=== PATIENT | male | born 1935 | race Caucasian/White ===

== ENCOUNTER → 2016-12-07 | Outpatient (CLI) | payer OTHER ==
--- NOTE | 2016-12-07 14:42 | DIAGNOSTIC IMAGING REPORT ---
CHEST 2 VIEWS ROUTINE CLINICAL HISTORY: R06.02 Shortness of [id number] COMPARISON STUDY: CT chest [facility] 08/14/2014 FINDINGS: Right mid hemithoracic masslike process stable to slightly improved from the prior CT exam. A left hilar fullness and left perihilar atelectatic change stable. No significant new or interval finding. Baseline emphysematous change. Chronic elevation right hemidiaphragm. Permanent bipolar cardiac pacemaker. IMPRESSION: Slightly improved exam compared to the patient's prior CT study. Persistent right perihilar masslike process diminished in volume from the prior CT exam. Unchanging left hilar fullness. Baseline emphysematous change unaltered Electronically signed by: Baljeet Myers M.D. 12/07/2016 2:40 PM Dictated Date/Time: 12/07/2016 2:38 PM
== END | disposition home or self-care (01) ==
LOC: C.RAD1850 14:22
PROVIDERS: ATTEND Physician Assistant Medical
DX: R06.02 Shortness of breath (principal)

== ENCOUNTER 2018-10-25 10:52 | Inpatient (IN) ==
[2018-10-25] MEDS ORDERED: OXYMETAZOLINE 0.05% 30 ML BTL ONE (11:01)
[2018-10-25] MEDS ORDERED: OXYMETAZOLINE 0.05% 30 ML BTL NAE ONE (11:04)
[2018-10-25] MEDS ORDERED: TRANEXAMIC ACID 10% SOLN for EPISTAXIS TOP ONE (11:31)
[2018-10-25] MEDS ORDERED: MoRPHine SULFATE 4 MG/ML 1 ML CARP\\VIAL IV STA (11:53)
[2018-10-25] MEDS ORDERED: ONDANSETRON INJ 2 MG/ML 2 ML VIAL IV STA (11:53)
[2018-10-25 12:43] LABS: Basophils # (auto) 0.01 K/uL (0-0.2); Basophils % (auto) 0.1 %; Eosinophils # (auto) 0.04 K/uL (0-0.5); Eosinophils % (auto) 0.4 %; Hematocrit (blood only) 30.2 % (42-52); Hemoglobin 10.2 g/dL (14.0-18.0); Immature Granulocytes # (auto) 0.03 K/uL (0.00-0.02); Immature Granulocytes % (auto) 0.3 %; Lymphocytes # (auto) 0.39 K/uL (1.2-3.4); Lymphocytes % (auto) 4.1 %; Mean Corpuscular Hgb Conc 33.8 g/dL (32-36); Mean Corpuscular Volume 90.7 fL (80-100); Monocytes # (auto) 0.18 K/uL (0.11-0.59); Monocytes % (auto) 1.9 %; Neutrophils # (auto) 8.96 K/uL (1.4-6.5); Neutrophils % (auto) 93.2 %; Platelet Count 151 K/uL (130-400); RDW Coefficient of Variation 13.8 % (11.5-14.5); RDW Standard Deviation 46.3 fL (36.4-46.3); Red Blood Count 3.33 M/uL (4.7-6.1); White Blood Count 9.61 K/uL (4.8-10.8)
[2018-10-25 12:56] LABS: INR 1.2 (0.9-1.1); Partial Thromboplastin Time 27.3 Seconds (21.0-31.0); Prothrombin Time 12.5 Seconds (9.0-12.0)
[2018-10-25 13:05] LABS: BUN Creatinine Ratio 23.8 (10-20); Calcium 8.1 mg/dl (8.5-10.1); Est GFR (African American) 57.7; Est GFR (Non-African American) 49.8; Potassium 5.5 mmol/L (3.5-5.1)
[2018-10-25 13:08] LABS: Albumin Globulin Ratio 1.2 (0.9-2); Bilirubin,Total 0.4 mg/dl (0.2-1); Globulin 2.5 gm/dl (2.5-4.0); Total Protein 5.5 gm/dl (6.4-8.2)
[2018-10-25] MEDS ORDERED: AMOXICILLIN/CLAVULANATE 875 MG TAB PO ONE (13:09)
--- NOTE | 2018-10-25 15:01 | Emergency Department Note ---
Entered by Varun Carpenter acting as a scribe for History of Present Illness General Chief complaint: Nose Bleed (Minor) Time Seen by Provider: 10/25/18 11:31 Source: patient Limitations: no limitations History of Present Illness Provider complaint: Nose bleed Onset (ago): hour(s) Location: face (nose) Severity: severe Pain Consistency: + constant Maximum Pain Intensity: 4 Quality: + other (epistaxis) Associated symptoms: + denies other symptoms Treatments prior to arrival: none The patient is an 83 year old male who presents to the Emergency Room with complaints of a severe and constant nose bleed that began shortly prior to arrival. The patient believes that the majority of the blood is coming from the left naris. He notes one previous episode of significant epistaxis that occurred about 30 years ago. He is on Aspirin daily. Home Medications Home Medications Medication Instructions Recorded Confirmed Type albuterol sulfate 2.5 mg INHALATION Q6 10/25/18 10/25/18 History albuterol sulfate [Ventolin HFA] 2 puff INHALATION Q6H PRN 10/25/18 10/25/18 History budesonide-formoterol [Symbicort] 2 puff INHALATION BID 10/25/18 10/25/18 History cholecalciferol (vitamin D3) 1,000 unit PO QAM 10/25/18 10/25/18 History [Vitamin D3] garlic 2,000 mg PO QAM 10/25/18 10/25/18 History npvdamqd-gyx-BL-lycopen-lutein 1 tab PO QAM 10/25/18 10/25/18 History [Centrum Silver] omega 6-bpx-ycy-fish oil [Fish Oil] 1 cap PO QAM 10/25/18 10/25/18 History prazosin 2 mg PO QAM 10/25/18 10/25/18 History simvastatin 20 mg PO HS 10/25/18 10/25/18 History finasteride 5 mg PO HS #30 tab 10/26/18 Rx magnesium oxide 400 mg PO BID #60 tab 10/26/18 10/25/18 Rx metformin 1,000 mg PO BID #60 tab 10/26/18 Rx sodium chloride [Saline Nasal] 2 sprays INTNAS Q3H PRN #30 ml 10/26/18 Rx Allergies Allergy/AdvReac Type Severity Reaction Status Date / Time No Known Allergies Allergy Unverified 10/25/18 12:26 Past Med/Surg History Medical History Anemia Asthma BPH (benign prostatic hyperplasia) Chronic silicosis Epistaxis H/O cardiac pacemaker HTN (hypertension) Surgical History H/O inguinal hernia repair History of orchiectomy Family History Other Dyslipidemia HTN (hypertension) Social History Current Living Situation: Alone Other Information That Helps Us Care for You: No Feels Safe at Home: Yes Safety Concerns: Feels Safe At This Time Smoking Status: Never smoker Hx Alcohol Use: No (not for many years) Hx Substance Use: No Beliefs That Will Affect Care: None Preferred Language: Serbian Review of Systems See HPI for pertinent positives & negatives. and A total of 10 systems reviewed and were otherwise negative Physical Exam Vital Signs Vital Signs - 24 hr 10/26/18 08:00 10/26/18 09:55 10/26/18 10:03 Temperature Temperature Source Pulse Rate - Lying Pulse Rate - Sitting Pulse Rate - Standing Pulse Rate [Right Finger] 72 79 Respiratory Rate 20 Respiratory Effort / Characteristics SOB on Exertion Respiratory Depth Normal Blood Pressure - Lying Blood Pressure - Sitting Blood Pressure- Standing Blood Pressure [Left Arm] Blood Pressure [Right Arm] 111/50 L 94/49 L Blood Pressure Mean [Right Arm] 70 64 Blood Pressure Position [Right Arm] Sitting Pulse Oximetry 93 Oxygen Delivery Method Room Air 10/26/18 10:04 10/26/18 11:12 10/26/18 11:14 Temperature 36.4 C L Temperature Source Oral Pulse Rate - Lying 75 Pulse Rate - Sitting 84 Pulse Rate - Standing 83 Pulse Rate [Right Finger] 75 75 Respiratory Rate 19 Respiratory Effort / Characteristics Respiratory Depth Blood Pressure - Lying 133/61 Blood Pressure - Sitting 115/50 L Blood Pressure- Standing 110/60 Blood Pressure [Left Arm] Blood Pressure [Right Arm] 79/51 L 133/61 Blood Pressure Mean [Right Arm] 60 85 Blood Pressure Position [Right Arm] Standing Lying Pulse Oximetry 93 Oxygen Delivery Method Room Air 10/26/18 15:14 10/26/18 18:13 Temperature 36.5 C 36.5 C Temperature Source Oral Pulse Rate - Lying Pulse Rate - Sitting Pulse Rate - Standing Pulse Rate [Right Finger] 70 70 Respiratory Rate 19 19 Respiratory Effort / Characteristics Respiratory Depth Blood Pressure - Lying Blood Pressure - Sitting Blood Pressure- Standing Blood Pressure [Left Arm] 129/61 Blood Pressure [Right Arm] 115/56 L 115/56 L Blood Pressure Mean [Right Arm] 75 Blood Pressure Position [Right Arm] Sitting Pulse Oximetry 98 98 Oxygen Delivery Method Room Air GENERAL: Awake, alert, well-appearing, in no acute distress HENT: Normocephalic, atraumatic. Oropharynx unremarkable. There is a large amount of blood mostly present to the left nostril. EYES: Normal conjunctiva. Sclera non-icteric. NECK: Supple. No nuchal rigidity. FROM. No JVD. RESPIRATORY: Clear to auscultation. CARDIAC: Regular rate, normal rhythm. Extremities warm and well perfused. Pulses equal. ABDOMEN: Soft, non-distended. No tenderness to palpation. No rebound or guarding. No masses. RECTAL: Deferred. MUSCULOSKELETAL: Chest examination reveals no tenderness. The back is symmetrical on inspection without obvious abnormality. There is no CVA tenderness to palpation. No joint edema. LOWER EXTREMITIES: Calves are equal size bilaterally and non-tender. No edema. No discoloration. NEURO: Normal sensorium. No sensory or motor deficits noted. SKIN: No rash or jaundice noted. Procedures Epistaxis Control Time Out Performed: Yes Nostril: left Nose Prepped With: lidocaine, oxymetazoline and other (TXA) Direct Inspection: unable to visualize Clots Removed by: suction Cautery Used: none Device Inserted: nasal tampon and hemostatic balloon Patient Tolerated Procedure: well Complications: continued epistaxis Course 1118: Past medical records reviewed. The patient was evaluated in room A10, and a complete history and physical examination were performed. 1252: I checked on the patient at this time. The bleeding is much controlled. 1355: I discussed the case with Dr. Js DOSS. He agrees with the treatment plan. 1409: I reviewed the patient's case with Dr. Guicho Salazar [facility] Hospitalist. He will evaluate the patient for further management. Consultations Consultation #1: 1355: I discussed the case with Dr. Js DOSS. He agrees with the treatment plan. Consultation #2: 1409: I reviewed the patient's case with Dr. Guicho Salazar [facility] Hospitalist. He will evaluate the patient for further management. Administered Medications Discontinued Medications Amoxicillin/Clavulanate Potassium (Augmentin 875mg) 1 tab PO NOW ONE Stop: 10/25/18 13:10 Last Admin: 10/25/18 14:04 Dose: 1 tab Budesonide/Formoterol Fumarate (Symbicort 160mcg/4.5mcg) 2 puffs INH BID ANNA Stop: 11/24/18 20:59 Last Admin: 10/26/18 08:06 Dose: 2 puffs Admin: 10/25/18 20:39 Dose: 2 puffs Sodium Chloride (Nss 1000ml) 1,000 mls @ 80 mls/hr IV .[id number] ANNA Stop: 10/26/18 05:29 Last Infusion: 10/26/18 05:29 Dose: 0 mls/hr Admin: 10/25/18 17:09 Dose: 80 mls/hr Sodium Chloride (Nss 1000ml) 1,000 mls @ 999 mls/hr IV .Q1H1M ONE Stop: 10/26/18 11:09 Last Infusion: 10/26/18 11:23 Dose: 0 mls/hr Admin: 10/26/18 10:22 Dose: 999 mls/hr Insulin Aspart (Novolog Flexpen) 0 units SC ACHS ANNA Stop: 11/25/18 11:29 Last Admin: 10/26/18 16:48 Dose: 5 units Admin: 10/26/18 11:57 Dose: 6 units Magnesium Oxide (Mag-Ox) 400 mg PO QID ANNA Stop: 11/24/18 16:59 Last Admin: 10/26/18 16:49 Dose: 400 mg Admin: 10/26/18 11:59 Dose: 400 mg Admin: 10/26/18 08:06 Dose: 400 mg Admin: 10/25/18 20:38 Dose: 400 mg Admin: 10/25/18 18:22 Dose: 400 mg Morphine Sulfate (Morphine Sulfate) 4 mg IV NOW STA Stop: 10/25/18 11:54 Last Admin: 10/25/18 11:57 Dose: 4 mg Ondansetron HCl (Zofran) 4 mg IV NOW STA Stop: 10/25/18 11:54 Last Admin: 10/25/18 11:57 Dose: 4 mg Oxymetazoline HCl (Afrin 0.05%) Confirm Administered Dose 75 sprays .ROUTE .STK- MED ONE Stop: 10/25/18 11:02 Last Admin: 10/25/18 11:33 Dose: Not Given Oxymetazoline HCl (Afrin 0.05%) 2 sprays VANESSA NOW ONE Stop: 10/25/18 11:05 Last Admin: 10/25/18 11:10 Dose: 2 sprays Prazosin HCl (Prazosin Hcl) 2 mg PO QAM ANNA Stop: 11/25/18 08:59 Last Admin: 10/26/18 08:05 Dose: 2 mg Simvastatin (Zocor) 20 mg PO HS ANNA Stop: 11/24/18 20:59 Last Admin: 10/25/18 20:38 Dose: 20 mg Tranexamic Acid (Tranexamic Acid 10% Soln For Epistaxis) 500 mg TOP ONE ONE Stop: 10/25/18 11:32 Last Admin: 10/25/18 11:52 Dose: 500 mg Vitamin D (Vitamin D3) 1,000 units PO QAM ANNA Stop: 11/25/18 08:59 Last Admin: 10/26/18 08:06 Dose: 1,000 units Medical Decision Making Differential Diagnosis Differential diagnosis: Etiologies such as anterior epistaxis, coagulopathy, thrombocytopenia, traumatic injury, fracture, septal hematoma, infection, posterior epistaxis as well as other pathologies were entertained. Medical Records Attestation: I reviewed the patient's medical records. Home Medications Current Medication List: was personally reviewed by me Laboratory Data Attestation: I reviewed the patient's lab results. Result diagrams: 10/26/18 07:47 10/26/18 07:47 Lab Results 10/25/18 10/25/18 10/25/18 Range/Units 12:32 12:32 12:32 WBC 9.61 (4.8-10.8) K/uL RBC 3.33 L (4.7-6.1) M/uL Hgb 10.2 L (14.0-18.0) g/dL Hct 30.2 L (42-52) % MCV 90.7 (80-100) fL MCH 30.6 (25-34) pg MCHC 33.8 (32-36) g/dL RDW Std Deviation 46.3 (36.4-46.3) fL RDW Coeff of Maria L 13.8 (11.5-14.5) % Plt Count 151 (130-400) K/uL MPV 10.0 (7.4-10.4) fL Immature Gran % (Auto) 0.3 % Neut % (Auto) 93.2 % Lymph % (Auto) 4.1 % [place] % (Auto) 1.9 % Eos % (Auto) 0.4 % Baso % (Auto) 0.1 % Immature Gran # (Auto) 0.03 H (0.00-0.02) K/uL Neut # (Auto) 8.96 H (1.4-6.5) K/uL Lymph # (Auto) 0.39 L (1.2-3.4) K/uL [place] # (Auto) 0.18 (0.11-0.59) K/uL Eos # (Auto) 0.04 (0-0.5) K/uL Baso # (Auto) 0.01 (0-0.2) K/uL PT 12.5 H (9.0-12.0) Seconds INR 1.2 H (0.9-1.1) APTT 27.3 (21.0-31.0) Seconds PTT Ratio 1.0 Sodium 136 (136-145) mmol/L Potassium 5.5 H (3.5-5.1) mmol/L Chloride 106 (98-107) mmol/L Carbon Dioxide 26 (21-32) mmol/L Anion Gap 5.0 (3-11) BUN 31 H (7-18) mg/dl Creatinine 1.30 (0.6-1.4) mg/dl Est Cr Clr Drug Dosing 43.0 ml/min Est GFR ( Amer) 57.7 Est GFR (Non-Af Amer) 49.8 BUN/Creatinine Ratio 23.8 H (10-20) Glucose 213 H (70-99) mg/dl POC Glucose (70-99) Calcium 8.1 L (8.5-10.1) mg/dl Total Bilirubin 0.4 (0.2-1) mg/dl AST 17 (15-37) U/L ALT 20 (12-78) U/L Alkaline Phosphatase 41 L (45-117) U/L Total Protein 5.5 L (6.4-8.2) gm/dl Albumin 3.0 L (3.4-5.0) gm/dl Globulin 2.5 (2.5-4.0) gm/dl Albumin/Globulin Ratio 1.2 (0.9-2) Lipase 56 L (73-393) U/L Urine Color Urine Appearance (Clear) Urine pH (4.5-7.5) Ur Specific Sieper (1.000-1.030) Urine Protein (Negative) Urine Glucose (UA) (Negative) Urine Ketones (Negative) Urine Blood (Negative) Urine Nitrite (Negative) Urine Bilirubin (Negative) Urine Urobilinogen (Negative) Ur Leukocyte Esterase (Negative) Blood Type Antibody Screen 10/25/18 10/25/18 10/25/18 Range/Units 14:22 16:20 17:42 WBC (4.8-10.8) K/uL RBC (4.7-6.1) M/uL Hgb 10.5 L (14.0-18.0) g/dL Hct 31.7 L (42-52) % MCV (80-100) fL MCH (25-34) pg MCHC (32-36) g/dL RDW Std Deviation (36.4-46.3) fL RDW Coeff of Maria L (11.5-14.5) % Plt Count (130-400) K/uL MPV (7.4-10.4) fL Immature Gran % (Auto) % Neut % (Auto) % Lymph % (Auto) % [place] % (Auto) % Eos % (Auto) % Baso % (Auto) % Immature Gran # (Auto) (0.00-0.02) K/uL Neut # (Auto) (1.4-6.5) K/uL Lymph # (Auto) (1.2-3.4) K/uL [place] # (Auto) (0.11-0.59) K/uL Eos # (Auto) (0-0.5) K/uL Baso # (Auto) (0-0.2) K/uL PT (9.0-12.0) Seconds INR (0.9-1.1) APTT (21.0-31.0) Seconds PTT Ratio Sodium (136-145) mmol/L Potassium (3.5-5.1) mmol/L Chloride (98-107) mmol/L Carbon Dioxide (21-32) mmol/L Anion Gap (3-11) BUN (7-18) mg/dl Creatinine (0.6-1.4) mg/dl Est Cr Clr Drug Dosing ml/min Est GFR ( Amer) Est GFR (Non-Af Amer) BUN/Creatinine Ratio (10-20) Glucose (70-99) mg/dl POC Glucose 171 H (70-99) Calcium (8.5-10.1) mg/dl Total Bilirubin (0.2-1) mg/dl AST (15-37) U/L ALT (12-78) U/L Alkaline Phosphatase (45-117) U/L Total Protein (6.4-8.2) gm/dl Albumin (3.4-5.0) gm/dl Globulin (2.5-4.0) gm/dl Albumin/Globulin Ratio (0.9-2) Lipase (73-393) U/L Urine Color Urine Appearance (Clear) Urine pH (4.5-7.5) Ur Specific Sieper (1.000-1.030) Urine Protein (Negative) Urine Glucose (UA) (Negative) Urine Ketones (Negative) Urine Blood (Negative) Urine Nitrite (Negative) Urine Bilirubin (Negative) Urine Urobilinogen (Negative) Ur Leukocyte Esterase (Negative) Blood Type O Positive Antibody Screen NEGATIVE 10/25/18 10/25/18 10/26/18 Range/Units 18:00 20:22 07:14 WBC (4.8-10.8) K/uL RBC (4.7-6.1) M/uL Hgb (14.0-18.0) g/dL Hct (42-52) % MCV (80-100) fL MCH (25-34) pg MCHC (32-36) g/dL RDW Std Deviation (36.4-46.3) fL RDW Coeff of Maria L (11.5-14.5) % Plt Count (130-400) K/uL MPV (7.4-10.4) fL Immature Gran % (Auto) % Neut % (Auto) % Lymph % (Auto) % [place] % (Auto) % Eos % (Auto) % Baso % (Auto) % Immature Gran # (Auto) (0.00-0.02) K/uL Neut # (Auto) (1.4-6.5) K/uL Lymph # (Auto) (1.2-3.4) K/uL [place] # (Auto) (0.11-0.59) K/uL Eos # (Auto) (0-0.5) K/uL Baso # (Auto) (0-0.2) K/uL PT (9.0-12.0) Seconds INR (0.9-1.1) APTT (21.0-31.0) Seconds PTT Ratio Sodium (136-145) mmol/L Potassium (3.5-5.1) mmol/L Chloride (98-107) mmol/L Carbon Dioxide (21-32) mmol/L Anion Gap (3-11) BUN (7-18) mg/dl Creatinine (0.6-1.4) mg/dl Est Cr Clr Drug Dosing ml/min Est GFR ( Amer) Est GFR (Non-Af Amer) BUN/Creatinine Ratio (10-20) Glucose (70-99) mg/dl POC Glucose 181 H 140 H (70-99) Calcium (8.5-10.1) mg/dl Total Bilirubin (0.2-1) mg/dl AST (15-37) U/L ALT (12-78) U/L Alkaline Phosphatase (45-117) U/L Total Protein (6.4-8.2) gm/dl Albumin (3.4-5.0) gm/dl Globulin (2.5-4.0) gm/dl Albumin/Globulin Ratio (0.9-2) Lipase (73-393) U/L Urine Color Yellow Urine Appearance Clear (Clear) Urine pH 7.5 (4.5-7.5) Ur Specific Sieper 1.019 (1.000-1.030) Urine Protein Negative (Negative) Urine Glucose (UA) Trace H (Negative) Urine Ketones Negative (Negative) Urine Blood Negative (Negative) Urine Nitrite Negative (Negative) Urine Bilirubin Negative (Negative) Urine Urobilinogen Negative (Negative) Ur Leukocyte Esterase Negative (Negative) Blood Type Antibody Screen 10/26/18 10/26/18 10/26/18 Range/Units 07:47 07:47 11:19 WBC 10.89 H (4.8-10.8) K/uL RBC 3.60 L (4.7-6.1) M/uL Hgb 11.0 L (14.0-18.0) g/dL Hct 32.3 L (42-52) % MCV 89.7 (80-100) fL MCH 30.6 (25-34) pg MCHC 34.1 (32-36) g/dL RDW Std Deviation 45.9 (36.4-46.3) fL RDW Coeff of Maria L 13.9 (11.5-14.5) % Plt Count 176 (130-400) K/uL MPV 10.1 (7.4-10.4) fL Immature Gran % (Auto) 0.1 % Neut % (Auto) 90.5 % Lymph % (Auto) 5.9 % [place] % (Auto) 3.1 % Eos % (Auto) 0.3 % Baso % (Auto) 0.1 % Immature Gran # (Auto) 0.01 (0.00-0.02) K/uL Neut # (Auto) 9.86 H (1.4-6.5) K/uL Lymph # (Auto) 0.64 L (1.2-3.4) K/uL [place] # (Auto) 0.34 (0.11-0.59) K/uL Eos # (Auto) 0.03 (0-0.5) K/uL Baso # (Auto) 0.01 (0-0.2) K/uL PT (9.0-12.0) Seconds INR (0.9-1.1) APTT (21.0-31.0) Seconds PTT Ratio Sodium 138 (136-145) mmol/L Potassium 4.4 D (3.5-5.1) mmol/L Chloride 105 (98-107) mmol/L Carbon Dioxide 28 (21-32) mmol/L Anion Gap 5.0 (3-11) BUN 36 H (7-18) mg/dl Creatinine 1.32 (0.6-1.4) mg/dl Est Cr Clr Drug Dosing 41.6 ml/min Est GFR ( Amer) 56.6 Est GFR (Non-Af Amer) 48.8 BUN/Creatinine Ratio 27.3 H (10-20) Glucose 143 H (70-99) mg/dl POC Glucose 262 H (70-99) Calcium 8.7 (8.5-10.1) mg/dl Total Bilirubin (0.2-1) mg/dl AST (15-37) U/L ALT (12-78) U/L Alkaline Phosphatase (45-117) U/L Total Protein (6.4-8.2) gm/dl Albumin (3.4-5.0) gm/dl Globulin (2.5-4.0) gm/dl Albumin/Globulin Ratio (0.9-2) Lipase (73-393) U/L Urine Color Urine Appearance (Clear) Urine pH (4.5-7.5) Ur Specific [place] (1.000-1.030) Urine Protein (Negative) Urine Glucose (UA) (Negative) Urine Ketones (Negative) Urine Blood (Negative) Urine Nitrite (Negative) Urine Bilirubin (Negative) Urine Urobilinogen (Negative) Ur Leukocyte Esterase (Negative) Blood Type Antibody Screen 10/26/18 Range/Units 16:15 WBC (4.8-10.8) K/uL RBC (4.7-6.1) M/uL Hgb (14.0-18.0) g/dL Hct (42-52) % MCV (80-100) fL MCH (25-34) pg MCHC (32-36) g/dL RDW Std Deviation (36.4-46.3) fL RDW Coeff of Maria L (11.5-14.5) % Plt Count (130-400) K/uL MPV (7.4-10.4) fL Immature Gran % (Auto) % Neut % (Auto) % Lymph % (Auto) % [place] % (Auto) % Eos % (Auto) % Baso % (Auto) % Immature Gran # (Auto) (0.00-0.02) K/uL Neut # (Auto) (1.4-6.5) K/uL Lymph # (Auto) (1.2-3.4) K/uL [place] # (Auto) (0.11-0.59) K/uL Eos # (Auto) (0-0.5) K/uL Baso # (Auto) (0-0.2) K/uL PT (9.0-12.0) Seconds INR (0.9-1.1) APTT (21.0-31.0) Seconds PTT Ratio Sodium (136-145) mmol/L Potassium (3.5-5.1) mmol/L Chloride (98-107) mmol/L Carbon Dioxide (21-32) mmol/L Anion Gap (3-11) BUN (7-18) mg/dl Creatinine (0.6-1.4) mg/dl Est Cr Clr Drug Dosing ml/min Est GFR ( Amer) Est GFR (Non-Af Amer) BUN/Creatinine Ratio (10-20) Glucose (70-99) mg/dl POC Glucose 211 H (70-99) Calcium (8.5-10.1) mg/dl Total Bilirubin (0.2-1) mg/dl AST (15-37) U/L ALT (12-78) U/L Alkaline Phosphatase (45-117) U/L Total Protein (6.4-8.2) gm/dl Albumin (3.4-5.0) gm/dl Globulin (2.5-4.0) gm/dl Albumin/Globulin Ratio (0.9-2) Lipase (73-393) U/L Urine Color Urine Appearance (Clear) Urine pH (4.5-7.5) Ur Specific [place] (1.000-1.030) Urine Protein (Negative) Urine Glucose (UA) (Negative) Urine Ketones (Negative) Urine Blood (Negative) Urine Nitrite (Negative) Urine Bilirubin (Negative) Urine Urobilinogen (Negative) Ur Leukocyte Esterase (Negative) Blood Type Antibody Screen Blood Pressure Blood Pressure Findings: Normal blood pressure MDM Narrative This is an 83-year-old male who presents emergency department complaining of a a large amount of epistaxis. A nasal tampon was immediately inserted however the patient continues to bleed. At that point a balloon was inserted. The patient was also given TXA. I did discuss the case with the ear nose and throat surgeon client resolution specialist who asked that the patient be admitted to the hospitalist service. He was started on Augmentin. Patient and family were in agreement with the treatment plan. Impression & Plan Epistaxis Critical Care Time I have personally spent greater than 30 minutes of critical care time in the direct management of this patient. This includes bedside care, interpretation of diagnostic studies, and testing, discussion with consultants, patient, and family members, and other required patient management activities. This 30 minutes is in excess of all separately billable procedures. Discharge Plan Visit Data *Final* Discharge Date/Time: 10/25/18 15:56 Chief Complaint: Nose Bleed (Minor) ED Provider: Gabino Guzman Discharge Problem: Epistaxis Patient Disposition: Admitted As Inpatient Discharge Instructions Interventions: ED Discharge Assessment Last Done: 10/25/18 15:56 The scribe's documentation has been prepared under my direction and personally reviewed by me in its entirety. I confirm that the note above accurately reflects all work, treatment, procedures, and medical decision making performed by me.
--- NOTE | 2018-10-25 15:59 | History & Physical Report ---
Date of Service October 25, 2018 Assessment & Plan (1) Epistaxis: spontaneous onset, no trauma bleeding stopped for now hold aspirin keep packing in place until seen by Dr. Weinstein tomorrow further recommendations per Dr. Weinstein (2) Anemia: acute blood loss from epistaxis repeat H/H this evening, typed and crossed BP stable so would not tranfuse unless Hb < 7 (3) Hypotension: transient, when he was bleeding resolved with 1L NSS so likely from some low volume continue to monitor closely, vitals q4 on tele overnight (4) HTN (hypertension): hold Lisinopril and HCTZ due to hypotension, bleeding (5) Asthma: lungs clear bilaterally, continue maintenance inhalers (6) Chronic silicosis: due to working in [place] not on home oxygen (7) BPH (benign prostatic hyperplasia): continue home meds (8) H/O cardiac pacemaker: History of Present Illness Chief Complaint: I had a bloody nose Primary Care Provider: oSfia Coronado MD 83 yo male with history of HTN, pacemaker, BPH who presents with severe nosebleed from left nostril. The patient says he was sitting at home when suddenly he started to bleed from left nostril. It started as a trickle but quickly picked up pace. His entire shirt was covered in blood by the time he arrived at the ED. He said that he did not have cold symptoms or sinus congestion, he denied picking his nose, the bleeding started spontaneously. He said that 30 years ago he had a spontaneous nosebleed that was cauterized by ENT in [place]. He has not had any bleeding since. No pain in his nose or sinuses. He takes aspirin, no other blood thinners. Dr. Guzman in the ED was able to stop the bleeding with nasal packing. He discussed with Dr. Weinstein with ENT, told to keep the packing in place, he will see tomorrow on rounds. The patient was momentarily hypotensive with BP 80's systolic, given one liter of NSS and pressures normalized. Hb 10.2, unsure of baseline due to lack of prior records. Patient has hypertension and a history of pacemaker implantation many years ago by Dr. Vargas in [facility]. His other surgical history is for right inguinal hernia repair and orchiectomy two years ago at [facility]. He carries a diagnosis of Silicosis due to working at the [employer] for 45 years. He breaths well without oxygen. No significant family history, no bleeding disorders to his knowledge. Allergies Allergy/AdvReac Type Severity Reaction Status Date / Time No Known Allergies Allergy Unverified 10/25/18 12:26 Home Medications Home Medications Medication Instructions Recorded Confirmed Type Prostate Pill 5 mg PO HS 10/25/18 10/25/18 History albuterol sulfate 2.5 mg INHALATION Q6 10/25/18 10/25/18 History albuterol sulfate [Ventolin HFA] 2 puff INHALATION Q6H PRN 10/25/18 10/25/18 History aspirin 81 mg PO QAM 10/25/18 10/25/18 History budesonide-formoterol [Symbicort] 2 puff INHALATION BID 10/25/18 10/25/18 History cholecalciferol (vitamin D3) 1,000 unit PO QAM 10/25/18 10/25/18 History [Vitamin D3] garlic 2,000 mg PO QAM 10/25/18 10/25/18 History hydrochlorothiazide 25 mg PO QAM 10/25/18 10/25/18 History lisinopril 5 mg PO QAM 10/25/18 10/25/18 History magnesium oxide 400 mg PO QID 10/25/18 10/25/18 History zpuovsfm-djm-CK-lycopen-lutein 1 tab PO QAM 10/25/18 10/25/18 History [Centrum Silver] omega 6-pzq-jys-fish oil [Fish Oil] 1 cap PO QAM 10/25/18 10/25/18 History prazosin 2 mg PO QAM 10/25/18 10/25/18 History simvastatin 20 mg PO HS 10/25/18 10/25/18 History Past Med/Surg History Medical History Anemia Asthma BPH (benign prostatic hyperplasia) Chronic silicosis Epistaxis H/O cardiac pacemaker HTN (hypertension) Surgical History H/O inguinal hernia repair History of orchiectomy Family History Other Dyslipidemia HTN (hypertension) Social History Feels Safe at Home: Yes Smoking Status: Never smoker Review of Systems All systems reviewed & are unremarkable except as noted in HPI & below Ear, Nose, Mouth, Throat: + epistaxis (left nostril) Physical Exam 2 Vital Signs (Past 24 Hours): Last Vital Signs Temp 36.7 C 10/25/18 11:00 Pulse 83 10/25/18 15:04 Resp 17 10/25/18 15:04 BP 120/74 10/25/18 15:04 Pulse Ox 96 10/25/18 15:04 Constitutional: WD/WN, vitals as above Eyes: PERRL, conjunctivae normal, anicteric sclerae ENMT: Ears: + hearing impairment Nose: + external nose abnormality (left nostril packed, dried blood on nose and lip) Neck: trachea midline, no thyromegaly Respiratory: normal respiratory effort, lungs clear to auscultation Cardiovascular: RRR, no murmur, no edema Gastrointestinal (Abdomen): normal bowel sounds, soft, nontender, no hepatosplenomegaly Musculoskeletal: no cyanosis or clubbing, extremities motor strength 5/5 Skin: no rashes, warm and dry Neurologic: patellar DTR's 2+ bilat, sensation intact and PERRL, EOMI, accommodation nl, no face palsy, no dysarthria Psychiatric: A+Ox3, euthymic affect Lymphatic: no cervical or axillary lymphadenopathy Results & Data Laboratory Results Laboratory Results - last 24 hr 10/25/18 10/25/18 10/25/18 12:32 12:32 12:32 WBC 9.61 RBC 3.33 L Hgb 10.2 L Hct 30.2 L MCV 90.7 MCH 30.6 MCHC 33.8 RDW Std Deviation 46.3 RDW Coeff of Maria L 13.8 Plt Count 151 MPV 10.0 Immature Gran % (Auto) 0.3 Neut % (Auto) 93.2 Lymph % (Auto) 4.1 Christian % (Auto) 1.9 Eos % (Auto) 0.4 Baso % (Auto) 0.1 Immature Gran # (Auto) 0.03 H Neut # (Auto) 8.96 H Lymph # (Auto) 0.39 L Christian # (Auto) 0.18 Eos # (Auto) 0.04 Baso # (Auto) 0.01 PT 12.5 H INR 1.2 H APTT 27.3 PTT Ratio 1.0 Sodium 136 Potassium 5.5 H Chloride 106 Carbon Dioxide 26 Anion Gap 5.0 BUN 31 H Creatinine 1.30 Est Cr Clr Drug Dosing 43.0 Est GFR ( Amer) 57.7 Est GFR (Non-Af Amer) 49.8 BUN/Creatinine Ratio 23.8 H Glucose 213 H Calcium 8.1 L Total Bilirubin 0.4 AST 17 ALT 20 Alkaline Phosphatase 41 L Total Protein 5.5 L Albumin 3.0 L Globulin 2.5 Albumin/Globulin Ratio 1.2 Lipase 56 L Blood Type Antibody Screen 10/25/18 14:22 WBC RBC Hgb Hct MCV MCH MCHC RDW Std Deviation RDW Coeff of Maria L Plt Count MPV Immature Gran % (Auto) Neut % (Auto) Lymph % (Auto) Christian % (Auto) Eos % (Auto) Baso % (Auto) Immature Gran # (Auto) Neut # (Auto) Lymph # (Auto) Christian # (Auto) Eos # (Auto) Baso # (Auto) PT INR APTT PTT Ratio Sodium Potassium Chloride Carbon Dioxide Anion Gap BUN Creatinine Est Cr Clr Drug Dosing Est GFR ( Amer) Est GFR (Non-Af Amer) BUN/Creatinine Ratio Glucose Calcium Total Bilirubin AST ALT Alkaline Phosphatase Total Protein Albumin Globulin Albumin/Globulin Ratio Lipase Blood Type O Positive Antibody Screen NEGATIVE Code Status & VTE Plan Code Status full code VTE Prophylaxis Plan VTE Prophylaxis will be ordered: No Reason for no VTE drug order: Contraindicated
[2018-10-25] MEDS ORDERED: POLYETHYLENE (MIRALAX) 17 GM PACK PO PRN (16:14)
[2018-10-25] MEDS ORDERED: ONDANSETRON INJ 2 MG/ML 2 ML VIAL IV PRN (16:14)
[2018-10-25] MEDS ORDERED: ALBUTEROL HFA 8 GM INHALER INH PRN (16:14)
[2018-10-25] MEDS ORDERED: ACETAMINOPHEN 325 MG TAB PO PRN (16:14)
[2018-10-25] MEDS ORDERED: SODIUM CHLORIDE 0.9% 1000ML 1,000 ML IV SCH (17:00)
[2018-10-25 18:09] LABS: Hematocrit (blood only) 31.7 % (42-52); Hemoglobin 10.5 g/dL (14.0-18.0)
[2018-10-25] MEDS: MAGNESIUM OXIDE 400 MG TAB PO SCH ×2 (18:22→20:38)
[2018-10-25 19:34] LABS: Appearance Urine Clear (Clear); Bilirubin Urine Negative (Negative); Color Urine Yellow; Glucose Urine UA Trace (Negative); Ketones Urine Negative (Negative); Leukocyte Esterase Urine Negative (Negative); Nitrite Urine Negative (Negative); Protein Urine Negative (Negative); Specific Gravity Urine 1.019 (1.000-1.030); Urobilinogen Urine Negative (Negative); pH Urine 7.5 (4.5-7.5)
[2018-10-25] MEDS: BUDESONIDE/FORMOTEROL FUMARATE 160/4.5 60 PUFFS/INHALER INH SCH (20:39)
[2018-10-25] MEDS ORDERED: SIMVASTATIN 20 MG TAB PO SCH (21:00)
[2018-10-26 08:04] LABS: Basophils # (auto) 0.01 K/uL (0-0.2); Basophils % (auto) 0.1 %; Eosinophils # (auto) 0.03 K/uL (0-0.5); Eosinophils % (auto) 0.3 %; Hematocrit (blood only) 32.3 % (42-52); Immature Granulocytes # (auto) 0.01 K/uL (0.00-0.02); Immature Granulocytes % (auto) 0.1 %; Lymphocytes # (auto) 0.64 K/uL (1.2-3.4); Lymphocytes % (auto) 5.9 %; Mean Corpuscular Hgb Conc 34.1 g/dL (32-36); Mean Corpuscular Volume 89.7 fL (80-100); Mean Platelet Volume 10.1 fL (7.4-10.4); Monocytes # (auto) 0.34 K/uL (0.11-0.59); Monocytes % (auto) 3.1 %; Neutrophils # (auto) 9.86 K/uL (1.4-6.5); Neutrophils % (auto) 90.5 %; Platelet Count 176 K/uL (130-400); RDW Coefficient of Variation 13.9 % (11.5-14.5); RDW Standard Deviation 45.9 fL (36.4-46.3); White Blood Count 10.89 K/uL (4.8-10.8)
[2018-10-26] MEDS: BUDESONIDE/FORMOTEROL FUMARATE 160/4.5 60 PUFFS/INHALER INH SCH (08:06)
[2018-10-26] MEDS: MAGNESIUM OXIDE 400 MG TAB PO SCH ×3 (08:06→16:49)
[2018-10-26 08:51] LABS: BUN Creatinine Ratio 27.3 (10-20); Calcium 8.7 mg/dl (8.5-10.1); Creatinine Clr Calc Pharmacy 41.6 ml/min; Est GFR (African American) 56.6; Est GFR (Non-African American) 48.8; Potassium 4.4 mmol/L (3.5-5.1)
[2018-10-26] MEDS ORDERED: PRAZOSIN HCL 1 MG CAP PO SCH (09:00)
[2018-10-26] MEDS ORDERED: CHOLECALCIFEROL 1,000 UNITS TAB PO SCH (09:00)
[2018-10-26] MEDS ORDERED: SODIUM CHLORIDE 0.9% 1000ML 1,000 ML IV ONE (10:09)
[2018-10-26] MEDS ORDERED: SODIUM CHLORIDE 0.65% NA SOLN 45 ML (OCEAN) PRN (11:04)
[2018-10-26] MEDS: INSULIN ASPART 100 UNITS/ML 3 ML PEN SC SCH ×2 (11:57→16:48)
--- NOTE | 2018-10-26 14:41 | Hospitalist Progress Note ---
Date of Service October 26, 2018 Physical Exam 2 Vital Signs (Past 24 Hours): Last Vital Signs Temp 36.4 C L 10/26/18 11:12 Pulse 75 10/26/18 11:12 Resp 19 10/26/18 11:12 BP 133/61 10/26/18 11:12 Pulse Ox 93 10/26/18 11:12 Results & Data Laboratory Results Laboratory Results - last 24 hr 10/25/18 10/25/18 10/25/18 14:22 16:20 17:42 WBC RBC Hgb 10.5 L Hct 31.7 L MCV MCH MCHC RDW Std Deviation RDW Coeff of Maria L Plt Count MPV Immature Gran % (Auto) Neut % (Auto) Lymph % (Auto) [place] % (Auto) Eos % (Auto) Baso % (Auto) Immature Gran # (Auto) Neut # (Auto) Lymph # (Auto) [place] # (Auto) Eos # (Auto) Baso # (Auto) Sodium Potassium Chloride Carbon Dioxide Anion Gap BUN Creatinine Est Cr Clr Drug Dosing Est GFR ( Amer) Est GFR (Non-Af Amer) BUN/Creatinine Ratio Glucose POC Glucose 171 H Calcium Urine Color Urine Appearance Urine pH Ur Specific [place] Urine Protein Urine Glucose (UA) Urine Ketones Urine Blood Urine Nitrite Urine Bilirubin Urine Urobilinogen Ur Leukocyte Esterase Blood Type O Positive Antibody Screen NEGATIVE 10/25/18 10/25/18 10/26/18 18:00 20:22 07:14 WBC RBC Hgb Hct MCV MCH MCHC RDW Std Deviation RDW Coeff of Maria L Plt Count MPV Immature Gran % (Auto) Neut % (Auto) Lymph % (Auto) [place] % (Auto) Eos % (Auto) Baso % (Auto) Immature Gran # (Auto) Neut # (Auto) Lymph # (Auto) [place] # (Auto) Eos # (Auto) Baso # (Auto) Sodium Potassium Chloride Carbon Dioxide Anion Gap BUN Creatinine Est Cr Clr Drug Dosing Est GFR ( Amer) Est GFR (Non-Af Amer) BUN/Creatinine Ratio Glucose POC Glucose 181 H 140 H Calcium Urine Color Yellow Urine Appearance Clear Urine pH 7.5 Ur Specific [place] 1.019 Urine Protein Negative Urine Glucose (UA) Trace H Urine Ketones Negative Urine Blood Negative Urine Nitrite Negative Urine Bilirubin Negative Urine Urobilinogen Negative Ur Leukocyte Esterase Negative Blood Type Antibody Screen 10/26/18 10/26/1819 07:47 07:47 11:19 WBC 10.89 H RBC 3.60 L Hgb 11.0 L Hct 32.3 L MCV 89.7 MCH 30.6 MCHC 34.1 RDW Std Deviation 45.9 RDW Coeff of Maria L 13.9 Plt Count 176 MPV 10.1 Immature Gran % (Auto) 0.1 Neut % (Auto) 90.5 Lymph % (Auto) 5.9 [place] % (Auto) 3.1 Eos % (Auto) 0.3 Baso % (Auto) 0.1 Immature Gran # (Auto) 0.01 Neut # (Auto) 9.86 H Lymph # (Auto) 0.64 L [place] # (Auto) 0.34 Eos # (Auto) 0.03 Baso # (Auto) 0.01 Sodium 138 Potassium 4.4 D Chloride 105 Carbon Dioxide 28 Anion Gap 5.0 BUN 36 H Creatinine 1.32 Est Cr Clr Drug Dosing 41.6 Est GFR ( Amer) 56.6 Est GFR (Non-Af Amer) 48.8 BUN/Creatinine Ratio 27.3 H Glucose 143 H POC Glucose 262 H Calcium 8.7 Urine Color Urine Appearance Urine pH Ur Specific [place] Urine Protein Urine Glucose (UA) Urine Ketones Urine Blood Urine Nitrite Urine Bilirubin Urine Urobilinogen Ur Leukocyte Esterase Blood Type Antibody Screen
--- NOTE | 2018-10-26 17:19 | Surgery Consultation ---
Date of Consultation October 26, 2018 Assessment & Plan (1) Epistaxis: No further bleeding. He can be seen by me in my office early next week for removal of packing. Further management of hypotension per medical. Thanks for the consult. History of Present Illness Reason for Consultation: epistaxis Attending Physician: Damion Augustine History of Present Illness sudden onset of epistaxis, admitted for hypotension Allergies Allergy/AdvReac Type Severity Reaction Status Date / Time No Known Allergies Allergy Unverified 10/25/18 12:26 Home Medications Home Medications Medication Instructions Recorded Confirmed Type Prostate Pill 5 mg PO HS 10/25/18 10/25/18 History albuterol sulfate 2.5 mg INHALATION Q6 10/25/18 10/25/18 History albuterol sulfate [Ventolin HFA] 2 puff INHALATION Q6H PRN 10/25/18 10/25/18 History aspirin 81 mg PO QAM 10/25/18 10/25/18 History budesonide-formoterol [Symbicort] 2 puff INHALATION BID 10/25/18 10/25/18 History cholecalciferol (vitamin D3) 1,000 unit PO QAM 10/25/18 10/25/18 History [Vitamin D3] garlic 2,000 mg PO QAM 10/25/18 10/25/18 History hydrochlorothiazide 25 mg PO QAM 10/25/18 10/25/18 History lisinopril 5 mg PO QAM 10/25/18 10/25/18 History magnesium oxide 400 mg PO QID 10/25/18 10/25/18 History rvrthlgd-lle-MI-lycopen-lutein 1 tab PO QAM 10/25/18 10/25/18 History [Centrum Silver] omega 2-pyk-yoi-fish oil [Fish Oil] 1 cap PO QAM 10/25/18 10/25/18 History prazosin 2 mg PO QAM 10/25/18 10/25/18 History simvastatin 20 mg PO HS 10/25/18 10/25/18 History Patient History Medical History Anemia Asthma BPH (benign prostatic hyperplasia) Chronic silicosis Epistaxis H/O cardiac pacemaker HTN (hypertension) Surgical History H/O inguinal hernia repair History of orchiectomy Family History Other Dyslipidemia HTN (hypertension) Social History Current Living Situation: Alone Other Information That Helps Us Care for You: No Feels Safe at Home: Yes Safety Concerns: Feels Safe At This Time Smoking Status: Never smoker Hx Alcohol Use: No (not for many years) Hx Substance Use: No Beliefs That Will Affect Care: None Communication Ability: Effective Physical Exam 2 Vital Signs (Past 24 Hours): Last Vital Signs Temp 36.5 C 10/26/18 15:14 Pulse 70 10/26/18 15:14 Resp 19 10/26/18 15:14 BP 115/56 L 10/26/18 15:14 Pulse Ox 98 10/26/18 15:14 Constitutional: WD/WN, vitals as above Eyes: PERRL, conjunctivae normal, anicteric sclerae ENMT: Nose: + nasal mucous membrane abnormality (rhino rocket in left nostril , no bleeding) Neck: trachea midline, no thyromegaly Respiratory: normal respiratory effort, lungs clear to auscultation
--- NOTE | 2018-10-29 06:26 | Discharge Summary ---
Date of Service date of admission - October 25, 2018 date of discharge - October 26, 2018 Admission HPI Per Admitting Provider 83 yo male with history of HTN, pacemaker, BPH who presents with severe nosebleed from left nostril. The patient says he was sitting at home when suddenly he started to bleed from left nostril. It started as a trickle but quickly picked up pace. His entire shirt was covered in blood by the time he arrived at the ED. He said that he did not have cold symptoms or sinus congestion, he denied picking his nose, the bleeding started spontaneously. He said that 30 years ago he had a spontaneous nosebleed that was cauterized by ENT in [place]. He has not had any bleeding since. No pain in his nose or sinuses. He takes aspirin, no other blood thinners. Dr. Guzman in the ED was able to stop the bleeding with nasal packing. He discussed the patient's case with Dr. Weinstein with ENT. The patient was momentarily hypotensive with BP 80's systolic, given one liter of NSS and pressures normalized quickly. Hb 10.2, unsure of baseline due to lack of prior records. Patient has hypertension and a history of pacemaker implantation many years ago by Dr. Vargas in [facility]. His other surgical history is for right inguinal hernia repair and orchiectomy two years ago at [facility]. He carries a diagnosis of Silicosis due to working at the [employer] for 45 years. He breaths well without oxygen. No significant family history, no bleeding disorders to his knowledge. Principal Diagnosis epistaxis s/p nasal packing application Discharge Exam Constitutional well developed and well nourished; no acute distress ENMT nasal packing in place, left nostril; hallitosis due to old blood Respiratory normal respiratory effort, lungs clear to auscultation Cardiovascular Rate/Rhythm: regular rate and regular rhythm Heart Sounds: normal S1, normal S2 and + murmur (1/6 LLSB) Vessels: posterior tibial pulses present and dorsalis pedis pulses present; no JVD Gastrointestinal (Abdomen) normal bowel sounds, soft, nontender, no hepatosplenomegaly Psychiatric A+Ox3, euthymic affect Discharge Data Allergies Allergy/AdvReac Type Severity Reaction Status Date / Time No Known Allergies Allergy Unverified 10/25/18 12:26 Consultations ENT - Brandy Weinstein MD Procedures Performed echocardiogram - * EF 50-55% * moderate LVH, asymmetric * focal thickening of basal septum without LV outflow tract obstruction * apical wall motion abnormality may reflect pacemaker activation Hospital Course (1) Epistaxis: spontaneous onset, no trauma. left nostril. s/p nasal packing in the ER at presentation. aspirin was held during the stay and patient advised to remain off of it post- discharge. PT, PTT, INR, and platelets were all normal during the stay. seen by Dr. Weinstein, ENT, and outpatient follow-up in 2-3 days recommended for removal of the packing. (2) Anemia: acute blood loss from epistaxis. discharge hemoglobin was 11. (3) Hypotension: Transient in the ER upon presentation when he was bleeding. s/p fluids with resolution of the low BP in the ER. He was also orthostatic briefly while on the telemetry unit and additional fluid was given with resolution. We did recommend that he HOLD his HCTZ and lisinopril at discharge until he saw his PCP after discharge. (4) HTN (hypertension): Lisinopril and HCTZ held at discharge. (5) Asthma: no issues while hospitalized. (6) Chronic silicosis: due to working in [employer] not on home oxygen stable (7) BPH (benign prostatic hyperplasia): continue home meds (8) H/O cardiac pacemaker: Echocardiogram was obtained during his brief admission. There was an apical wall motion abnormality. See full echo report above. He follows with Dr. Hai Tai in [place] and close follow-up with him recommended for this echo finding. Total Time Total Time Spent Total Time Spent (In Minutes): 35 Total Time Includes: Examination of the Patient, Discharge Planning and Medication Reconciliation Discharge Plan Discharge Items Patient Disposition: Home - Self-Care Reason For Visit: nosebleed Discharge Diagnosis: nosebleed with placement of packing to left nostril; low blood pressure likely due to nosebleed - resolved Discharge Goals: Diagnostic testing, Improve disease control and Therapeutic intervention Activity: Resume your previous activity Non-emergency contact: Primary Care Provider and Specialist Call non-emergency contact if: you have any medication questions, your symptoms worsen and your temperature is above 100.5 Follow-up/Referrals: Hai Tai [Other] (please see Dr. Tai, cardiology in [place], within 1 week; I will send him the results of your echocardiogram. ) Brandy Weinstein MD [Surgeon] - (please call 10/28/18, to Dr. Weinstein's office; he will want to see you very early this week to remove the packing in your nose) Sofia Coronado MD [Primary Care Provider] - (Please follow up with Dr. Coronado within 3-4 days to have your blood pressure repeated and for hospital follow-up *The office number is [phone].) Diet: Carb Consistent or DM2 Addtl Provider Instructions: From Damion Augustine - Hospitalist - You presented with a severe nosebleed from your left nostril. The emergency room physician placed nasal packing in the nose with resolution of the nosebleed. While in the emergency department you were noted to have low blood pressure. You were admitted for observation. You had no further nasal bleeding. Telemetry (heart monitoring) showed normal pacing of your heart from your pacemaker. You had evidence of very mild anemia. Anemia is when your blood count is low. This was due to the nosebleed. Your hemoglobin on 10/26 was 11. We checked an echocardiogram of your heart since you have a soft heart murmur. Overall the echocardiogram was fairly normal. I do want you to follow-up with Dr. Tai, cardiology in [place], within 1 week. I will send him a copy of the echocardiogram results. Your blood pressure at times was low. You take several medications that can affect your blood pressure including prazosin, lisinopril, and hydrochlorothiazide. We have STOPPED your lisinopril and hydrochlorothiazide for now. Please continue the prazosin (this treats your prostate AND blood pressure). At this time we recommend - 1. call Dr. Weinstein, ENT, first thing on Sunday10/28/18. He is going to see you in the clinic either that day or on Sunday. The packing will be removed during that visit. 2. do NOT remove the nasal packing. 3. use saline spray up the right nostril as much as you need to in order to keep that nostril clear and to assist your breathing. 4. STOP your lisinopril. 5. STOP your hydrochlorothiazide. 6. HOLD your aspirin. Do not take izwj-cdz-dacgonb motrin, ibuprofen, etc. Tylenol IS ok for any discomfort or pain. Follow-up - * see Dr. Coronado THIS WEEK * see Dr. Tai, if possible, within 1 week * see Dr. Weinstein - ENT - early this week as noted above Return to [facility] if - * you experience recurrent nosebleeding * you feel faint, dizzy, lightheaded, etc * you have fever over 100.5 degrees * you have worsening shortness of breath * any other concerns Prescriptions: New sodium chloride [Saline Nasal] 0.65 % aerosol,spray 2 sprays INTNAS Q3H PRN (Reason: dry nasal passages - use in right nostril only ) Qty: 30 RF: 0 metformin 1,000 mg tablet 1,000 mg PO BID Qty: 60 RF: 0 Continue albuterol sulfate 2.5 mg /3 mL (0.083 %) solution for nebulization 2.5 mg Inhalation Q6 RF: 0 simvastatin 20 mg Tablet 20 mg PO HS RF: 0 albuterol sulfate [Ventolin HFA] 90 mcg/actuation Hfa Aerosol Inhaler 2 puff INHALATION Q6H PRN (Reason: Shortness Of Breath Or Wheezing) RF: 0 cholecalciferol (vitamin D3) [Vitamin D3] 1,000 unit Capsule 1,000 unit PO QAM RF: 0 qpopulrr-jqn-YE-lycopen-lutein [Centrum Silver] 0.4-300-250 mg-mcg-mcg Tablet 1 tab PO QAM RF: 0 budesonide-formoterol [Symbicort] 160-4.5 mcg/actuation Hfa Aerosol Inhaler 2 puff INHALATION BID RF: 0 omega 6-flp-faq-fish oil [Fish Oil] 1,000 mg (120 mg-180 mg) Capsule 1 cap PO QAM RF: 0 prazosin 2 mg Capsule 2 mg PO QAM RF: 0 garlic 1,000 mg Capsule 2,000 mg PO QAM RF: 0 finasteride 5 mg PO HS Qty: 30 RF: 2 Changed magnesium oxide 400 mg magnesium Tablet 400 mg PO BID Qty: 60 RF: 0 Discontinued aspirin 81 mg Tablet,Chewable 81 mg PO QAM RF: 0 lisinopril 5 mg Tablet 5 mg PO QAM RF: 0 hydrochlorothiazide 25 mg Tablet 25 mg PO QAM RF: 0 Stand-Alone Forms: My [place] [facility] Discharge Orders: Discharge Order (Routine); Ordered 10/26/18 Ordered By: Damion Augustine Admission Data Admit Date/Time: 10/25/18 14:56 Attending Provider: Damion Augustine Admit Provider: Eliseo Lindo Primary Care Provider: Sofia Coronado Other Providers: Brandy Weinstein ; Eliseo Lindo Service: Telemetry Other Interventions: Discharge Summary Assessment (RN) Last Done: 10/26/18 18:13 Pending Studies at Discharge: No Studies:: echocardiogram DC Date/Time DO NOT enter until pt leaves facility: 10/26/18 19:13
== END 2018-10-26 19:13 | disposition home or self-care (01) | DRG 151 ==
LOC: ED 10:52 → SUATTDRO 14:56 → 2S 14:56

== ENCOUNTER 2019-09-07 18:18 | Inpatient (IN) ==
--- OUTSIDE RECORDS SUMMARY | 2019-09-07 18:21 | External Medical Summary | Continuity of Care Document ---
:1935 Author Name Dandre Amador Address Unavailable Unavailable , Care Team Providers Name Role Phone Kelly Womack PA-C Unavailable [email or web address] Maria Esther MORALES Unavailable Unavailable Unavailable Unavailable Unavailable Assessments Assessed Problems:SilicosisMultiple pulmonary nodulesShortness of breath Problems Multiple pulmonary nodules (793.19) (R91.8) Shortness of breath (786.05) (R06.02) Silicosis (502) (J62.8) Diabetes mellitus (250.00) (E11.9) Dyspnea (786.09) (R06.00) Hyperlipidemia (272.4) (E78.5) Hypertension (401.9) (I10) Allergies and Adverse Reactions No Known Drug Allergies (Allergy) Medications hydroCHLOROthiazide 25 MG Oral Tablet; TAKE 1 TABLET DAILY. Refills: 0 Lisinopril 5 MG Oral Tablet; TAKE 1 TABLET DAILY. Refills: 0 Albuterol AERS Refills: 0 Garlic 1000 MG Oral Capsule; TAKE 1 CAPSULE Daily Refills: 0 Vitamin D 1000 UNIT TABS; TAKE 1 TABLET DAILY. Refills: 0 Aspirin 81 MG TABS; TAKE 1 TABLET DAILY. Refills: 0 Simvastatin 20 MG Oral Tablet; take 1/2 tablet daily Refills: 0 Prazosin HCl - 2 MG Oral Capsule; TAKE 1 CAPSULE Daily Refills: 0 Multi-Vitamin Oral Tablet Refills: 0 metFORMIN HCl - 1000 MG Oral Tablet; TAKE 1 TABLET TWICE PHILIP LY. Refills: 0 Magnesium Oxide 420 MG Oral Tablet; Take 1 tablet daily Refills: 0 Symbicort 80-4.5 MCG/ACT Inhalation Aero larissa; INHALE 2 PUFFS TWICE DAILY. RINSE MOUTH AFTER USE. MONSE Womack Start: 11-Jan-2017 Quantity: 1 Refills: 11 Procedures History of Hernia Repair Status: Complet ed History of Surgery Testis Status: Comple van History of Pacemaker Permanent Placement Status: Completed Immunizations Immunizations not documented Family History Unknown Family Member Family history of coronary artery disease Status: Active Comments: Family History (V17.3) (Z82.49) Social History - Smoking Status Never smoker Interventions Medication ChangesSymbicort 80-4.5 MCG/ACT Inhalation Aerosol - Start Discussion/SummaryPatient is an 81 y.o. male who follows with Dr. 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 He presented on 12/28/16 to f/u from an acute visit on 12/07/16 when he presented c/o SOB pronounced w/exertion and when bending forward x6-8 weeks and was prescribed a prednisone taper. His symptoms improved but did not completely resolve. On 12/28/16 I prescribed Dulera 100/5 mcgs, 2 puffs b.i.d. and a second tapering course of prednisone. I also recommended he continue albuterol p.r.n. and try a loratadine daily. His symptoms have improved. [facility] need [facility] to Symbicort. Prescription faxed there today. I recommended he continue the Symbicort. He should also continue his Claritin through the summer months. Follow-up in our office it is p.r.n.. Plan of Treatment Planned Observations Planned Goals not documented Results No Known Results Results not documented Encounters Appointment; Blanka Womack PA-C 11-Jan-2017 13:00 Encounter Diagnosis: Problem not documented
--- OUTSIDE RECORDS SUMMARY | 2019-09-07 18:22 | External Medical Summary | Continuity of Care Document ---
:1935 Author Name Dandre Amador Address Unavailable Unavailable , Care Team Providers Name Role Phone Kelly Womack PA-C Unavailable [email or web address] Maria Esther MORALES Unavailable Unavailable Unavailable Unavailable Unavailable Assessments Assessed Problems:SilicosisMultiple pulmonary nodulesShortness of breath Problems Dyspnea (786.09) (R06.00) Hypertension (401.9) (I10) Hyperlipidemia (272.4) (E78.5) Diabetes mellitus (250.00) (E11.9) Silicosis (502) (J62.8) Shortness of breath (786.05) (R06.02) Multiple pulmonary nodules (793.19) (R91.8) Allergies and Adverse Reactions No Known Drug Allergies (Allergy) Medications Albuterol AERS Refills: 0 Magnesium Oxide 420 MG Oral Tablet; Take 1 tablet daily Refills: 0 metFORMIN HCl - 1000 MG Oral Tablet; TAKE 1 TABLET TWICE PHILIP LY. Refills: 0 Multi-Vitamin Oral Tablet Refills: 0 Prazosin HCl - 2 MG Oral Capsule; TAKE 1 CAPSULE Daily Refills: 0 Simvastatin 20 MG Oral Tablet; take 1/2 tablet daily Refills: 0 Aspirin 81 MG TABS; TAKE 1 TABLET DAILY. Refills: 0 Vitamin D 1000 UNIT TABS; TAKE 1 TABLET DAILY. Refills: 0 Garlic 1000 MG Oral Capsule; TAKE 1 CAPSULE Daily Refills: 0 Lisinopril 5 MG Oral Tablet; TAKE 1 TABLET DAILY. Refills: 0 hydroCHLOROthiazide 25 MG Oral Tablet; TAKE 1 TABLET DAILY. Refills: 0 Symbicort 80-4.5 MCG/ACT Inhalation Aero [...]
[2019-09-07] MEDS ORDERED: ALBUT/IPRATROP 3MG/0.5MG NEB 3 ML VIAL NEB STA (18:39)
--- NOTE | 2019-09-07 18:57 | XRay Report ---
XR chest 1V portable CLINICAL HISTORY: sob dyspnea COMPARISON STUDY: 12/07/2016 FINDINGS: Moderate cardiomegaly. This is slightly increased in the prior exam. Moderate increase in p ulmonary vasculature. Masslike changes of the right midlung as well as left hilar fullness appears si milar. There is a permanent bipolar cardiac pacemaker. IMPRESSION: Chronic pleural and parenchymal change. Developing components of congestive heart failur e. ACT 112: Negative or not required by law. The above report was generated using voice recognition software. It may contain grammatical, syntax or spelling errors. Electronically signed by: Baljeet Myers M.D. 09/07/2019 6:56 PM
[2019-09-07 19:10] LABS: Basophils # (auto) 0.01 K/uL (0-0.2); Basophils % (auto) 0.1 %; Eosinophils # (auto) 0.02 K/uL (0-0.5); Eosinophils % (auto) 0.3 %; Hematocrit (blood only) 39.8 % (42-52); Hemoglobin 13.4 g/dL (14.0-18.0); Immature Granulocytes # (auto) 0.02 K/uL (0.00-0.02); Immature Granulocytes % (auto) 0.3 %; Lymphocytes # (auto) 0.51 K/uL (1.2-3.4); Lymphocytes % (auto) 6.8 %; Mean Corpuscular Hemoglobin 29.8 pg (25-34); Mean Corpuscular Hgb Conc 33.7 g/dL (32-36); Mean Corpuscular Volume 88.4 fL (80-100); Mean Platelet Volume 10.2 fL (7.4-10.4); Monocytes # (auto) 0.34 K/uL (0.11-0.59); Monocytes % (auto) 4.5 %; Neutrophils # (auto) 6.65 K/uL (1.4-6.5); Platelet Count 150 K/uL (130-400); RDW Coefficient of Variation 14.8 % (11.5-14.5); RDW Standard Deviation 47.9 fL (36.4-46.3); White Blood Count 7.55 K/uL (4.8-10.8)
[2019-09-07 19:27] LABS: Alanine Aminotransferase 32 U/L (12-78); Albumin Level 3.5 gm/dl (3.4-5.0); Aspartate Aminotransferase 20 U/L (15-37); Blood Urea Nitrogen 26 mg/dl (7-18); Calcium 9.3 mg/dl (8.5-10.1); Carbon Dioxide 28 mmol/L (21-32); Chloride 103 mmol/L (98-107); Creatinine Clr Calc Pharmacy 36.8 ml/min; Est GFR (African American) 50.6; Est GFR (Non-African American) 43.7; Glucose 198 mg/dl (70-99); Magnesium 1.7 mg/dl (1.8-2.4); Potassium 4.1 mmol/L (3.5-5.1); Sodium 138 mmol/L (136-145)
[2019-09-07 19:32] LABS: Alkaline Phosphatase 54 U/L (45-117); Bilirubin,Total 0.8 mg/dl (0.2-1); Globulin 3.6 gm/dl (2.5-4.0); NT Pro B Type Natriuretic Pept 1446 pg/ml (0-1800); Total Protein 7.1 gm/dl (6.4-8.2); Troponin I < 0.015 ng/ml (0-0.045)
[2019-09-07] MEDS ORDERED: MAGNESIUM SULFATE / D5W 1 GM/100 ML BAG IV ONE (19:33)
[2019-09-07 19:38] LABS: Influenza A virus by PCR Neg for Influ A (Neg); Influenza B virus by PCR Neg for Influ B (Neg)
[2019-09-07] MEDS ORDERED: OPTIRAY 320 125ml IV PRN (20:07)
--- NOTE | 2019-09-07 20:27 | CT Scan Report ---
CT angio chest PE protocol CT DOSE: 480.04 mGy.cm HISTORY: Chest pain PE, known right mass TECHNIQUE: Multiaxial CT images of the chest were performed following the intravenous administration of contrast to evaluate the pulmonary arteries. Maximal intensity projection images were also obtaine d. A dose lowering technique was utilized adhering to the principles of ALARA. COMPARISON STUDY: 12/11/2016 FINDINGS: Interval development of small bilateral pleural effusions. Slightly progressive right perih ilar mass. Minimal development of masslike process involving the left upper lung. Parenchymal nodularity throughout both hemithoraces slightly progressive compared to the prior study. Atherosclerotic change thoracic aorta considered unchanged. Progressive luminal narrowing components of the right lower lobe bronchus. Similar findings are seen involving the left upper lobe bronchus. Incomplete filling of the right main pulmonary artery primarily secondary to what appears to be vascu lar compromise due to the mass process. No well-defined acute filling defect is present within these limitations. IMPRESSION: 1. Mildly progressive right perihilar mass with interval development of a smaller left upper lobe par enchymal mass. 2. Similar progressive perihilar adenopathy with evidence for extrinsic compression upon the central pulmonary vasculature. 3. Interval small bilateral pleural effusions. 4. The pulmonary vasculature within the limitations of a lack of recent imaging shows no major pulmon fifi embolus. 5. Mildly progressive narrowing of central bronchi of the right upper, right lower lobe, as well as l eft upper lobe. ACT 112: Negative or not required by law. The above report was generated using voice recognition software. It may contain grammatical, syntax or spelling errors. Electronically signed by: Baljeet Myers M.D. 09/07/2019 8:26 PM
[2019-09-07] MEDS: ALBUT/IPRATROP 3MG/0.5MG NEB 3 ML VIAL NEB STA ×2 (20:46→22:25)
[2019-09-07] MEDS ORDERED: methylPREDNISolone 125 MG/2 ML VIAL IV STA (20:47)
[2019-09-07] MEDS ORDERED: HydrALAZINE HCL 20 MG/ML VIAL IV PRN (23:21)
[2019-09-07] MEDS ORDERED: cefTRIAXone SODIUM 1000MG/50ML D5W IV ONE (23:32)
[2019-09-07] MEDS: cefTRIAXone SODIUM 1,000 MG in DEXTROSE 5% 50 ML IV SCH (23:36)
--- NOTE | 2019-09-07 23:50 | History & Physical Report ---
Date of Service September 07, 2019 Assessment & Plan (1) Acute and chronic respiratory failure with hypoxia: Admit PCU Continue BiPAP overnight Pox on presentation was 78% on RA with RR 28. Has right hilar mass which was present in 12/18 but somewhat larger now. New Left upper lobe mass and progressive hilar adenopathy. He tells me that he has not seen a dog catcher in years and was being followed for silicosis and was discharge. Pulmonology consult. DVT prophylaxis = SCDs and sq Heparin. (2) COPD exacerbation: Scheduled duonebs q6 hr. prn albuterol nebs Solumedrol 40mg IV Q6 hr. Rocephin and azithromycin to cover common resp offenders. (3) Chronic silicosis: Had worked in [employer] for 45 years. Continue Symbicort. (4) Diabetes mellitus, type 2: Hold Metformin as he had dye load. coverage with sliding scale insulin expect will need long acting insulin as he is on steroids I will start Lantus at 10 units tonight and can adjust as needed. (5) Hyperlipidemia: continue simvastatin (6) HTN (hypertension): Continue HCTZ and Lasix. (7) BPH (benign prostatic hyperplasia): Continue prazosin. History of Present Illness 84 y/o male presented to the ED with worsening SOB over past 2-3 days with yellow productive cough. No F/C, chest pain, N/V/D, weight loss, or change in medications. He was found to be hypoxic with POX 78% on RA and was placed on BiPAP. His oxygenation has been stable since. He reports history of silicosis from working in [employer] for 45yrs and has asthma. He has not required the use of home oxygen. He reports following with a dog catcher years ago for silicosis, but was discharge in that he was doing well. He has a pacemaker which was placed in 2013. Primary Care Provider: Sofia Coronado MD Allergies Allergy/AdvReac Type Severity Reaction Status Date / Time No Known Allergies Allergy Verified 09/07/19 20:01 Home Medications Home Medications Medication Instructions Recorded Confirmed Type Centrum Silver 1 tab PO QAM 10/25/18 09/07/19 History Symbicort 2 puff INHALATION BID 10/25/18 09/07/19 History albuterol sulfate 2.5 mg INHALATION Q6 10/25/18 09/07/19 History albuterol sulfate [Ventolin HFA] 2 puff INHALATION Q6H PRN 10/25/18 09/07/19 History cholecalciferol (vitamin D3) 1,000 unit PO QAM 10/25/18 09/07/19 History [Vitamin D3] omega 2-ylq-wgb-fish oil [Fish Oil] 1 cap PO QAM 10/25/18 09/07/19 History prazosin 2 mg PO HS 10/25/18 09/07/19 History metformin 1,000 mg PO BID #60 tab 10/26/18 09/07/19 Rx hydrochlorothiazide 0 mg PO QAM 10/29/18 09/07/19 History aspirin 81 mg PO DAILY 09/07/19 09/07/19 History furosemide 40 mg PO DAILY 09/07/19 09/07/19 History magnesium oxide 420 mg PO BID 09/07/19 09/07/19 History simvastatin 20 mg PO HS 09/07/19 09/07/19 History Past Med/Surg History Medical History Anemia Asthma BPH (benign prostatic hyperplasia) Chronic silicosis Diabetes mellitus, type 2 NIDDM Epistaxis GI bleed H/O H/O cardiac pacemaker 09/01/2014, FOLLOWS WITH DR ARRIAGA ([place]). LAST CHECKED JUNE 24, 2018. 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: No Beliefs That Will Affect Care: None Current Living Situation: Alone Feels Safe at Home: Yes Smoking Status: Never smoker Second Hand Exposure: No ; Hx Alcohol Use: No (not for many years) Hx Substance Use: No Review of Systems 2 Review of Systems: Constitutional- no fever; no weight loss Eyes- no acute visual changes ENT- no sinus drainage; no pharyngitis Pulmonary- As in HPI Cardiac- no chest pain, no palpitations, no orthopnea, + chronic swelling in ankles but no change GI- no nausea, no vomiting, no diarrhea, no melena, no hematochezia - no dysuria, no hematuria Musculoskeletal- no arthralgias, no myalgias Derm- no rashes, no new skin lesions. Hematologic- no unusual bruising, no unusual bleeding Lymphatics- no adenopathy Endocrine- no polyuria or polydipsia; no heat or cold intolerance Neuro- no headaches, no focal neurologic symptoms Psych- no anxiety, no depression Physical Exam Physical Exam: General- adult male with BiPAP in place, NAD. Head- atraumatic Eyes- PERRL, EOMI, anicteric ENT- oropharynx clear Neck- supple, no JVD, no adenopathy, no thyromegaly. Lungs- Minimal expiratory wheezing b/l. Few scattered rhonchi. Heart- Reg (paced on tele monitor) No M/R/G Abdomen- normal bowel sounds, soft, nontender, non-distended. 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 Skin- warm & dry Results & Data Vital Signs (Past 12 Hours) Vital Signs Temp Pulse Pulse Resp BP BP Pulse Ox 09/07/19 23:00 72 19 156/80 H 100 09/07/19 22:30 60 19 148/81 H 100 09/07/19 22:26 76 22 100 09/07/19 22:00 61 20 168/95 H 99 09/07/19 21:30 63 18 182/103 H 100 09/07/19 21:20 67 19 179/108 H 100 09/07/19 21:12 69 24 100 09/07/19 21:07 76 22 100 09/07/19 21:03 86 22 190/105 H 100 09/07/19 21:00 95 H 23 212/108 H 100 09/07/19 20:32 95 09/07/19 20:30 73 27 H 197/85 H 90 09/07/19 20:26 78 L 09/07/19 20:00 60 23 171/83 H 99 09/07/19 19:32 60 19 163/80 H 99 09/07/19 18:56 99 H 24 100 09/07/19 18:44 93 09/07/19 18:22 36.5 C 73 28 H 205/94 H 95 Laboratory Results Laboratory Results WBC 7.55 K/uL (4.8-10.8) 09/07/19 18:48 RBC 4.50 M/uL (4.7-6.1) L 09/07/19 18:48 Hgb 13.4 g/dL (14.0-18.0) L 09/07/19 18:48 Hct 39.8 % (42-52) L 09/07/19 18:48 MCV 88.4 fL (80-100) 09/07/19 18:48 MCH 29.8 pg (25-34) 09/07/19 18:48 MCHC 33.7 g/dL (32-36) 09/07/19 18:48 RDW Std Deviation 47.9 fL (36.4-46.3) H 09/07/19 18:48 RDW Coeff of Maria L 14.8 % (11.5-14.5) H 09/07/19 18:48 Plt Count 150 K/uL (130-400) 09/07/19 18:48 MPV 10.2 fL (7.4-10.4) 09/07/19 18:48 Immature Gran % (Auto) 0.3 % 09/07/19 18:48 Neut % (Auto) 88.0 % 09/07/19 18:48 Lymph % (Auto) 6.8 % 09/07/19 18:48 Collin % (Auto) 4.5 % 09/07/19 18:48 Eos % (Auto) 0.3 % 09/07/19 18:48 Baso % (Auto) 0.1 % 09/07/19 18:48 Immature Gran # (Auto) 0.02 K/uL (0.00-0.02) 09/07/19 18:48 Neut # (Auto) 6.65 K/uL (1.4-6.5) H 09/07/19 18:48 Lymph # (Auto) 0.51 K/uL (1.2-3.4) L 09/07/19 18:48 Collin # (Auto) 0.34 K/uL (0.11-0.59) 09/07/19 18:48 Eos # (Auto) 0.02 K/uL (0-0.5) 09/07/19 18:48 Baso # (Auto) 0.01 K/uL (0-0.2) 09/07/19 18:48 Sodium 138 mmol/L (136-145) 09/07/19 18:48 Potassium 4.1 mmol/L (3.5-5.1) 09/07/19 18:48 Chloride 103 mmol/L (98-107) 09/07/19 18:48 Carbon Dioxide 28 mmol/L (21-32) 09/07/19 18:48 Anion Gap 7.0 (3-11) 09/07/19 18:48 BUN 26 mg/dl (7-18) H 09/07/19 18:48 Creatinine 1.44 mg/dl (0.6-1.4) H 09/07/19 18:48 Est Cr Clr Drug Dosing 36.8 ml/min 09/07/19 18:48 Est GFR ( Amer) 50.6 09/07/19 18:48 Est GFR (Non-Af Amer) 43.7 09/07/19 18:48 BUN/Creatinine Ratio 18.0 (10-20) 09/07/19 18:48 Glucose 198 mg/dl (70-99) H 09/07/19 18:48 Calcium 9.3 mg/dl (8.5-10.1) 09/07/19 18:48 Magnesium 1.7 mg/dl (1.8-2.4) L 09/07/19 18:48 Total Bilirubin 0.8 mg/dl (0.2-1) 09/07/19 18:48 AST 20 U/L (15-37) 09/07/19 18:48 ALT 32 U/L (12-78) 09/07/19 18:48 Alkaline Phosphatase 54 U/L (45-117) 09/07/19 18:48 Troponin I < 0.015 ng/ml (0-0.045) 09/07/19 18:48 NT-Pro-B Natriuret Pep 1446 pg/ml (0-1800) 09/07/19 18:48 Total Protein 7.1 gm/dl (6.4-8.2) 09/07/19 18:48 Albumin 3.5 gm/dl (3.4-5.0) 09/07/19 18:48 Globulin 3.6 gm/dl (2.5-4.0) 09/07/19 18:48 Albumin/Globulin Ratio 1.0 (0.9-2) 09/07/19 18:48 Influenza Type A (PCR) Neg for Influ A (Neg) 09/07/19 18:48 Influenza Type B (PCR) Neg for Influ B (Neg) 09/07/19 18:48 Diagnostic Findings [place], [place] [phone] CT Scan Report Patient: LIV SCOTT Date: 09/07/19 MR#: [id number] Acct ID:[id number]: Date: [address] [place] [address] Zip: [place] [address] Age: 84Location: ED Sex: M Room/Bed: Att Phy:Diagnosis: SOB, DOESNT FEEL RIGHT, HAS PACEMAKER Gaby Phy: Sofia Coronadoervice Date: 09/07/19 Fam Phy:Interpreting Phy: Baljeet Myers MD Admit Phy: Ordering Phy: Susanne Reed DO cc: ~ CT angio chest PE protocol CT DOSE: 480.04 mGy.cm HISTORY: Chest pain PE, known right mass TECHNIQUE: Multiaxial CT images of the chest were performed following the intravenous administration of contrast to evaluate the pulmonary arteries. Maximal intensity projection images were also obtained. A dose lowering technique was utilized adhering to the principles of ALARA. COMPARISON STUDY: 12/11/2016 FINDINGS: Interval development of small bilateral pleural effusions. Slightly progressive right perihilar mass. Minimal development of masslike process involving the left upper lung. Parenchymal nodularity throughout both hemithoraces slightly progressive compared to the prior study. Atherosclerotic change thoracic aorta considered unchanged. Progressive luminal narrowing components of the right lower lobe bronchus. Similar findings are seen involving the left upper lobe bronchus. Incomplete filling of the right main pulmonary artery primarily secondary to what appears to be vascular compromise due to the mass process. No well-defined acute filling defect is present within these limitations. IMPRESSION: 1. Mildly progressive right perihilar mass with interval development of a smaller left upper lobe parenchymal mass. 2. Similar progressive perihilar adenopathy with evidence for extrinsic compression upon the central pulmonary vasculature. 3. Interval small bilateral pleural effusions. 4. The pulmonary vasculature within the limitations of a lack of recent imaging shows no major pulmonary embolus. 5. Mildly progressive narrowing of central bronchi of the right upper, right lower lobe, as well as left upper lobe. ACT 112: Negative or not required by law. The above report was generated using voice recognition software. It may contain grammatical, syntax or spelling errors. Electronically signed by: Baljeet Myers M.D. 09/07/2019 8:26 PM Dictated: 09/07/192018 Transcribed: 09/07/192018 Code Status & VTE Plan VTE Prophylaxis Plan VTE Prophylaxis will be ordered: Yes PG Care Time/CCT Total # of Minutes Spent Total Time Spent: 65 Total Time Spent with Patient: Total time spent is greater than 50% in coordination of care (as documented) at patient's floor/unit and/or counseling patient:
[2019-09-08] MEDS ORDERED: DEXTROSE 50% 50 ML SYRINGE IV PRN (00:14)
[2019-09-08] MEDS ORDERED: GLUCOSE 10 TABS/TUBE PO PRN (00:14)
[2019-09-08] MEDS ORDERED: CARBOHYDRATES FOR HYPOGLYCEMIA PO PRN (00:14)
[2019-09-08] MEDS ORDERED: ALBUTEROL 0.083% NEBU SOLN 3 ML VIAL NEB PRN (00:14)
[2019-09-08] MEDS ORDERED: ACETAMINOPHEN 325 MG TAB PO PRN (00:14)
[2019-09-08] MEDS ORDERED: ONDANSETRON INJ 2 MG/ML 2 ML VIAL IV PRN (00:14)
[2019-09-08] MEDS ORDERED: GLUCOSE 40% GEL 15 GM TUBE PO PRN (00:14)
[2019-09-08] MEDS ORDERED: GLUCAGON FOR INJ 1 MG VIAL SQ PRN (00:14)
[2019-09-08] MEDS: AZITHROMYCIN 500 MG in DEXTROSE 5% 250 ML IV SCH (00:16)
[2019-09-08] MEDS: ALBUT/IPRATROP 3MG/0.5MG NEB 3 ML VIAL NEB SCH ×4 (00:39→18:57)
[2019-09-08] MEDS ORDERED: MAGNESIUM SULFATE / D5W 1 GM/100 ML BAG IV ONE (01:00)
--- NOTE | 2019-09-08 01:53 | Emergency Department Note ---
Entered by Jessica Dorsey acting as a scribe for Susanne Reed DO History of Present Illness General Chief complaint: Shortness of Breath/Dyspnea Stated complaint: SOB, DOESNT FEEL RIGHT, HAS PACEMAKER Time Seen by Provider: 09/07/19 18:25 Source: patient and family (son) History of Present Illness Onset (ago): hour(s) (chronic but worsened today) Location: chest (SOB) Pain Consistency: + constant Relieved By: + movement (ambulating ) and + other (sitting up ) Exacerbated By: + rest (laying flat ) Associated symptoms: + denies other symptoms (hemoptysis, lightheadedness, abdominal pain), + cough (chronic, now with yellow sputum ), + loss of appetite (baseline, no new changes), + shortness of breath and + other (constant dizziness at baseline); no chest pain, no fever/chills and no nausea/vomiting The patient is an 84 year old male with a history of SOB and hypotension who presents to the Emergency Room with complaints of shortness of breath/dyspnea. 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 Additionally, the patient's son states that the patient has also been experiencing chronic bilateral leg swelling for about 1-2 years with no new changes from baseline. The patient takes a diuretic for this. He also has a chronic cough and today he presents with worsened SOB associated with coughing up yellow sputum. He states that sitting up and ambulating improves his SOB. However, ED nurses report that the patient was winded when walking into triage today. His SOB is exacerbated when laying flat. His son also includes that the patient normally has a decreased appetite at baseline with no new changes. Additionally, the patient reports constant dizziness at baseline. Of note, he did receive his flu shot this year and had the pneumonia shot. He also has not had any recent sickness exposure. The patient also takes a baby ASP daily and recently began taking a new iron pill (no other change in meds). He was never a smoker and does not have a prior history of asthma. The last time he was seen by his double head machine operator was about 1 month ago for a routine check up. He denies hemoptysis, fever, chills, chest pain, lightheadedness, nausea, vomiting, and abdominal pain. The patient and his son offer no further concerns at this time. Home Medications Home Medications Medication Instructions Recorded Confirmed Type Centrum Silver 1 tab PO QAM 10/25/18 09/07/19 History Symbicort 2 puff INHALATION BID 10/25/18 09/07/19 History albuterol sulfate 2.5 mg INHALATION Q6 10/25/18 09/07/19 History albuterol sulfate [Ventolin HFA] 2 puff INHALATION Q6H PRN 10/25/18 09/07/19 H istory cholecalciferol (vitamin D3) 1,000 unit PO QAM 10/25/18 09/07/19 History [Vitamin D3] omega 5-[id number]-mnr-fish oil [Fish Oil] 1 cap PO QAM 10/25/18 09/07/19 History prazosin 2 mg PO HS 10/25/18 09/07/19 History metformin 1,000 mg PO BID #60 tab 10/26/18 09/07/19 Rx hydrochlorothiazide 0 mg PO QAM 10/29/18 09/07/19 History aspirin 81 mg PO DAILY 09/07/19 09/07/19 History furosemide 40 mg PO DAILY 09/07/19 09/07/19 History magnesium oxide 420 mg PO BID 09/07/19 09/07/19 History simvastatin 20 mg PO HS 09/07/19 09/07/19 History Allergies Allergy/AdvReac Type Severity Reaction Status Date / Time No Known Allergies Allergy Verified 09/07/19 20:01 Past Med/Surg History Medical History Anemia Asthma BPH (benign prostatic hyperplasia) Chronic silicosis Diabetes mellitus, type 2 NIDDM Epistaxis GI bleed H/O H/O cardiac pacemaker 09/01/2014, FOLLOWS WITH DR ARRIAGA ([facility]). LAST CHECKED JUNE 24, 2018. Hearing deficit BILATERAL AIDES HTN (hypertension) Hyperlipidemia Surgical History H/O inguinal hernia repair H/O sinus surgery ENDOCAUTERY (30 YEARS AGO) History of colonoscopy History of esophagogastroduodenoscopy (EGD) History of herniorrhaphy RIGHT & LEFT INGUINAL HERNIA REPAIR History of orchiectomy RIGHT Family History Mother Family history of diabetes mellitus Other Dyslipidemia Hypertension Social History Preferred Language: [place] Citizen Communication Ability: Effective Testing And Regulating Chief Required: No Beliefs That Will Affect Care: None Current Living Situation: Family Feels Safe at Home: Yes Smoking Status: Never smoker Second Hand Exposure: No ; Hx Alcohol Use: No Hx Substance Use: No Review of Systems See HPI for pertinent positives & negatives. and A total of 10 systems reviewed and were otherwise negative Physical Exam Vital Signs Vital Signs - 24 hr 09/07/19 18:22 09/07/19 18:39 09/07/19 18:44 Temperature 36.5 C Temperature Source Oral Pulse Rate 73 Pulse Rate [Apical] Pulse Rate from SpO2 Sensor Respiratory Rate 28 H Respiratory Effort / Characteristics Labored Labored Respiratory Depth Shallow Respiratory Pattern Tachypnea Blood Pressure 205/94 H Blood Pressure [Right Arm] Blood Pressure Mean 131 Blood Pressure Mean [Right Arm] Blood Pressure Position Sitting Blood Pressure Position [Right Arm] Pulse Oximetry 95 93 Oxygen Delivery Method Room Air Room Air Room Air Oxygen Flow Rate 95 Fraction of Inspired Oxygen Sepsis Recent Fever Within 48 Hours No Sepsis Action Taken by Nursing No Action Required Oxygen Flow Rate - Titration Pulse Oximetry Post Tiitration 09/07/19 18:56 09/07/19 19:32 09/07/19 20:00 Temperature Temperature Source Pulse Rate 60 Pulse Rate [Apical] 99 H 60 Pulse Rate from SpO2 Sensor 60 Respiratory Rate 24 19 23 Respiratory Effort / Characteristics Non-Labored Labored Short of Breath Respiratory Depth Respiratory Pattern Blood Pressure 171/83 H Blood Pressure [Right Arm] 163/80 H Blood Pressure Mean 105 Blood Pressure Mean [Right Arm] 107 Blood Pressure Position Blood Pressure Position [Right Arm] Sitting Pulse Oximetry 100 99 99 Oxygen Delivery Method Nasal Cannula Nasal Cannula Nasal Cannula Oxygen Flow Rate 2 2 2 Fraction of Inspired Oxygen Sepsis Recent Fever Within 48 Hours Sepsis Action Taken by Nursing Oxygen Flow Rate - Titration Pulse Oximetry Post Tiitration 09/07/19 20:26 09/07/19 20:30 09/07/19 20:32 Temperature Temperature Source Pulse Rate 73 Pulse Rate [Apical] Pulse Rate from SpO2 Sensor 71 Respiratory Rate 27 H Respiratory Effort / Characteristics Respiratory Depth Respiratory Pattern Blood Pressure 197/85 H Blood Pressure [Right Arm] Blood Pressure Mean 130 Blood Pressure Mean [Right Arm] Blood Pressure Position Blood Pressure Position [Right Arm] Pulse Oximetry 78 L 90 95 Oxygen Delivery Method Nasal Cannula Non-rebreather Nasal Cannula Oxygen Flow Rate 2 15 3 Fraction of Inspired Oxygen Sepsis Recent Fever Within 48 Hours Sepsis Action Taken by Nursing Oxygen Flow Rate - Titration 6 Pulse Oximetry Post Tiitration 92 09/07/19 21:00 09/07/19 21:03 09/07/19 21:07 Temperature Temperature Source Pulse Rate 95 H 86 76 Pulse Rate [Apical] Pulse Rate from SpO2 Sensor 98 H 86 Respiratory Rate 23 22 22 Respiratory Effort / Characteristics Spontaneous Accessory Muscle Use Labored Short of Breath Respiratory Depth Shallow Respiratory Pattern Tachypnea Blood Pressure 212/108 H 190/105 H Blood Pressure [Right Arm] Blood Pressure Mean 148 135 Blood Pressure Mean [Right Arm] Blood Pressure Position Blood Pressure Position [Right Arm] Pulse Oximetry 100 100 100 Oxygen Delivery Method BiPAP BiPAP Oxygen Flow Rate Fraction of Inspired Oxygen 100 Sepsis Recent Fever Within 48 Hours Sepsis Action Taken by Nursing Oxygen Flow Rate - Titration Pulse Oximetry Post Tiitration 09/07/19 21:12 09/07/19 21:20 09/07/19 21:30 Temperature Temperature Source Pulse Rate 67 63 Pulse Rate [Apical] 69 Pulse Rate from SpO2 Sensor 68 62 Respiratory Rate 24 19 18 Respiratory Effort / Characteristics Spontaneous Accessory Muscle Use Labored Short of Breath Respiratory Depth Respiratory Pattern Blood Pressure 179/108 H 182/103 H Blood Pressure [Right Arm] Blood Pressure Mean 140 126 Blood Pressure Mean [Right Arm] Blood Pressure Position Blood Pressure Position [Right Arm] Pulse Oximetry 100 100 100 Oxygen Delivery Method CPAP CPAP CPAP Oxygen Flow Rate Fraction of Inspired Oxygen 100 Sepsis Recent Fever Within 48 Hours Sepsis Action Taken by Nursing Oxygen Flow Rate - Titration Pulse Oximetry Post Tiitration 09/07/19 22:00 09/07/19 22:26 09/07/19 22:30 Temperature Temperature Source Pulse Rate 61 76 60 Pulse Rate [Apical] Pulse Rate from SpO2 Sensor 61 60 Respiratory Rate 20 22 19 Respiratory Effort / Characteristics Non-Labored Spontaneous Respiratory Depth Normal Respiratory Pattern Regular Blood Pressure 168/95 H 148/81 H Blood Pressure [Right Arm] Blood Pressure Mean 119 107 Blood Pressure Mean [Right Arm] Blood Pressure Position Blood Pressure Position [Right Arm] Pulse Oximetry 99 100 100 Oxygen Delivery Method CPAP CPAP Oxygen Flow Rate Fraction of Inspired Oxygen 100 Sepsis Recent Fever Within 48 Hours Sepsis Action Taken by Nursing Oxygen Flow Rate - Titration Pulse Oximetry Post Tiitration 09/07/19 23:00 Temperature Temperature Source Pulse Rate 72 Pulse Rate [Apical] Pulse Rate from SpO2 Sensor 60 Respiratory Rate 19 Respiratory Effort / Characteristics Respiratory Depth Respiratory Pattern Blood Pressure 156/80 H Blood Pressure [Right Arm] Blood Pressure Mean 102 Blood Pressure Mean [Right Arm] Blood Pressure Position Blood Pressure Position [Right Arm] Pulse Oximetry 100 Oxygen Delivery Method CPAP Oxygen Flow Rate Fraction of Inspired Oxygen Sepsis Recent Fever Within 48 Hours Sepsis Action Taken by Nursing Oxygen Flow Rate - Titration Pulse Oximetry Post Tiitration GENERAL: alert, well appearing, well nourished, no distress, non-toxic EYE EXAM: normal conjunctiva, PERRL and EOM's grossly intact OROPHARYNX: no exudate, no erythema, lips, buccal mucosa, and tongue normal and mucous membranes are moist NECK: supple, no nuchal rigidity, no adenopathy, non-tender LUNGS: Tachypnea. Normal chest wall mechanics. Increased work of breathing, course breath sounds bilaterally, scattered expiratory wheeze. CHEST: Left superior chest wall pacer/AICD noted. HEART: no murmurs, S1 normal and S2 normal ABDOMEN: abdomen soft, non-tender, normo-active bowel sounds, no masses, no rebound or guarding. BACK: Back is symmetrical on inspection and there is no deformity, no midline tenderness, no CVA tenderness. SKIN: no rashes and no bruising UPPER EXTREMITIES: upper extremities are grossly normal. FROM, nml pulses b/l. LOWER EXTREMITIES: No pitting edema. Chronic 3+ lymphedema. NEURO EXAM: Normal sensorium, cranial nerves II-XII grossly intact, normal speech, no gross weakness of arms, no gross weakness of legs. Course Course 1834: Past medical records reviewed. The patient was evaluated in room C05. A complete history and physical exam was performed. 1947: I checked on the patient. He states that he feels slightly improved after nebulizer treatment. He also includes that his doctor checks the mass on his lungs every 6 months. 2056: I re-checked the patient. He has increased work of breathing. Sats 81%. Nursing staff changes to a NRB at 15 L/min. Sats slowly began to improve. Bi-pap is now being initiated. 2204: I re-checked the patient. He looks much better on bi-pap with decreased work of breathing. 2256: I spoke to Dr. Noel, [facility] Hospitalist who will further evaluate the patient. Administered Medications Albuterol (Duoneb) 3 ml NEB Q6R ANNA Stop: 10/08/19 00:59 Last Admin: 09/08/19 00:39 Dose: 3 ml Documented by: [id number] Azithromycin 500 mg/ Dextrose 255 mls @ 125 mls/hr IV Q24H ANNA Stop: 09/14/19 23:14 Last Admin: 09/08/19 00:16 Dose: 125 mls/hr Documented by: [id number] Ceftriaxone Sodium 1,000 mg/ (Dextrose) 50 mls @ 100 mls/hr IV Q24H [facility]; Protocol Stop: 09/14/19 23:14 Last Infusion: 09/08/19 00:07 Dose: 0 mls/hr Documented by: [id number] Admin: 09/07/19 23:36 Dose: 100 mls/hr Documented by: [id number] Magnesium Sulfate/Dextrose (Magnesium Sulfate / D5w) 1 gm in 100 mls @ 100 mls/hr IV ONE ONE Stop: 09/08/19 01:59 Last Admin: 09/08/19 01:16 Dose: 100 mls/hr Documented by: [id number] Discontinued Medications Albuterol (Duoneb) 3 ml NEB NOW STA Stop: 09/07/19 18:40 Last Admin: 09/07/19 18:55 Dose: 3 ml Documented by: [id number] Albuterol (Duoneb) 3 ml NEB NOW STA Stop: 09/07/19 20:47 Last Admin: 09/07/19 22:25 Dose: Not Given Documented by: [id number] Admin: 09/07/19 20:46 Dose: 3 ml Documented by: [id number] Ceftriaxone Sodium (Rocephin) Confirm Administered Dose 1,000 mg IV .STK-MED ONE Stop: 09/07/19 23:33 Last Admin: 09/07/19 23:36 Dose: Not Given Documented by: [id number] Magnesium Sulfate/Dextrose (Magnesium Sulfate / D5w) 1 gm in 100 mls @ 100 mls/hr IV ONE ONE Stop: 09/07/19 20:32 Last Infusion: 09/07/19 20:58 Dose: 0 mls/hr Documented by: [id number] Admin: 09/07/19 19:36 Dose: 100 mls/hr Documented by: [id number] Ioversol (Optiray 320 125ml) 118 ml IV ONCE PRN PRN Reason: Interaction Checking Stop: 09/11/19 20:06 Last Admin: 09/07/19 20:07 Dose: 118 ml Documented by: [id number] Methylprednisolone (Solumedrol) 60 mg IV NOW STA Stop: 09/07/19 20:48 Last Admin: 09/07/19 21:01 Dose: 60 mg Documented by: [id number] Critical Care Time Critical Care Time: Yes Total Critical Care Time: 40 I have personally spent 40 minutes of critical care time in the direct management of this patient. This includes bedside care, interpretation of diagnostic studies, and testing, discussion with consultants, patient, and family members, and other required patient management activities. This 40 minutes is in excess of all separately billable procedures. Medical Decision Making Differential Diagnosis Differential diagnosis includes but is not limited to differential diagnoses includes but is not limited to pneumonia, bronchitis, COPD/Asthma exacerbation, pneumothorax, pulmonary embolism, congestive heart failure, acute coronary syndrome Medical Records Attestation: I reviewed the patient's medical records. Home Medications Current Medication List: was personally reviewed by me Laboratory Data Attestation: I reviewed the patient's lab results. Result diagrams: 09/07/19 18:48 09/07/19 18:48 Lab Results 09/07/19 09/07/19 09/07/19 Range/Units 18:48 18:48 18:48 WBC 7.55 (4.8-10.8) K/uL RBC 4.50 L (4.7-6.1) M/uL Hgb 13.4 L (14.0-18.0) g/dL Hct 39.8 L (42-52) % MCV 88.4 (80-100) fL MCH 29.8 (25-34) pg MCHC 33.7 (32-36) g/dL RDW Std Deviation 47.9 H (36.4-46.3) fL RDW Coeff of Maria L 14.8 H (11.5-14.5) % Plt Count 150 (130-400) K/uL MPV 10.2 (7.4-10.4) fL Immature Gran % (Auto) 0.3 % Neut % (Auto) 88.0 % Lymph % (Auto) 6.8 % [place] % (Auto) 4.5 % Eos % (Auto) 0.3 % Baso % (Auto) 0.1 % Immature Gran # (Auto) 0.02 (0.00-0.02) K/uL Neut # (Auto) 6.65 H (1.4-6.5) K/uL Lymph # (Auto) 0.51 L (1.2-3.4) K/uL [place] # (Auto) 0.34 (0.11-0.59) K/uL Eos # (Auto) 0.02 (0-0.5) K/uL Baso # (Auto) 0.01 (0-0.2) K/uL Sodium 138 (136-145) mmol/L Potassium 4.1 (3.5-5.1) mmol/L Chloride 103 (98-107) mmol/L Carbon Dioxide 28 (21-32) mmol/L Anion Gap 7.0 (3-11) BUN 26 H (7-18) mg/dl Creatinine 1.44 H (0.6-1.4) mg/dl Est Cr Clr Drug Dosing 36.8 ml/min Est GFR ( Amer) 50.6 Est GFR (Non-Af Amer) 43.7 BUN/Creatinine Ratio 18.0 (10-20) Glucose 198 H (70-99) mg/dl Calcium 9.3 (8.5-10.1) mg/dl Magnesium 1.7 L (1.8-2.4) mg/dl Total Bilirubin 0.8 (0.2-1) mg/dl AST 20 (15-37) U/L ALT 32 (12-78) U/L Alkaline Phosphatase 54 (45-117) U/L Troponin I < 0.015 (0-0.045) ng/ml NT-Pro-B Natriuret Pep 1446 (0-1800) pg/ml Total Protein 7.1 (6.4-8.2) gm/dl Albumin 3.5 (3.4-5.0) gm/dl Globulin 3.6 (2.5-4.0) gm/dl Albumin/Globulin Ratio 1.0 (0.9-2) Influenza Type A (PCR) Neg for Influ A (Neg) Influenza Type B (PCR) Neg for Influ B (Neg) Imaging Data Radiologist's Impression: Radiology results as stated below per my review and the radiologist's interpretation: XR chest 1V portable CLINICAL HISTORY: sob dyspnea COMPARISON STUDY: 12/07/2016 FINDINGS: Moderate cardiomegaly. This is slightly increased in the prior exam. Moderate increase in pulmonary vasculature. Masslike changes of the right midlung as well as left hilar fullness appears similar. There is a permanent bipolar cardiac pacemaker. IMPRESSION: Chronic pleural and parenchymal change. Developing components of congestive heart failure. ACT 112: Negative or not required by law. The above report was generated using voice recognition software. It may contain grammatical, syntax or spelling errors. Electronically signed by: Baljeet Myers M.D. 09/07/2019 6:[address] angio chest PE protocol CT DOSE: 480.04 mGy.cm HISTORY: Chest pain PE, known right mass TECHNIQUE: Multiaxial CT images of the chest were performed following the intravenous administration of contrast to evaluate the pulmonary arteries. Maximal intensity projection images were also obtained. A dose lowering technique was utilized adhering to the principles of ALARA. COMPARISON STUDY: 12/11/2016 FINDINGS: Interval development of small bilateral pleural effusions. Slightly progressive right perihilar mass. Minimal development of masslike process involving the left upper lung. Parenchymal nodularity throughout both hemithoraces slightly progressive compared to the prior study. Atherosclerotic change thoracic aorta considered unchanged. Progressive luminal narrowing components of the right lower lobe bronchus. Similar findings are seen involving the left upper lobe bronchus. Incomplete filling of the right main pulmonary artery primarily secondary to what appears to be vascular compromise due to the mass process. No well-defined acute filling defect is present within these limitations. IMPRESSION: 1. Mildly progressive right perihilar mass with interval development of a smaller left upper lobe parenchymal mass. 2. Similar progressive perihilar adenopathy with evidence for extrinsic compression upon the central pulmonary vasculature. 3. Interval small bilateral pleural effusions. 4. The pulmonary vasculature within the limitations of a lack of recent imaging shows no major pulmonary embolus. 5. Mildly progressive narrowing of central bronchi of the right upper, right lower lobe, as well as left upper lobe. ACT 112: Negative or not required by law. The above report was generated using voice recognition software. It may contain grammatical, syntax or spelling errors. Electronically signed by: Baljeet Myers M.D. 09/07/2019 8:26 PM ECG Data Attestation: I personally reviewed and interpreted this ECG as follows: Indication: + SOB/dyspnea Rate (beats per minute): 68 Rhythm: + atrial fibrillation ECG [place]: + Left axis deviation ECG Findings: + PVCs (occasional ) and + Other (intermittent pacing, no acute ischemic changes ) Blood Pressure Blood Pressure Findings: Elevated blood pressure Blood Pressure Disposition: further management by hospitalist KOBY Narrative Patient here with complaints of shortness of breath and obvious increased work of breathing with any exertion or supine position. No other overt signs or symp toms of congestive heart failure. Patient denied any recent symptoms to suggest evolving upper respiratory infection or pneumonia. Patient does have an MDI and nebulizer at home, that he used without relief today. Patient does not wear home oxygen. Patient here initially improved with nasal cannula. However upon return from CAT scan, patient's work of breathing increased, and he became very hypoxic requiring upgrading to a nonrebreather. Despite slowly improving oxygen saturations patient continued to have increased work of breathing and complaint of shortness of breath so BiPAP was initiated. This eventually did help calm the patient's breathing and he felt markedly improved. Sats were improved and held as well. CT did not show any PE or pneumonia, no evidence of acute pulmonary edema. Small bilateral pleural effusions were noted, however patient noted to have increased right lung mass that has been followed, as well as a new left lung mass. Patient and son made aware of the these results and were in agreement with plan for additional inpatient monitoring. Impression & Plan Dyspnea, Lung mass, Hypoxia, Pleural effusion Discharge Plan Visit Data *Final* Discharge Date/Time: 09/07/19 23:44 Chief Complaint: Shortness of Breath/Dyspnea Stated Complaint: SOB, DOESNT FEEL RIGHT, HAS PACEMAKER ED Provider: Susanne Reed Discharge Problem: Dyspnea, Lung mass, Hypoxia, Pleural effusion Patient Disposition: Admitted As Inpatient Discharge Instructions Interventions: ED Discharge Assessment Last Done: 09/07/19 23:44 Discharge Problem: Dyspnea Qualifiers: Dyspnea type: unspecified Qualified Code(s): R06.00 - Dyspnea, unspecified The scribe's documentation has been prepared under my direction and personally reviewed by me in its entirety. I confirm that the note above accurately r eflects all work, treatment, procedures, and medical decision making performed by me.
[2019-09-08] MEDS: methylPREDNISolone 40 MG in SYRINGE 0 ML IV SCH ×4 (03:43→21:19)
[2019-09-08] MEDS: INSULIN ASPART 100 UNITS/ML 3 ML PEN SC SCH ×5 (03:43→21:16)
[2019-09-08] MEDS: HEPARIN SOD 5,000 UNIT/0.5 ML VIAL SQ SCH ×3 (05:13→21:19)
[2019-09-08 05:59] LABS: Hematocrit (blood only) 39.7 % (42-52); Hemoglobin 13.1 g/dL (14.0-18.0); Mean Corpuscular Hemoglobin 29.8 pg (25-34); Mean Corpuscular Volume 90.2 fL (80-100); Mean Platelet Volume 10.2 fL (7.4-10.4); Platelet Count 172 K/uL (130-400); RDW Coefficient of Variation 14.6 % (11.5-14.5); RDW Standard Deviation 48.1 fL (36.4-46.3); White Blood Count 6.88 K/uL (4.8-10.8)
[2019-09-08 06:19] LABS: Estimated Average Glucose 169 mg/dl; Hemoglobin A1C 7.5 % (4.5-5.6)
[2019-09-08 06:38] LABS: BUN Creatinine Ratio 17.2 (10-20); Calcium 8.8 mg/dl (8.5-10.1); Creatinine Clr Calc Pharmacy 42.4 ml/min; Est GFR (Non-African American) 51.8; Potassium 3.9 mmol/L (3.5-5.1)
[2019-09-08] MEDS: MAGNESIUM OXIDE 400 MG TAB PO SCH ×2 (07:42→21:17)
[2019-09-08] MEDS: ASPIRIN 81 MG ECTAB PO SCH (07:42)
[2019-09-08] MEDS: OMEGA-3 (PURIFIED FISH OIL) 1 GM CAP PO SCH (07:42)
[2019-09-08] MEDS: hydroCHLOROthiazide 25 MG TAB PO SCH (07:42)
[2019-09-08] MEDS: FUROSEMIDE 40 MG TAB PO SCH (07:42)
[2019-09-08] MEDS: CEROVITE ADV FORMULA TAB PO SCH (07:42)
[2019-09-08] MEDS: CHOLECALCIFEROL 1,000 UNITS TAB PO SCH (07:43)
[2019-09-08] MEDS: BUDESONIDE/FORMOTEROL FUMARATE 160/4.5 60 PUFFS/INHALER INH SCH ×2 (09:29→21:18)
--- NOTE | 2019-09-08 10:02 | Pulmonary Consultation ---
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 Retired in 1995 No history of tobacco abuse Patient previously followed with Dr. Singh several years ago No pulmonary function testing recently Patient does have chronic bronchospasm and is treated with albuterol, Symbicort, nebs as needed CT scan shows no evidence of pulmonary emboli Patient does have slight progression of left as well as right masses most likely from silicosis No further hypoxia No hypercapnia (serum CO2 28) Currently on ceftriaxone and azithromycin Consider changing to Augmentin p.o. 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 Smith's addendum for further recommendations Will set patient up for outpatient follow-up in the pulmonary clinic with PFTs Follow up appointment with Dr. Smith for 10/03/2019 at 09:00am Supervising Physician Co-Signing Physician Notes Patient seen and examined with Jewel ashley PA-C. 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 I did review his CT scan from 2017 and the most recent one from . 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 He has eggshell calcification throughout his mediastinum. It does appear that his right upper lobe and right lower lobe are extrinsically compressed to a certain extent likely related to the adenopathy. I do not think that he would be a good candidate for bronchial stenting. I do not think that he is acutely infected and we can likely stop his antibiotics. I would recommend transitioning IV Solu-Medrol to p.o. prednisone and tapering off over the course of the next week to 2 weeks. It is not unreasonable to follow patient up in the pulmonary clinic, although, I am not certain how much we would be able to alter the natural progression of his disease. The patient's granddaughter was in the room as well and they both agreed to the assessment and plan. Pulmonary will sign off. Please do not hesitate to give us a call with questions. Thank you for allowing us to participate in the care of this blanca seay gentleman. History of Present Illness Attending Physician: Oren Amezquita MD History of Present Illness Attending: Dr. Smith This is a pleasant 84-year-old male that presents with shortness of breath. He previously followed with Dr. Singh many many years ago but was discharged from the clinic as he had no improvement and was stable from a pulmonary standpoint. The patient worked in the [employer] for 45 years and was exposed to brick dust. He retired in 1995. He has no history of tobacco abuse but his did smoke and she quit smoking in 2002. His last year and currently his son lives with him. The patient served in [employer] from [id number] and had no combat injury but was exposed to cold with no frostbite injury. The patient gets his inhalers and nebulizer supplies from the [place]. He currently takes Symbicort twice daily, DuoNeb as needed, albuterol inhaler as needed. He has not seen a market risk analyst for several years. The patient states he has a cough but no productive sputum. He is feeling as though his back at baseline. He still has considerable bronchospasm and shortness of breath with speaking in full sentences. He has no hemoptysis. He denies chest pain. He has no back pain. He denies any fever, chills, sweats, rigors. He has chronic lower extremity edema and denies any asymmetric edema or history of thromboembolic disease. He has no lower extremity pain. He denies pleuritic pain. The patient has no other acute complaints. Allergies Allergy/AdvReac Type Severity Reaction Status Date / Time No Known Allergies Allergy Verified 09/07/19 20:01 Home Medications Home Medications Medication Instructions Recorded Confirmed Type Centrum Silver 1 tab PO QAM 10/25/18 09/07/19 History Symbicort 2 puff INHALATION BID 10/25/18 09/07/19 History albuterol sulfate 2.5 mg INHALATION Q6 10/25/18 09/07/19 History albuterol sulfate [Ventolin HFA] 2 puff INHALATION Q6H PRN 10/25/18 09/07/19 History cholecalciferol (vitamin D3) 1,000 unit PO QAM 10/25/18 09/07/19 History [Vitamin D3] omega 9-ker-vkm-fish oil [Fish Oil] 1 cap PO QAM 10/25/18 09/07/19 History prazosin 2 mg PO HS 10/25/18 09/07/19 History metformin 1,000 mg PO BID #60 tab 10/26/18 09/07/19 Rx hydrochlorothiazide 0 mg PO QAM 10/29/18 09/07/19 History aspirin 81 mg PO DAILY 09/07/19 09/07/19 History furosemide 40 mg PO DAILY 09/07/19 09/07/19 History magnesium oxide 420 mg PO BID 09/07/19 09/07/19 History simvastatin 20 mg PO HS 09/07/19 09/07/19 History Patient History Medical History Anemia Asthma BPH (benign prostatic hyperplasia) Chronic silicosis Diabetes mellitus, type 2 NIDDM Epistaxis GI bleed H/O H/O cardiac pacemaker 09/01/2014, FOLLOWS WITH DR ARRIAGA ([place]). LAST CHECKED JUNE 24, 2018. Hearing deficit BILATERAL AIDES HTN (hypertension) Hyperlipidemia Surgical History H/O inguinal hernia repair H/O sinus surgery ENDOCAUTERY (30 YEARS AGO) History of colonoscopy History of esophagogastroduodenoscopy (EGD) History of herniorrhaphy RIGHT & LEFT INGUINAL HERNIA REPAIR History of orchiectomy RIGHT Family History Mother Family history of diabetes mellitus Other Dyslipidemia Hypertension Social History (Updated 09/08/19 @ 09:58 by Jewel Ashley PA-C) Preferred Language: Frisian Communication Ability: Effective Senior Site Manager Required: No Beliefs That Will Affect Care: None Current Living Situation: Family Feels Safe at Home: Yes Smoking Status: Never smoker Second Hand Exposure: No ; Hx Alcohol Use: No Hx Substance Use: No Review of Systems Review of Systems: All systems reviewed & are unremarkable except as noted in HPI & below Physical Exam Physical Exam: GENERAL : No acute distress. Pleasant. Talkative EYES: No icterus, gaze conjugate NOSE: No evidence of epistaxis MOUTH: No lesions or candidiasis. Full upper and lower dentures. Mucosa moist. NECK: Supple. No stridor LUNGS: Scattered bronchospasm in all [place]. No crackles or rhonchi appreciated HEART: Regular, rate controlled ABDOMEN: Soft, NT, ND, BS Present EXTREMITIES: +2 bilateral LE edema, pedal pulses intact and equal. No calf tenderness. NEURO: A&OX3. No focal deficits appreciated Results & Data Vital Signs (Past 12 Hours) Vital Signs Temp Pulse Pulse Resp BP BP Pulse Ox 09/08/19 07:07 60 60 20 98 09/08/19 06:45 36.5 C 60 21 142/78 H 100 09/08/19 05:04 60 24 100 09/08/19 03:40 36.5 C 60 21 165/83 H 100 09/08/19 00:40 60 34 H 100 09/08/19 00:39 60 34 H 100 09/08/19 00:31 61 09/08/19 00:19 84 28 H 100 09/08/19 00:18 35.9 C L 60 20 167/88 H 100 09/08/19 00:11 60 09/07/19 23:31 60 18 144/82 H 100 09/07/19 23:00 72 19 156/80 H 100 09/07/19 22:30 60 19 148/81 H 100 09/07/19 22:26 76 22 100 09/07/19 22:00 61 20 168/95 H 99 Laboratory Results 09/08/19 05:47 09/08/19 05:47 No ABGs completed this admission Diagnostic Findings CT angio chest PE protocol 09/07/2019 CT DOSE: 480.04 mGy.cm HISTORY: Chest pain PE, known right mass TECHNIQUE: Multiaxial CT images of the chest were performed following the intravenous administration of contrast to evaluate the pulmonary arteries. Max imal intensity projection images were also obtained. A dose lowering technique was utilized adhering to the principles of ALARA. COMPARISON STUDY: 12/11/2016 FINDINGS: Interval development of small bilateral pleural effusions. Slightly progressive right perihilar mass. Minimal development of masslike process involving the left upper lung. Parenchymal nodularity throughout both hemithoraces slightly progressive compared to the prior study. Atherosclerotic change thoracic aorta considered unchanged. Progressive luminal narrowing components of the right lower lobe bronchus. Similar findings are seen involving the left upper lobe bronchus. Incomplete filling of the right main pulmonary artery primarily secondary to what appears to be vascular compromise due to the mass process. No well-defined acute filling defect is present within these limitations. IMPRESSION: 1. Mildly progressive right perihilar mass with interval development of a smaller left upper lobe parenchymal mass. 2. Similar progressive perihilar adenopathy with evidence for extrinsic compression upon the central pulmonary vasculature. 3. Interval small bilateral pleural effusions. 4. The pulmonary vasculature within the limitations of a lack of recent imaging shows no major pulmonary embolus. 5. Mildly progressive narrowing of central bronchi of the right upper, right lower lobe, as well as left upper lobe. ACT 112: Negative or not required by law. The above report was generated using voice recognition software. It may contain grammatical, syntax or spelling errors. Electronically signed by: Baljeet Myers M.D. 09/07/2019 8:26 PM PG Care Time/CCT Total # of Minutes Spent Total Time Spent with Patient: Total time spent is greater than 50% in coordination of care (as documented) at patient's floor/unit and/or counseling patient: 60 minutes including discussion with granddaughter and with patient
--- NOTE | 2019-09-08 14:07 | Hospitalist Progress Note ---
Date of Service September 08, 2019 Assessment & Plan (1) Acute and chronic respiratory failure with hypoxia: Possibly mild pneumonia vs. bronchospasm. - Seen by pulm - Recommend 5 days of abx. - Will give short course of steroids. - Possible discharge tomorrow. (2) Chronic silicosis: Had worked in [employer] for 45 years. - Continue Symbicort, Nebs - Follow up with pulm. (3) Diabetes mellitus, type 2: - Hold home meds - Sliding scale insulin - Monitor sugars (4) Hyperlipidemia: continue simvastatin (5) HTN (hypertension): Continue HCTZ and Lasix. (6) BPH (benign prostatic hyperplasia): Continue prazosin. Subjective Reports he basically feels back to baseline. No major concerns. Reports no fevers/chills, chest pain, shortness of breath, abdominal pain, nausea, or vomiting. Physical Exam Constitutional: WD/WN, vitals as above Eyes: EOM intact bilaterally; no conjunctival abnormality ENMT: external ear and nose normal, oropharynx normal Neck: trachea midline, no thyromegaly normal visual inspection Respiratory: normal respiratory effort, lungs clear to auscultation no respiratory distress Auscultation: + diminished lung sounds Cardiovascular: RRR, no murmur, no edema Gastrointestinal (Abdomen): Inspection/Auscultation: abdomen normal to inspection; abdomen not distended Musculoskeletal: no cyanosis or clubbing, extremities motor strength 5/5 Skin: no rashes, warm and dry Neurologic: moves all extremities and awake Psychiatric: Orientation: alert, oriented to person and cooperative Results & Data Vital Signs (Past 12 Hours) Vital Signs Temp Pulse Pulse Resp BP Pulse Ox 09/08/19 13:28 60 16 95 09/08/19 11:54 37.0 C 78 23 174/93 H 92 09/08/19 07:07 60 60 20 98 09/08/19 06:45 36.5 C 60 21 142/78 H 100 09/08/19 05:04 60 24 100 09/08/19 03:40 36.5 C 60 21 165/83 H 100 PG Care Time/CCT Total # of Minutes Spent Total Time Spent with Patient: Total time spent is greater than 50% in coordination of care (as documented) at patient's floor/unit and/or counseling patient:
--- NOTE | 2019-09-08 14:56 | Electrocardiogram Report ---
Test Reason : Blood Pressure : / mmHG Vent. Rate : 068 BPM Atrial Rate : 076 BPM P-R Int : 000 ms QRS Dur : 116 ms QT Int : 376 ms P-R-T Axes : 000 -60 018 degrees QTc Int : 399 ms Atrial fibrillation with frequent ventricular-paced complexes Left anterior fascicular block Left ventricular hypertrophy with QRS widening Abnormal ECG No previous ECGs available Confirmed by Javier Moon ([id number]) on 09/08/2019 2:55:38 PM Referred By: REFERRED SELF Confirmed By:Javier Moon
[2019-09-08] MEDS ORDERED: INSULIN GLARGINE SOLOSTAR 100 UNITS/ML 3 ML PEN SC SCH (16:30)
[2019-09-08] MEDS ORDERED: SIMVASTATIN 20 MG TAB PO SCH (21:00)
[2019-09-08] MEDS ORDERED: PRAZOSIN HCL 1 MG CAP PO SCH (21:00)
[2019-09-09] MEDS: ALBUT/IPRATROP 3MG/0.5MG NEB 3 ML VIAL NEB SCH ×2 (00:14→07:02)
[2019-09-09] MEDS: AZITHROMYCIN 500 MG in DEXTROSE 5% 250 ML IV SCH (00:53)
[2019-09-09] MEDS: cefTRIAXone SODIUM 1,000 MG in DEXTROSE 5% 50 ML IV SCH (00:53)
[2019-09-09] MEDS: HEPARIN SOD 5,000 UNIT/0.5 ML VIAL SQ SCH (05:22)
[2019-09-09] MEDS: methylPREDNISolone 40 MG in SYRINGE 0 ML IV SCH ×2 (05:22→09:38)
[2019-09-09 06:20] LABS: Hematocrit (blood only) 37.9 % (42-52); Hemoglobin 12.9 g/dL (14.0-18.0); Mean Corpuscular Hemoglobin 29.6 pg (25-34); Mean Corpuscular Volume 86.9 fL (80-100); Mean Platelet Volume 10.6 fL (7.4-10.4); Platelet Count 176 K/uL (130-400); RDW Coefficient of Variation 14.6 % (11.5-14.5); RDW Standard Deviation 46.3 fL (36.4-46.3); Red Blood Count 4.36 M/uL (4.7-6.1); White Blood Count 7.59 K/uL (4.8-10.8)
[2019-09-09 06:46] LABS: BUN Creatinine Ratio 25.3 (10-20); Creatinine Clr Calc Pharmacy 36.3 ml/min; Est GFR (African American) 49.8; Est GFR (Non-African American) 42.9; Potassium 4.1 mmol/L (3.5-5.1)
[2019-09-09] MEDS: INSULIN ASPART 100 UNITS/ML 3 ML PEN SC SCH (07:43)
[2019-09-09] MEDS: hydroCHLOROthiazide 25 MG TAB PO SCH (07:44)
[2019-09-09] MEDS: FUROSEMIDE 40 MG TAB PO SCH (07:44)
[2019-09-09] MEDS: ASPIRIN 81 MG ECTAB PO SCH (07:45)
[2019-09-09] MEDS: MAGNESIUM OXIDE 400 MG TAB PO SCH (07:45)
[2019-09-09] MEDS: CHOLECALCIFEROL 1,000 UNITS TAB PO SCH (07:45)
[2019-09-09] MEDS: OMEGA-3 (PURIFIED FISH OIL) 1 GM CAP PO SCH (07:45)
[2019-09-09] MEDS: CEROVITE ADV FORMULA TAB PO SCH (07:45)
[2019-09-09] MEDS: BUDESONIDE/FORMOTEROL FUMARATE 160/4.5 60 PUFFS/INHALER INH SCH (07:45)
--- NOTE | 2019-09-09 15:35 | Discharge Summary ---
Date of Service September 09, 2019 Principal Diagnosis Bronchospasm Discharge Exam Constitutional WD/WN, vitals as above Eyes EOM intact bilaterally; no conjunctival abnormality ENMT external ear and nose normal, oropharynx normal Neck trachea midline, no thyromegaly normal visual inspection Respiratory normal respiratory effort, lungs clear to auscultation no respiratory distress Auscultation: + diminished lung sounds Cardiovascular RRR, no murmur, no edema Gastrointestinal (Abdomen) Inspection/Auscultation: abdomen normal to inspection; abdomen not distended Musculoskeletal no cyanosis or clubbing, extremities motor strength 5/5 Skin no rashes, warm and dry Neurologic moves all extremities and awake Psychiatric Orientation: alert, oriented to person and cooperative Discharge Data Allergies Allergy/AdvReac Type Severity Reaction Status Date / Time No Known Allergies Allergy Verified 09/07/19 20:01 Consultations 09/07/19 22:31 ED Decision to Admit Stat 09/08/19 00:14 Consult Pulmonology Routine Ordered Studies 09/07/19 19:49 CT angio chest PE protocol Stat Hospital Course (1) Acute and chronic respiratory failure with hypoxia: Possibly mild pneumonia vs. bronchospasm. - Seen by pulm - Recommend 5 days of abx. - Gave short course of steroids to help reduce inflammation. - By discharge, he was breathing completely at baseline which points toward an acute issue like the bronchospasm instead of a COPD exacerbation. He will follow up outpatient for further testing of his lungs. (2) Chronic silicosis: Had worked in [employer] for 45 years. Increased masses were noted on CT chest which were felt to be progression of his silicosis. However, the patient did not want aggressive treatment, so no biopsy was undertaken. - Continue Symbicort, Nebs on discharge. - Follow up with pulm. as outpatient. (3) HTN (hypertension): Continued Lasix. - Stopped HCTZ given the indication that he had slight dehydration. - Recheck BMP in 1-2 weeks. (4) Diabetes mellitus, type 2: - Hold home meds - Sliding scale insulin - Monitor sugars (5) Hyperlipidemia: Continue simvastatin (6) BPH (benign prostatic hyperplasia): Continue prazosin. (7) CKD (chronic kidney disease) stage 3, GFR 30-59 ml/min: Noted. Cr stable at 1.3 - 1.45 during admission. Total Time Total Time Spent Total Time Spent (In Minutes): 35 Discharge Plan Discharge Items Patient Disposition: Home - Self-Care Reason For Visit: ACUTE ON CHRONIC RESPIRATORY FAILURE W/ HYPOXIA Discharge Diagnosis: Bronchospasm and lung masses Activity: Resume your previous activity Non-emergency contact: Primary Care Provider and Chart Computer Call non-emergency contact if: your symptoms worsen and your temperature is above 101 Follow-up/Referrals: Lupillo Smith MD [Physician] - (Please follow up with Dr. Smith for further testing and follow up.) Sofia Coronado MD [Primary Care Provider] - Diet: Heart Healthy Addtl Attending Provider Instructions: You were admitted to the hospital with shortness of breath. We believe this is due to the reactivity of your lungs and may be related to your prior work exposure. There may also be a very mild pneumonia, and we are treating you with antibiotics as well to try to improve your breathing. Please take the antibiotic starting tomorrow morning and take it two times per day until it is gone. You can use your nebulizer as well to help your breathing. Please follow up with Dr. Smith in the office for any further testing and follow up that needs to be done. Finally, please stop your hydrochlorothiazide. It works in the same way as your Lasix and may cause you to get too dehydrated. Please follow up with your PCP in the next 1-2 weeks to be sure your blood pressure is stable. Pending Studies at Discharge: No Stand-Alone Forms: My [facility] [employer], Smoking Cessation Medications and DC Order Prescriptions: New amoxicillin-pot clavulanate 875-125 mg tablet 1 tab PO BID Qty: 8 RF: 0 prednisone 10 mg tablet 30 mg PO DAILY Qty: 6 RF: 0 Continued albuterol sulfate 2.5 mg /3 mL (0.083 %) solution for nebulization 2.5 mg Inhalation Q6 RF: 0 albuterol sulfate [Ventolin HFA] 90 mcg/actuation Hfa Aerosol Inhaler 2 puff INHALATION Q6H PRN (Reason: Shortness Of Breath Or Wheezing) RF: 0 cholecalciferol (vitamin D3) [Vitamin D3] 1,000 unit Capsule 1,000 unit PO QAM RF: 0 Centrum Silver 0.4-300-250 mg-mcg-mcg Tablet 1 tab PO QAM RF: 0 Symbicort 160-4.5 mcg/actuation Hfa Aerosol Inhaler 2 puff INHALATION BID RF: 0 omega 9-yhu-kmf-fish oil [Fish Oil] 1,000 mg (120 mg-180 mg) Capsule 1 cap PO QAM RF: 0 prazosin 2 mg Capsule 2 mg PO HS RF: 0 metformin 1,000 mg tablet 1,000 mg PO BID Qty: 60 RF: 0 magnesium oxide 420 mg Tablet 420 mg PO BID RF: 0 simvastatin 40 mg Tablet 20 mg PO HS RF: 0 furosemide 40 mg Tablet 40 mg PO DAILY RF: 0 aspirin 81 mg Tablet,Chewable 81 mg PO DAILY RF: 0 Discontinued hydrochlorothiazide 25 mg Tablet 0 mg PO QAM RF: 0 Discharge Orders: Discharge Order (Routine); Ordered 09/09/19 Ordered By: Oren Carlson/Other Patient Handouts: Pneumonia, Pneumonia Prevent, Shortness of Breath Control Stress Admission Data Admit Date/Time: 09/07/19 23:14 Attending Provider: Oren Amezquita Admit Provider: Lance Noel Primary Care Provider: Sofia Coronado Other Providers: Lupillo Smith ; Oren Amezquita Other Interventions: Discharge Summary Assessment (RN) Last Done: 09/09/19 11:25 DC Date/Time DO NOT enter until pt leaves facility: 09/09/19 12:07
== END 2019-09-09 12:07 | disposition home or self-care (01) | DRG 189 ==
LOC: ED 18:18 → SUATTDRO 23:14 → 2E 23:14

== ENCOUNTER 2020-08-08 20:12 | Inpatient (IN) ==
[2020-08-08] MEDS ORDERED: FUROSEMIDE 40 MG/4 ML VIAL IV STA (20:27)
[2020-08-08] MEDS ORDERED: ALBUT/IPRATROP 3MG/0.5MG NEB 3 ML VIAL NEB ONE (20:51)
[2020-08-08 20:53] LABS: Basophils # (auto) 0.01 K/uL (0-0.2); Basophils % (auto) 0.1 %; Eosinophils # (auto) 0.01 K/uL (0-0.5); Eosinophils % (auto) 0.1 %; Hematocrit (blood only) 40.1 % (42-52); Hemoglobin 12.9 g/dL (14.0-18.0); Immature Granulocytes # (auto) 0.02 K/uL (0.00-0.02); Immature Granulocytes % (auto) 0.2 %; Lymphocytes # (auto) 0.26 K/uL (1.2-3.4); Lymphocytes % (auto) 2.4 %; Mean Corpuscular Hemoglobin 29.3 pg (25-34); Mean Corpuscular Hgb Conc 32.2 g/dL (32-36); Mean Corpuscular Volume 90.9 fL (80-100); Mean Platelet Volume 10.6 fL (7.4-10.4); Monocytes # (auto) 0.77 K/uL (0.11-0.59); Monocytes % (auto) 7.1 %; Neutrophils % (auto) 90.1 %; Platelet Count 154 K/uL (130-400); RDW Coefficient of Variation 14.8 % (11.5-14.5); Red Blood Count 4.41 M/uL (4.7-6.1); White Blood Count 10.87 K/uL (4.8-10.8)
[2020-08-08 21:04] LABS: INR 1.1 (0.9-1.1); Partial Thromboplastin Time 28.6 Seconds (21.0-31.0); Prothrombin Time 11.9 Seconds (9.0-12.0)
[2020-08-08 21:14] LABS: Albumin Level 3.9 gm/dl (3.4-5.0); Calcium 9.2 mg/dl (8.5-10.1); Creatinine Clr Calc Pharmacy 33.1 ml/min; Est GFR (African American) 44.6; Est GFR (Non-African American) 38.5; Magnesium 2.1 mg/dl (1.8-2.4); Potassium 4.8 mmol/L (3.5-5.1)
[2020-08-08 21:16] LABS: Bilirubin,Total 0.7 mg/dl (0.2-1); Globulin 3.9 gm/dl (2.5-4.0); Total Protein 7.8 gm/dl (6.4-8.2)
[2020-08-08] MEDS ORDERED: PIPERACILL/TAZOBAC CONSULT ACTIVE PRN (21:40)
[2020-08-08] MEDS ORDERED: PIPERACILLIN/TAZOBACTAM 4.5 GM/120 ML BAG IV ONE (21:40)
[2020-08-08 21:42] LABS: Appearance Urine Clear (Clear); Bacteria Urine Automated Negative (Negative); Bilirubin Urine Negative (Negative); Blood Urine Trace (Negative); Color Urine Yellow; Glucose Urine UA Trace (Negative); Ketones Urine Negative (Negative); Leukocyte Esterase Urine Negative (Negative); Nitrite Urine Negative (Negative); Protein Urine 2+ (Negative); RBC Urine Automated 0-4 /hpf (0-4); Specific Gravity Urine 1.023 (1.000-1.030); Urobilinogen Urine Negative (Negative)
--- NOTE | 2020-08-08 22:08 | Emergency Department Note ---
History of Present Illness General Chief complaint: Respiratory Distress Stated complaint: RESPIRATORY DISTRESS Time Seen by Provider: 08/08/20 20:18 Source: patient and RN notes reviewed Mode of arrival: EMS Limitations: clinical acuity (bipap) History of Present Illness Provider complaint: Shortness of breath, lung mass This patient is an 85-year-old male who presents emergency department by EMS with complaints of increased shortness of breath. He states he had a sudden onset early this morning and has been struggling for most of the day. He has a history of lung mass, pleural effusion, renal failure and chronic silicosis. Patient states he does not use home oxygen. He was given 1 inch of nitroglycerin paste and placed on BiPAP by EMS. Patient states he has been taking his medications. Patient denies any recent fevers or known Covid exposures. He states one of his grandchildren does work at [employer]. Home Medications Medication Instructions Recorded Confirmed Type Centrum Silver 1 tab PO QAM 10/25/18 08/08/20 History Symbicort 2 puff INHALATION BID 10/25/18 09/07/19 History albuterol sulfate [Ventolin HFA] 2 puff INHALATION Q6H PRN 10/25/18 08/08/20 History cholecalciferol (vitamin D3) 1,000 unit PO QAM 10/25/18 08/08/20 History [Vitamin D3] prazosin 2 mg PO HS 10/25/18 08/08/20 History metformin 1,000 mg PO BID #60 tab 10/26/18 08/08/20 Rx aspirin 81 mg PO DAILY 09/07/19 08/08/20 History magnesium oxide 420 mg PO BID 09/07/19 08/08/20 History simvastatin 20 mg PO HS 09/07/19 08/08/20 History alogliptin 6.25 mg PO DAILY 08/08/20 08/08/20 History budesonide-formoterol 2 puff INHALATION BID 08/08/20 08/08/20 History bumetanide 1 mg PO DAILY 08/08/20 08/08/20 History potassium chloride 10 meq PO DAILY 08/08/20 08/08/20 History quetiapine 25 mg PO BID 08/08/20 08/08/20 History Allergies Allergy/AdvReac Type Severity Reaction Status Date / Time No Known Allergies Allergy Verified 08/08/20 21:51 Past Med/Surg History Medical History (Updated 08/12/20 @ 18:26 by ASHLEY Bui) Anemia Asthma BPH (benign prostatic hyperplasia) Chronic silicosis Diabetes mellitus, type 2 NIDDM Epistaxis GI bleed H/O H/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 LAST CHECKED JUNE 24, 2018. Hearing deficit BILATERAL AIDES HTN (hypertension) Hyperlipidemia Palliative care encounter Surgical History H/O inguinal hernia repair H/O sinus surgery ENDOCAUTERY (30 YEARS AGO) History of colonoscopy History of esophagogastroduodenoscopy (EGD) History of herniorrhaphy RIGHT & LEFT INGUINAL HERNIA REPAIR History of orchiectomy RIGHT Family History Mother Family history of diabetes mellitus Other Dyslipidemia Hypertension Social History Smoking Status: Never smoker Second Hand Exposure: No; Hx Alcohol Use: No Hx Substance Use: No Preferred Language: [place] Communication Ability: Effective Guide Travel Required: No Beliefs That Will Affect Care: None marital status: Unknown Current Living Situation: Family Feels Safe at Home: Yes Assistive Devices: None Review of Systems See HPI for pertinent positives & negatives. Somewhat limited secondary to respiratory difficulty and BiPAP Physical Exam Vital Signs Vital Signs - 24 hr 08/08/20 20:15 08/08/20 20:25 08/08/20 20:41 Temperature Source Oral Pulse Rate 88 83 Pulse Rate [Apical] Respiratory Rate 33 H 36 H Respiratory Effort / Characteristics Spontaneous Labored Short of Breath Accessory Muscle Use Labored Respiratory Depth Normal Respiratory Pattern Tachypnea Blood Pressure 194/117 H Blood Pressure [Left Arm] Blood Pressure Mean 142 Blood Pressure Mean [Left Arm] Pulse Oximetry 95 100 Oxygen Delivery Method BiPAP BiPAP Oxygen Flow Rate 30 Fraction of Inspired Oxygen 30 30 93 SaO2/FiO2 Ratio Sepsis Recent Fever Within 48 Hours No Sepsis New/Unexplained Change in Mental Status No Sepsis Action Taken by Nursing No Action Required 08/08/20 20:42 08/08/20 21:00 08/08/20 21:11 Temperature Source Pulse Rate Pulse Rate [Apical] 75 111 H Respiratory Rate 40 H 26 H Respiratory Effort / Characteristics Spontaneous Labored Short of Breath Respiratory Depth Respiratory Pattern Blood Pressure Blood Pressure [Left Arm] 158/90 H Blood Pressure Mean Blood Pressure Mean [Left Arm] 112 Pulse Oximetry 95 96 Oxygen Delivery Method BiPAP BiPAP BiPAP Oxygen Flow Rate Fraction of Inspired Oxygen 30 30 SaO2/FiO2 Ratio 316 Sepsis Recent Fever Within 48 Hours Sepsis New/Unexplained Change in Mental Status Sepsis Action Taken by Nursing 08/08/20 21:31 08/08/20 22:02 08/08/20 22:30 Temperature Source Pulse Rate 66 65 60 Pulse Rate [Apical] Respiratory Rate 28 H 25 H 19 Respiratory Effort / Characteristics Respiratory Depth Respiratory Pattern Blood Pressure 164/91 H 149/71 H 124/65 Blood Pressure [Left Arm] Blood Pressure Mean 122 89 90 Blood Pressure Mean [Left Arm] Pulse Oximetry 99 100 100 Oxygen Delivery Method BiPAP BiPAP BiPAP Oxygen Flow Rate Fraction of Inspired Oxygen 30 30 30 SaO2/FiO2 Ratio Sepsis Recent Fever Within 48 Hours Sepsis New/Unexplained Change in Mental Status Sepsis Action Taken by Nursing Vital signs reviewed. General: Chronically ill-appearing 85-year-old male, in no significant distress. HEENT: No scleral icterus, PERRLA, neck supple. Atraumatic. Cardiovascular: Systolic ejection murmur, regular rate and rhythm. Pacemaker visualized in the anterior chest Pulmonary: Coarse breath sounds to auscultation bilaterally, diminished at the bases, increased work of breathing. Abdomen: Soft, nontender, nondistended, positive bowel sounds. Musculoskeletal: Atraumatic, no peripheral edema. Neurologic: Patient awake alert and answers most questions appropriately. Skin: Warm, dry, no rash Course Administered Medications Acetaminophen (Acetaminophen 500 Mg Tab) 1,000 mg PO Q8 PRN PRN Reason: Pain Stop: 09/08/20 04:01 Last Admin: 08/09/20 20:32 Dose: 1,000 mg Documented by: [id number] Albuterol (Albut/Ipratrop 3mg/0.5mg Neb 3 Ml Vial) 3 ml NEB QIDR ANNA Stop: 09/08/20 06:59 Last Admin: 08/12/20 19:35 Dose: Not Given Documented by: [id number] Admin: 08/12/20 14:56 Dose: 3 ml Documented by: [id number] Admin: 08/12/20 11:06 Dose: 3 ml Documented by: [id number] Admin: 08/12/20 07:22 Dose: 3 ml Documented by: [id number] Admin: 08/12/20 02:08 Dose: 3 ml Documented by: [id number] Admin: 08/11/20 18:53 Dose: Not Given Documented by: [id number] Admin: 08/11/20 15:10 Dose: 3 ml Documented by: [id number] Admin: 08/11/20 11:11 Dose: 3 ml Documented by: [id number] Admin: 08/11/20 07:01 Dose: 3 ml Documented by: [id number] Admin: 08/10/20 19:23 Dose: 3 ml Documented by: [id number] Admin: 08/10/20 16:13 Dose: 3 ml Documented by: [id number] Admin: 08/10/20 11:11 Dose: 3 ml Documented by: [id number] Admin: 08/10/20 07:17 Dose: 3 ml Documented by: [id number] Admin: 08/09/20 19:06 Dose: 3 ml Documented by: [id number] Admin: 08/09/20 16:46 Dose: 3 ml Documented by: [id number] Admin: 08/09/20 15:04 Dose: 3 ml Documented by: [id number] Admin: 08/09/20 10:53 Dose: 3 ml Documented by: [id number] Admin: 08/09/20 07:11 Dose: 3 ml Documented by: [id number] Aspirin (Aspirin 81 Mg Ectab) 81 mg PO DAILY ANNA Stop: 09/08/20 08:59 Last Admin: 08/12/20 08:31 Dose: 81 mg Documented by: [id number] Admin: 08/11/20 10:48 Dose: Not Given Documented by: [id number] Admin: 08/10/20 09:04 Dose: 81 mg Documented by: [id number] Admin: 08/09/20 07:50 Dose: 81 mg Documented by: [id number] Azithromycin (Azithromycin 250 Mg Tab) 250 mg PO QAM ANNA Stop: 08/17/20 09:59 Last Admin: 08/12/20 08:31 Dose: 250 mg Documented by: [id number] Admin: 08/11/20 10:48 Dose: Not Given Documented by: [id number] Admin: 08/10/20 09:55 Dose: 250 mg Documented by: [id number] Budesonide (Budesonide 0.5 Mg/2 Ml Vial (Pulmicort)) 0.5 mg NEB BIDR [facility] Stop: 09/10/20 18:59 Last Admin: 08/12/20 19:35 Dose: 0.5 mg Documented by: [id number] Admin: 08/12/20 07:22 Dose: 0.5 mg Documented by: [id number] Admin: 08/11/20 18:52 Dose: 0.5 mg Documented by: [id number] Enoxaparin Sodium (Enoxaparin Inj 40 Mg/0.4 Ml Syr) 40 mg SQ Q24H [facility] Stop: 09/08/20 01:59 Last Admin: 08/12/20 21:18 Dose: 40 mg Documented by: [id number] Admin: 08/11/20 20:39 Dose: 40 mg Documented by: [id number] Admin: 08/10/20 20:15 Dose: 40 mg Documented by: [id number] Admin: 08/09/20 19:50 Dose: 40 mg Documented by: [id number] Admin: 08/09/20 02:17 Dose: 40 mg Documented by: [id number] Formoterol Fumarate (Formoterol 20 Mcg/2 Ml Vial) 20 mcg NEB BIDR [facility] Stop: 09/10/20 18:59 Last Admin: 08/12/20 19:35 Dose: 20 mcg Documented by: [id number] Admin: 08/12/20 07:22 Dose: 20 mcg Documented by: [id number] Admin: 08/11/20 18:52 Dose: 20 mcg Documented by: [id number] Ceftriaxone Sodium 2,000 mg/ (Dextrose) 70 mls @ 100 mls/hr IV Q24H [facility]; Protocol Stop: 08/16/20 20:59 Last Infusion: 08/12/20 22:48 Dose: 0 mls/hr Documented by: [id number] Admin: 08/12/20 21:20 Dose: 100 mls/hr Documented by: [id number] Infusion: 08/11/20 23:11 Dose: 0 mls/hr Documented by: [id number] Admin: 08/11/20 22:34 Dose: 100 mls/hr Documented by: [id number] Infusion: 08/10/20 22:07 Dose: 0 mls/hr Documented by: [id number] Admin: 08/10/20 20:38 Dose: 100 mls/hr Documented by: [id number] Infusion: 08/09/20 18:40 Dose: 0 mls/hr Documented by: [id number] Admin: 08/09/20 18:09 Dose: 100 mls/hr Documented by: [id number] Bumetanide 4 mg/ Syringe 16 mls @ 4 mls/min IV DAILY@0900,1700 ANNA Stop: 09/10/20 16:59 Last Admin: 08/12/20 17:18 Dose: 4 mls/min Documented by: [id number] Admin: 08/12/20 08:30 Dose: 4 mls/min Documented by: [id number] Admin: 08/11/20 16:06 Dose: 4 mls/min Documented by: [id number] Insulin Aspart (Insulin Aspart 100 Units/Ml 3 Ml Pen) 0 units SC ACHS ANNA Stop: 09/08/20 16:29 Last Admin: 08/12/20 21:30 Dose: Not Given Documented by: [id number] Cosigned by: [id number] Admin: 08/12/20 17:14 Dose: 4 units Documented by: [id number] Cosigned by: [id number] Admin: 08/12/20 12:15 Dose: 2 units Documented by: [id number] Cosigned by: [id number] Admin: 08/12/20 08:47 Dose: 3 units Documented by: [id number] Cosigned by: [id number] Admin: 08/11/20 22:32 Dose: Not Given Documented by: [id number] Admin: 08/11/20 17:29 Dose: 1 units Documented by: [id number] Cosigned by: [id number] Admin: 08/11/20 12:19 Dose: 1 units Documented by: [id number] Cosigned by: [id number] Admin: 08/11/20 07:47 Dose: 1 units Documented by: [id number] Cosigned by: [id number] Admin: 08/10/20 21:11 Dose: 1 units Documented by: [id number] Cosigned by: [id number] Admin: 08/10/20 17:32 Dose: 5 units Documented by: [id number] Cosigned by: [id number] Admin: 08/10/20 12:04 Dose: 3 units Documented by: [id number] Cosigned by: [id number] Admin: 08/10/20 09:07 Dose: 2 units Documented by: [id number] Cosigned by: [id number] Admin: 08/09/20 20:34 Dose: 3 units Documented by: [id number] Cosigned by: [id number] Admin: 08/09/20 17:02 Dose: 5 units Documented by: [id number] Cosigned by: [id number] Morphine Sulfate (Morphine Sulfate 2 Mg/Ml Carp) 0.5 mg IV Q4H PRN PRN Reason: Pain Stop: 08/25/20 15:59 Last Admin: 08/12/20 08:39 Dose: 0.5 mg Documented by: [id number] Admin: 08/12/20 04:17 Dose: 0.5 mg Documented by: [id number] Admin: 08/12/20 00:16 Dose: 0.5 mg Documented by: [id number] Admin: 08/11/20 20:39 Dose: 0.5 mg Documented by: [id number] Admin: 08/11/20 16:21 Dose: 0.5 mg Documented by: [id number] Potassium Chloride (Potassium Chloride 10 Meq Tabcr) 10 meq PO DAILY ANNA Stop: 09/08/20 08:59 Last Admin: 08/12/20 08:32 Dose: 10 meq Documented by: [id number] Admin: 08/11/20 10:48 Dose: Not Given Documented by: [id number] Admin: 08/10/20 09:03 Dose: 10 meq Documented by: [id number] Admin: 08/09/20 07:51 Dose: 10 meq Documented by: [id number] Prazosin HCl (Prazosin Hcl 1 Mg Cap) 2 mg PO HS ANNA Stop: 09/08/20 20:59 Last Admin: 08/12/20 21:17 Dose: 2 mg Documented by: [id number] Admin: 08/11/20 20:41 Dose: 2 mg Documented by: [id number] Admin: 08/10/20 20:15 Dose: 2 mg Documented by: [id number] Admin: 08/09/20 19:51 Dose: 2 mg Documented by: [id number] Quetiapine Fumarate (Quetiapine Fumarate 25 Mg Tablet) 25 mg PO BID ANNA Stop: 09/08/20 00:32 Last Admin: 08/12/20 21:18 Dose: 25 mg Documented by: [id number] Admin: 08/12/20 08:28 Dose: 25 mg Documented by: [id number] Admin: 08/11/20 20:40 Dose: 25 mg Documented by: [id number] Admin: 08/11/20 10:48 Dose: Not Given Documented by: [id number] Admin: 08/10/20 20:15 Dose: 25 mg Documented by: [id number] Admin: 08/10/20 09:03 Dose: 25 mg Documented by: [id number] Admin: 08/09/20 19:51 Dose: 25 mg Documented by: [id number] Admin: 08/09/20 08:35 Dose: 25 mg Documented by: [id number] Admin: 08/09/20 01:31 Dose: 25 mg Documented by: [id number] Simvastatin (Simvastatin 20 Mg Tab) 20 mg PO HS [facility] Stop: 09/08/20 20:59 Last Admin: 08/12/20 21:18 Dose: 20 mg Documented by: [id number] Admin: 08/11/20 20:40 Dose: 20 mg Documented by: [id number] Admin: 08/10/20 20:16 Dose: 20 mg Documented by: [id number] Admin: 08/09/20 19:51 Dose: 20 mg Documented by: [id number] Vitamin D (Cholecalciferol 1,000 Units 25 Mcg Tab) 1,000 units PO QAM [facility] Stop: 09/08/20 08:59 Last Admin: 08/12/20 08:31 Dose: 1,000 units Documented by: [id number] Admin: 08/11/20 10:48 Dose: Not Given Documented by: [id number] Admin: 08/10/20 09:03 Dose: 1,000 units Documented by: [id number] Admin: 08/09/20 07:51 Dose: 1,000 units Documented by: [id number] Discontinued Medications Acetaminophen (Acetaminophen 500 Mg Tab) Confirm Administered Dose 1,000 mg .ROUTE .STK-MED ONE Stop: 08/09/20 04:10 Last Admin: 08/09/20 04:12 Dose: 1,000 mg Documented by: [id number] Acetylcysteine (Acetylcysteine 20% Inhal Soln 4ml Dispensed By Resp.) 5 ml INH Q12R ANNA Stop: 09/08/20 18:59 Last Admin: 08/11/20 07:01 Dose: 5 ml Documented by: [id number] Admin: 08/10/20 19:23 Dose: 5 ml Documented by: [id number] Admin: 08/10/20 07:17 Dose: 5 ml Documented by: [id number] Admin: 08/09/20 19:06 Dose: 5 ml Documented by: [id number] Albuterol (Albut/Ipratrop 3mg/0.5mg Neb 3 Ml Vial) 12 ml NEB ONE ONE Stop: 08/08/20 20:52 Last Admin: 08/08/20 21:08 Dose: 12 ml Documented by: [id number] Diphenhydramine HCl (Diphenhydramine 50 Mg/Ml Vial) 25 mg IV NOW STA Stop: 08/10/20 22:40 Last Admin: 08/11/20 00:19 Dose: Not Given Documented by: [id number] Epinephrine (Racepinephrine 2.25% Nebu Soln 0.5 Ml Vial) 0.5 ml NEB NOW STA Stop: 08/11/20 14:40 Last Admin: 08/11/20 15:59 Dose: Not Given Documented by: [id number] Fluticasone/Vilanterol (Fluticasone/Vilanterol 200/25mcg 14 Puffs/Inhaler) 1 puffs INH DAILY [facility] Stop: 09/08/20 08:59 Last Admin: 08/11/20 10:48 Dose: Not Given Documented by: [id number] Admin: 08/10/20 09:03 Dose: 1 puffs Documented by: [id number] Admin: 08/09/20 07:49 Dose: 1 puffs Documented by: [id number] Furosemide (Furosemide 40 Mg/4 Ml Vial) 40 mg IV NOW STA Stop: 08/08/20 20:28 Last Admin: 08/08/20 20:39 Dose: 40 mg Documented by: [id number] Piperacillin Sod/Tazobactam Sod (Zosyn) 4.5 gm in 120 mls @ 240 mls/hr IV NOW ONE Stop: 08/08/20 22:09 Last Infusion: 08/08/20 22:18 Dose: 0 mls/hr Documented by: [id number] Admin: 08/08/20 21:48 Dose: 240 mls/hr Documented by: [id number] Bumetanide 1 mg/ Syringe 4 mls @ 4 mls/min IV DAILY@0900,1700 [facility] Stop: 09/08/20 08:59 Last Admin: 08/11/20 07:45 Dose: 4 mls/min Documented by: [id number] Admin: 08/10/20 17:32 Dose: 4 mls/min Documented by: [id number] Admin: 08/10/20 09:05 Dose: 4 mls/min Documented by: [id number] Admin: 08/09/20 17:06 Dose: 4 mls/min Documented by: [id number] Admin: 08/09/20 07:50 Dose: 4 mls/min Documented by: [id number] Vancomycin HCl 2,000 mg/ (Sodium Chloride) 540 mls @ 200 mls/hr IV NOW STA; Protocol Stop: 08/09/20 03:58 Last Infusion: 08/09/20 05:31 Dose: 0 mls/hr Documented by: [id number] Admin: 08/09/20 01:32 Dose: 200 mls/hr Documented by: [id number] Piperacillin Sod/Tazobactam (Sod 3.375 gm/ Dextrose) 115 mls @ 28.75 mls/hr IV Q8H [facility]; Protocol Stop: 08/16/20 01:59 Last Infusion: 08/09/20 17:36 Dose: 0 mls/hr Documented by: [id number] Admin: 08/09/20 17:06 Dose: 28.8 mls/hr Documented by: [id number] Infusion: 08/09/20 12:25 Dose: 0 mls/hr Documented by: [id number] Admin: 08/09/20 08:36 Dose: 28.8 mls/hr Documented by: [id number] Infusion: 08/09/20 05:30 Dose: 0 mls/hr Documented by: [id number] Admin: 08/09/20 01:31 Dose: 28.8 mls/hr Documented by: [id number] Azithromycin 500 mg/ Dextrose 255 mls @ 125 mls/hr IV ONE ONE Stop: 08/09/20 19:47 Last Infusion: 08/09/20 20:50 Dose: 0 mls/hr Documented by: [id number] Admin: 08/09/20 18:41 Dose: 125 mls/hr Documented by: [id number] Lorazepam (Ativan) 1 mg in 2 mls @ 2 mls/min IV NOW STA Stop: 08/10/20 22:42 Last Admin: 08/10/20 22:50 Dose: 2 mls/min Documented by: [id number] Lorazepam (Ativan) 1 mg in 2 mls @ 2 mls/min IV NOW STA Stop: 08/11/20 03:34 Last Admin: 08/11/20 04:12 Dose: Not Given Documented by: [id number] Lorazepam (Lorazepam 2 Mg/4 Ml Vial) Confirm Administered Dose 2 mg .ROUTE .STK- MED ONE Stop: 08/10/20 22:46 Last Admin: 08/10/20 22:50 Dose: Not Given Documented by: [id number] Lorazepam (Lorazepam 2 Mg/4 Ml Vial) Confirm Administered Dose 2 mg .ROUTE .STK- MED ONE Stop: 08/11/20 03:35 Last Admin: 08/11/20 03:37 Dose: 1 mg Documented by: [id number] Morphine Sulfate (Morphine Sulfate 2 Mg/Ml Carp) 0.5 mg IV NOW STA Stop: 08/11/20 14:21 Last Admin: 08/11/20 14:33 Dose: Not Given Documented by: [id number] Morphine Sulfate (Morphine Sulfate 2 Mg/Ml Carp) Confirm Administered Dose 2 mg .ROUTE .STK-MED ONE Stop: 08/11/20 14:29 Last Admin: 08/11/20 14:32 Dose: 0.5 mg Documented by: [id number] Medical Decision Making Differential Diagnosis Reactive airway disease, pneumonia, pneumothorax, COPD, CHF, infections, cardiac ischemia, pulmonary embolism, musculoskeletal, gastrointestinal, as well as other pathologies. Medical Records Attestation: I reviewed the patient's medical records. Home Medications Current Medication List: was personally reviewed by me Laboratory Data Attestation: I reviewed the patient's lab results. Result diagrams: 08/12/20 08:59 08/12/20 16:32 Lab Results 08/08/20 08/08/20 08/08/20 Range/Units 20:40 20:43 20:43 WBC 10.87 H (4.8-10.8) K/uL RBC 4.41 L (4.7-6.1) M/uL Hgb 12.9 L (14.0-18.0) g/dL Hct 40.1 L (42-52) % MCV 90.9 (80-100) fL MCH 29.3 (25-34) pg MCHC 32.2 (32-36) g/dL RDW Std Deviation 49.0 H (36.4-46.3) fL RDW Coeff of Maria L 14.8 H (11.5-14.5) % Plt Count 154 (130-400) K/uL MPV 10.6 H (7.4-10.4) fL Immature Gran % (Auto) 0.2 % Neut % (Auto) 90.1 % Lymph % (Auto) 2.4 % Lawrence % (Auto) 7.1 % Eos % (Auto) 0.1 % Baso % (Auto) 0.1 % Neut # (Auto) 9.80 H (1.4-6.5) K/uL Lymph # (Auto) 0.26 L (1.2-3.4) K/uL Lawrence # (Auto) 0.77 H (0.11-0.59) K/uL Eos # (Auto) 0.01 (0-0.5) K/uL Baso # (Auto) 0.01 (0-0.2) K/uL Immature Gran # (Auto) 0.02 (0.00-0.02) K/uL PT 11.9 (9.0-12.0) Seconds INR 1.1 (0.9-1.1) APTT 28.6 (21.0-31.0) Seconds PTT Ratio 1.0 Sodium (136-145) mmol/L Potassium (3.5-5.1) mmol/L Chloride (98-107) mmol/L Carbon Dioxide (21-32) mmol/L Anion Gap (3-11) BUN (7-18) mg/dl Creatinine (0.6-1.4) mg/dl Est Cr Clr Drug Dosing ml/min Est GFR ( Amer) Est GFR (Non-Af Amer) BUN/Creatinine Ratio (10-20) Glucose (70-99) mg/dl Calcium (8.5-10.1) mg/dl Magnesium (1.8-2.4) mg/dl Total Bilirubin (0.2-1) mg/dl AST (15-37) U/L ALT (12-78) U/L Alkaline Phosphatase (45-117) U/L Total Protein (6.4-8.2) gm/dl Albumin (3.4-5.0) gm/dl Globulin (2.5-4.0) gm/dl Albumin/Globulin Ratio (0.9-2) Urine Color Yellow Urine Appearance Clear (Clear) Urine pH 5.0 (4.5-7.5) Ur Specific [place] 1.023 (1.000-1.030) Urine Protein 2+ H (Negative) Urine Glucose (UA) Trace H (Negative) Urine Ketones Negative (Negative) Urine Blood Trace H (Negative) Urine Nitrite Negative (Negative) Urine Bilirubin Negative (Negative) Urine Urobilinogen Negative (Negative) Ur Leukocyte Esterase Negative (Negative) Urine WBC (Auto) 1-5 (0-5) /hpf Urine RBC (Auto) 0-4 (0-4) /hpf U Hyaline Cast (Auto) 1-5 (0-5) /lpf U Epithel Cells (Auto) 10-20 H (0-5) /lpf Urine Bacteria (Auto) Negative (Negative) COVID-19 Eval Order SARS-CoV-2, RNA, NAAT (NEGATIVE) 08/08/20 08/08/20 08/08/20 Range/Units 20:43 20:58 20:58 WBC (4.8-10.8) K/uL RBC (4.7-6.1) M/uL Hgb (14.0-18.0) g/dL Hct (42-52) % MCV (80-100) fL MCH (25-34) pg MCHC (32-36) g/dL RDW Std Deviation (36.4-46.3) fL RDW Coeff of Maria L (11.5-14.5) % Plt Count (130-400) K/uL MPV (7.4-10.4) fL Immature Gran % (Auto) % Neut % (Auto) % Lymph % (Auto) % Lawrence % (Auto) % Eos % (Auto) % Baso % (Auto) % Neut # (Auto) (1.4-6.5) K/uL Lymph # (Auto) (1.2-3.4) K/uL [place] # (Auto) (0.11-0.59) K/uL Eos # (Auto) (0-0.5) K/uL Baso # (Auto) (0-0.2) K/uL Immature Gran # (Auto) (0.00-0.02) K/uL PT (9.0-12.0) Seconds INR (0.9-1.1) APTT (21.0-31.0) Seconds PTT Ratio Sodium 141 (136-145) mmol/L Potassium 4.8 (3.5-5.1) mmol/L Chloride 104 (98-107) mmol/L Carbon Dioxide 30 (21-32) mmol/L Anion Gap 7.0 (3-11) BUN 41 H (7-18) mg/dl Creatinine 1.59 H (0.6-1.4) mg/dl Est Cr Clr Drug Dosing 33.1 ml/min Est GFR ( Amer) 44.6 Est GFR (Non-Af Amer) 38.5 BUN/Creatinine Ratio 26.0 H (10-20) Glucose 223 H (70-99) mg/dl Calcium 9.2 (8.5-10.1) mg/dl Magnesium 2.1 (1.8-2.4) mg/dl Total Bilirubin 0.7 (0.2-1) mg/dl AST 27 (15-37) U/L ALT 30 (12-78) U/L Alkaline Phosphatase 77 (45-117) U/L Total Protein 7.8 (6.4-8.2) gm/dl Albumin 3.9 (3.4-5.0) gm/dl Globulin 3.9 (2.5-4.0) gm/dl Albumin/Globulin Ratio 1.0 (0.9-2) Urine Color Urine Appearance (Clear) Urine pH (4.5-7.5) Ur Specific [place] (1.000-1.030) Urine Protein (Negative) Urine Glucose (UA) (Negative) Urine Ketones (Negative) Urine Blood (Negative) Urine Nitrite (Negative) Urine Bilirubin (Negative) Urine Urobilinogen (Negative) Ur Leukocyte Esterase (Negative) Urine WBC (Auto) (0-5) /hpf Urine RBC (Auto) (0-4) /hpf U Hyaline Cast (Auto) (0-5) /lpf U Epithel Cells (Auto) (0-5) /lpf Urine Bacteria (Auto) (Negative) COVID-19 Eval Order Covid19 IDNow [facility] SARS-CoV-2, RNA, NAAT NEGATIVE (NEGATIVE) Imaging Data Attestation: I personally reviewed and interpreted this imaging study as follo ws: My Impression: CXR to my interpretation reveals a pacer in place, cardiomegaly, R lung mass, congestive change but no sig change from [place] Radiologist's Impression: XR chest 1V portable CLINICAL HISTORY: SOB COMPARISON STUDY: 09/07/2019 FINDINGS: The heart is enlarged. There is a persistent 51 mm right perihilar mass. There is mild elevation right hemidiaphragm. Bilateral interstitial opacities remain similar. There is a left subclavian dual-chamber central venous pacemaker.[ IMPRESSION: 1. Persistent 5 cm right perihilar mass 2. Persistent bilateral interstitial pulmonary opacities 3. Elevation of the right hemidiaphragm ACT 112: Negative or not required by law. Electronically signed by: Darryl Mann M.D. 08/09/2020 7:14 AM Dictated: 08/09/20711Transcribed: 08/09/20711 ECG Data Attestation: I personally reviewed and interpreted this ECG as follows: Indication: + SOB/dyspnea Rate (beats per minute): 80 Rhythm: + atrial fibrillation ECG Intervals/blocks: + Left anterior fascicular block and + Normal QT-c ECG Findings: + LVH and + Other (Poor quality baseline for interpretation); no PACs and no PVCs Blood Pressure Blood Pressure Findings: Elevated blood pressure Blood Pressure Disposition: further management by hospitalist MDM Narrative This patient was evaluated and appeared to be in some respiratory discomfort. He was on BiPAP at the time of my evaluation. The patient has increased work of breathing although is maintaining his oxygenation with an elevated respiratory rate. Patient's chest x-ray reveals evidence of congestive change with a right lung mass my interpretation. Patient was given a 1 hour DuoNeb treatment through the BiPAP. Patient was given 40 mg of IV Lasix. Laboratory work reveals a mildly elevated WBC, elevated creatinine at 1.59 which is similar to the patient's baseline and a negative Covid swab. Patient is EKG reveals a rate controlled atrial fibrillation with a left anterior fascicular block. He was feeling much improved on the BiPAP. Case was discussed with the hospitalist service, Dr. Quinn who will evaluate the patient for admission and further management. Patient is aware of the plan and agrees. Impression & Plan Respiratory failure, acute, Lung mass Discharge Plan Visit Data Chief Complaint: Respiratory Distress Stated Complaint: RESPIRATORY DISTRESS ED Provider: Yue Loja Discharge Problem: Respiratory failure, acute, Lung mass Patient Disposition: Admitted As Inpatient Discharge Instructions Interventions: ED Discharge Assessment Last Done: 08/08/20 23:56 Discharge Problem: Respiratory failure, acute Qualifiers: Respiratory failure complication: unspecified whether with hypoxia or hypercapnia Qualified Code(s): J96.00 - Acute respiratory failure, unspecified whether with hypoxia or hypercapnia
--- NOTE | 2020-08-08 23:08 | History & Physical Report ---
Date of Service August 08, 2020 Assessment & Plan (1) Acute and chronic respiratory failure with hypoxia: Acute on chronic respiratory failure with hypoxia/lower extreme edema/pleural effusion- The patient will be admitted to telemetry for serial cardiac enzymes, serial EKG's, cardiac rhythm monitoring. Given furosemide 40 mg IV in the ED. Admitted on bumetanide 1 mg IV twice daily. Hold oral bumetanide Continue potassium chloride and magnesium oxide Present on Admission?: Yes (2) Lower extremity edema: See above Present on Admission?: Yes (3) Pleural effusion: See above Present on Admission?: Yes (4) CKD (chronic kidney disease) stage 3, GFR 30-59 ml/min: Creatinine 1.59 upon admission, with range 1.25-1.88 Follow serially Present on Admission?: Yes (5) Diabetes mellitus, type 2: Hold alogliptin and Metformin. Placed on Accu-Cheks before meals and at bedtime with NovoLog coverage per scale Present on Admission?: Yes (6) HTN (hypertension): Continue aspirin. Present on Admission?: Yes (7) Hyperlipidemia: Continue simvastatin 20 mg at bedtime Present on Admission?: Yes (8) Chronic silicosis: Ventolin HFA 2 puffs every 6 hours as needed Present on Admission?: Yes History of Present Illness Chief Complaint: The patient is brought to the emergency department by EMS with complaint of worsening shortness of breath, that began acutely early on in the morning, and worsening as the day progressed Primary Care Provider: NO PCP The patient is an 85-year-old male with a past medical history including CKD stage III, lung mass, hypoxia, pleural effusion, acute on chronic respiratory failure with hypoxia, hyperlipidemia, hypertension, diabetes mellitus type 2, chronic silicosis, BPH, epistaxis and history of hypotension. Treatment by EMS in the field included placing the patient on BiPAP, and an inch of Nitropaste. The patient was continued on BiPAP in the emergency department. Work-up included the following significant laboratories: WBC 10.87, glucose 223, creatinine 1.59. SARS-CoV-2, RNA, NAAT (Negative) From the emergency department, patient received Zosyn 4.5 g IV IV, DuoNeb, and furosemide 40 mg IV. Allergies Allergy/AdvReac Type Severity Reaction Status Date / Time No Known Allergies Allergy Verified 08/08/20 21:51 Home Medications Medication Instructions Recorded Confirmed Type Centrum Silver 1 tab PO QAM 10/25/18 08/08/20 History Symbicort 2 puff INHALATION BID 10/25/18 09/07/19 History albuterol sulfate [Ventolin HFA] 2 puff INHALATION Q6H PRN 10/25/18 08/08/20 History cholecalciferol (vitamin D3) 1,000 unit PO QAM 10/25/18 08/08/20 History [Vitamin D3] prazosin 2 mg PO HS 10/25/18 08/08/20 History metformin 1,000 mg PO BID #60 tab 10/26/18 08/08/20 Rx aspirin 81 mg PO DAILY 09/07/19 08/08/20 History magnesium oxide 420 mg PO BID 09/07/19 08/08/20 History simvastatin 20 mg PO HS 09/07/19 08/08/20 History alogliptin 6.25 mg PO DAILY 08/08/20 08/08/20 History budesonide-formoterol 2 puff INHALATION BID 08/08/20 08/08/20 History bumetanide 1 mg PO DAILY 08/08/20 08/08/20 History potassium chloride 10 meq PO DAILY 08/08/20 08/08/20 History quetiapine 25 mg PO BID 08/08/20 08/08/20 History Past Med/Surg History Medical History (Updated 08/09/20 @ 04:29 by Arsenio Leslie MD) Anemia Asthma BPH (benign prostatic hyperplasia) Chronic silicosis Diabetes mellitus, type 2 NIDDM Epistaxis GI bleed H/O 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 LAST CHECKED JUNE 24, 2018. Hearing deficit BILATERAL AIDES HTN (hypertension) Hyperlipidemia Surgical History H/O inguinal hernia repair H/O sinus surgery ENDOCAUTERY (30 YEARS AGO) History of colonoscopy History of esophagogastroduodenoscopy (EGD) History of herniorrhaphy RIGHT & LEFT INGUINAL HERNIA REPAIR History of orchiectomy RIGHT Family History Mother Family history of diabetes mellitus Other Dyslipidemia Hypertension Social History Smoking Status: Never smoker Second Hand Exposure: No; Hx Alcohol Use: No Hx Substance Use: No Preferred Language: Turkmen Communication Ability: Effective Engineering Officer Required: No Beliefs That Will Affect Care: None Current Living Situation: Family Other Information That Helps Us Care for You: No Feels Safe at Home: Yes Safety Concerns: Feels Safe At This Time Assistive Devices: CPAP Review of Systems Review of Systems: Review of systems limited due to physical condition, wearing BiPAP Physical Exam Physical Exam: The patient is awake, on BiPAP, otherwise normocephalic and atraumatic. HEENT--PERRL, EOMI, mucous membranes and oropharynx dry. Neck--supple. No JVD. No bruits. Thyroid normal, trachea midline, no adenopathy. Heart--normal S1 and S2. No murmurs, rubs or gallops. Lungs--coarse breath sounds bilaterally. No respiratory distress or accessory muscle use on BiPAP Abdomen--normal bowel sounds and soft. Nontender. Nondistended. Extremities--no cyanosis or clubbing. There is 2+ bilateral pretibial pitting edema Dermatologic--normal skin turgor, normal color, no abnormal lymph nodes, no rash. Neurologic--cranial nerves II through XII grossly intact. Rheumatologic--limited exam Psychiatric--normal affect. Results & Data Results & Data ([facility]) Vital Signs (Past 12 Hours) Vital Signs Pulse Pulse Resp BP BP Pulse Ox 08/08/20 22:30 60 19 124/65 100 08/08/20 22:02 65 25 H 149/71 H 100 08/08/20 21:31 66 28 H 164/91 H 99 08/08/20 21:11 111 H 26 H 96 08/08/20 21:00 75 40 H 158/90 H 95 08/08/20 20:25 83 36 H 194/117 H 100 08/08/20 20:15 88 33 H 95 Laboratory Results Laboratory Results WBC 10.87 K/uL (4.8-10.8) H 08/08/20 20:43 RBC 4.41 M/uL (4.7-6.1) L 08/08/20 20:43 Hgb 12.9 g/dL (14.0-18.0) L 08/08/20 20:43 Hct 40.1 % (42-52) L 08/08/20 20:43 MCV 90.9 fL (80-100) 08/08/20 20:43 MCH 29.3 pg (25-34) 08/08/20 20:43 MCHC 32.2 g/dL (32-36) 08/08/20 20:43 RDW Std Deviation 49.0 fL (36.4-46.3) H 08/08/20 20:43 RDW Coeff of Maria L 14.8 % (11.5-14.5) H 08/08/20 20:43 Plt Count 154 K/uL (130-400) 08/08/20 20:43 MPV 10.6 fL (7.4-10.4) H 08/08/20 20:43 Immature Gran % (Auto) 0.2 % 08/08/20 20:43 Neut % (Auto) 90.1 % 08/08/20 20:43 Lymph % (Auto) 2.4 % 08/08/20 20:43 [place] % (Auto) 7.1 % 08/08/20 20:43 Eos % (Auto) 0.1 % 08/08/20 20:43 Baso % (Auto) 0.1 % 08/08/20 20:43 Neut # (Auto) 9.80 K/uL (1.4-6.5) H 08/08/20 20:43 Lymph # (Auto) 0.26 K/uL (1.2-3.4) L 08/08/20 20:43 [place] # (Auto) 0.77 K/uL (0.11-0.59) H 08/08/20 20:43 Eos # (Auto) 0.01 K/uL (0-0.5) 08/08/20 20:43 Baso # (Auto) 0.01 K/uL (0-0.2) 08/08/20 20:43 Immature Gran # (Auto) 0.02 K/uL (0.00-0.02) 08/08/20 20:43 PT 11.9 Seconds (9.0-12.0) 08/08/20 20:43 INR 1.1 (0.9-1.1) 08/08/20 20:43 APTT 28.6 Seconds (21.0-31.0) 08/08/20 20:43 PTT Ratio 1.0 08/08/20 20:43 Sodium 141 mmol/L (136-145) 08/08/20 20:43 Potassium 4.8 mmol/L (3.5-5.1) 08/08/20 20:43 Chloride 104 mmol/L (98-107) 08/08/20 20:43 Carbon Dioxide 30 mmol/L (21-32) 08/08/20 20:43 Anion Gap 7.0 (3-11) 08/08/20 20:43 BUN 41 mg/dl (7-18) H 08/08/20 20:43 Creatinine 1.59 mg/dl (0.6-1.4) H 08/08/20 20:43 Est Cr Clr Drug Dosing 33.1 ml/min 08/08/20 20:43 Est GFR ( Amer) 44.6 08/08/20 20:43 Est GFR (Non-Af Amer) 38.5 08/08/20 20:43 BUN/Creatinine Ratio 26.0 (10-20) H 08/08/20 20:43 Glucose 223 mg/dl (70-99) H 08/08/20 20:43 Calcium 9.2 mg/dl (8.5-10.1) 08/08/20 20:43 Magnesium 2.1 mg/dl (1.8-2.4) 08/08/20 20:43 Total Bilirubin 0.7 mg/dl (0.2-1) 08/08/20 20:43 AST 27 U/L (15-37) 08/08/20 20:43 ALT 30 U/L (12-78) 08/08/20 20:43 Alkaline Phosphatase 77 U/L (45-117) 08/08/20 20:43 Troponin I 0.029 ng/ml (0-0.045) 08/09/20 01:10 Total Protein 7.8 gm/dl (6.4-8.2) 08/08/20 20:43 Albumin 3.9 gm/dl (3.4-5.0) 08/08/20 20:43 Globulin 3.9 gm/dl (2.5-4.0) 08/08/20 20:43 Albumin/Globulin Ratio 1.0 (0.9-2) 08/08/20 20:43 Urine Color Yellow 08/08/20 20:40 Urine Appearance Clear (Clear) 08/08/20 20:40 Urine pH 5.0 (4.5-7.5) 08/08/20 20:40 Ur Specific [place] 1.023 (1.000-1.030) 08/08/20 20:40 Urine Protein 2+ (Negative) H 08/08/20 20:40 Urine Glucose (UA) Trace (Negative) H 08/08/20 20:40 Urine Ketones Negative (Negative) 08/08/20 20:40 Urine Blood Trace (Negative) H 08/08/20 20:40 Urine Nitrite Negative (Negative) 08/08/20 20:40 Urine Bilirubin Negative (Negative) 08/08/20 20:40 Urine Urobilinogen Negative (Negative) 08/08/20 20:40 Ur Leukocyte Esterase Negative (Negative) 08/08/20 20:40 Urine WBC (Auto) 1-5 /hpf (0-5) 08/08/20 20:40 Urine RBC (Auto) 0-4 /hpf (0-4) 08/08/20 20:40 U Hyaline Cast (Auto) 1-5 /lpf (0-5) 08/08/20 20:40 U Epithel Cells (Auto) 10-20 /lpf (0-5) H 08/08/20 20:40 Urine Bacteria (Auto) Negative (Negative) 08/08/20 20:40 COVID-19 Eval Order Covid19 [facility]Now [facility] 08/08/20 20:58 SARS-CoV-2, RNA, NAAT NEGATIVE (NEGATIVE) 08/08/20 20:58 Code Status & VTE Plan Code Status DNR/DNI VTE Prophylaxis Plan VTE Prophylaxis will be ordered: Yes PG Care Time/CCT Total # of Minutes Spent Total Time Spent with Patient: Total time spent is greater than 50% in coordination of care (as documented) at patient's floor/unit and/or counseling patient: Coding Level of Care Code 59664 Initial Inpt Care Lvl 3 Diagnoses Acute and chronic respiratory failure with hypoxia J96.21 Lower extremity edema R60.0 Pleural effusion J90 CKD (chronic kidney disease) stage 3, GFR 30-59 ml/min N18.3 Diabetes mellitus, type 2 E11.9 HTN (hypertension) I10 Hyperlipidemia E78.5 Chronic silicosis J62.8
[2020-08-09] MEDS ORDERED: ALBUTEROL HFA 8 GM INHALER INH PRN (00:33)
[2020-08-09] MEDS ORDERED: PIPERACILL/TAZOBAC CONSULT ACTIVE PRN (00:33)
[2020-08-09] MEDS ORDERED: VANCOMYCIN CONSULT ACTIVE PRN (00:33)
[2020-08-09] MEDS ORDERED: ONDANSETRON INJ 2 MG/ML 2 ML VIAL IV PRN (00:33)
[2020-08-09] MEDS ORDERED: VANCOMYCIN HCL 2,000 MG in SODIUM CHLORIDE 0.9% 500 ML IV STA (01:17)
[2020-08-09] MEDS: QUEtiapine FUMARATE 25 MG TABLET PO SCH ×3 (01:31→19:51)
[2020-08-09] MEDS: PIPERACILLIN/TAZOBACTAM 3.375 GM in DEXTROSE 5% 100 ML IV SCH ×3 (01:31→17:06)
[2020-08-09] MEDS: ENOXAPARIN INJ 40 MG/0.4 ML SYR SQ SCH ×2 (02:17→19:50)
[2020-08-09] MEDS ORDERED: ACETAMINOPHEN 500 MG TAB PO PRN (04:02)
[2020-08-09] MEDS ORDERED: ACETAMINOPHEN 500 MG TAB ONE (04:09)
[2020-08-09 06:30] LABS: INR 1.2 (0.9-1.1); Prothrombin Time 12.4 Seconds (9.0-12.0)
[2020-08-09 06:42] LABS: Albumin Level 3.4 gm/dl (3.4-5.0); BUN Creatinine Ratio 26.1 (10-20); Calcium 8.7 mg/dl (8.5-10.1); Creatinine Clr Calc Pharmacy 34.7 ml/min; Est GFR (Non-African American) 39.7; Potassium 4.3 mmol/L (3.5-5.1)
[2020-08-09 06:45] LABS: Bilirubin,Total 0.7 mg/dl (0.2-1); Globulin 3.5 gm/dl (2.5-4.0); Total Protein 6.9 gm/dl (6.4-8.2)
[2020-08-09] MEDS: ALBUT/IPRATROP 3MG/0.5MG NEB 3 ML VIAL NEB SCH ×5 (07:11→19:06)
--- NOTE | 2020-08-09 07:15 | XRay Report ---
XR chest 1V portable CLINICAL HISTORY: SOB COMPARISON STUDY: 09/07/2019 FINDINGS: The heart is enlarged. There is a persistent 51 mm right perihilar mass. There is mild elev ation right hemidiaphragm. Bilateral interstitial opacities remain similar. There is a left subclavia n dual-chamber central venous pacemaker.[ IMPRESSION: 1. Persistent 5 cm right perihilar mass 2. Persistent bilateral interstitial pulmonary opacities 3. Elevation of the right hemidiaphragm ACT 112: Negative or not required by law. Electronically signed by: Darryl Mann M.D. 08/09/2020 7:14 AM
[2020-08-09 07:38] LABS: Basophils # (auto) 0.01 K/uL (0-0.2); Basophils % (auto) 0.1 %; Hematocrit (blood only) 36.5 % (42-52); Hemoglobin 11.7 g/dL (14.0-18.0); Immature Granulocytes # (auto) 0.02 K/uL (0.00-0.02); Immature Granulocytes % (auto) 0.2 %; Lymphocytes # (auto) 0.72 K/uL (1.2-3.4); Lymphocytes % (auto) 6.6 %; Mean Corpuscular Hemoglobin 29.2 pg (25-34); Mean Corpuscular Hgb Conc 32.1 g/dL (32-36); Mean Platelet Volume 10.6 fL (7.4-10.4); Monocytes # (auto) 0.28 K/uL (0.11-0.59); Monocytes % (auto) 2.6 %; Neutrophils # (auto) 9.86 K/uL (1.4-6.5); Neutrophils % (auto) 90.5 %; Platelet Count 153 K/uL (130-400); RDW Coefficient of Variation 14.8 % (11.5-14.5); Red Blood Count 4.01 M/uL (4.7-6.1); White Blood Count 10.89 K/uL (4.8-10.8)
[2020-08-09] MEDS: FLUTICASONE/VILANTEROL 200/25MCG 14 PUFFS/INHALER INH SCH (07:49)
[2020-08-09] MEDS: ASPIRIN 81 MG ECTAB PO SCH (07:50)
[2020-08-09] MEDS: BUMETANIDE 1 MG in SYRINGE 0 ML IV SCH ×2 (07:50→17:06)
[2020-08-09] MEDS: POTASSIUM CHLORIDE 10 MEQ TABCR PO SCH (07:51)
[2020-08-09] MEDS: CHOLECALCIFEROL 1,000 UNITS 25 MCG TAB PO SCH (07:51)
--- NOTE | 2020-08-09 09:16 | Electrocardiogram Report ---
Test Reason : Blood Pressure : / mmHG Vent. Rate : 080 BPM Atrial Rate : 241 BPM P-R Int : 000 ms QRS Dur : 120 ms QT Int : 388 ms P-R-T Axes : 000 -59 096 degrees QTc Int : 447 ms Poor data quality, interpretation may be adversely affected Atrial fibrillation Left anterior fascicular block Left ventricular hypertrophy with QRS widening Abnormal ECG When compared with ECG of 07-SEP-2019 18:32, Electronic ventricular pacemaker no longer present Confirmed by Javier Moon ([id number]) on 08/09/2020 9:16:32 AM Referred By: REFERRED SELF Confirmed By:Javier Moon
--- NOTE | 2020-08-09 09:55 | Pulmonary Consultation ---
Date of Consultation August 09, 2020 Assessment & Plan (1) Respiratory failure, acute: Respiratory failure complication: unspecified whether with hypoxia or hypercapnia Qualified Code(s): J96.00 - Acute respiratory failure, unspecifi ed whether with hypoxia or hypercapnia (2) Dyspnea: Dyspnea type: unspecified Qualified Code(s): R06.00 - Dyspnea, unspecified (3) Lung mass: Impression: 85-year-old male with history of chronic silicosis and stable to very slightly enlarged right perihilar mass. The patient has declined evaluation for this previously and given his advanced age and medical comorbidities, I do not think he is a candidate for any aggressive interventions at this point time. He does have adenopathy on his prior CT scans. He was admitted with respiratory distress likely secondary to diastolic dysfunction superimposed on hypertension. He appears to be returning back to his baseline. Recommendations: 1. Abnormal CT scan: The patient's findings were reviewed with him. He again declines any evaluation for this lung mass at this point time and given his advanced age and medical comorbidities I believe that is reasonable. Would not recommend serial imaging or additional follow-up at this time. 2. Hypoxemic respiratory failure: Multifactorial due to commendations of diastolic dysfunction and hypertensive urgency as well as interstitial lung disease. Continue oxygen as tolerated. 3. No indication for thymic steroids based on my evaluation. The patient was placed on Zosyn and vancomycin. Can de escalate abx to rocephin and azithromycin - defer to primary service. We will check a sputum culture and if that is negative would wean antibiotics fairly rapidly. Recommend checking BMP level and considering diuresis although this may be complicated due to the patient's underlying chronic kidney disease. I agree with DNR/DNI status. History of Present Illness Attending Physician: Malorie Theodore DO History of Present Illness Asked by hospitalist to evaluate this patient with chronic silicosis in an abnormal CT scan. Patient had been seen for a pulmonary consultation about a year ago for very similar findings. This 85-year-old male with a history of silicosis and abnormal CT scan who has been followed in the outpatient setting by Dr. Singh presented to the emergency room with increasing shortness of breath. He had a chest x-ray performed which revealed a 5 cm right perihilar mass which did not appear appreciably changed from prior x-rays. He has declined evaluation for this in the past and was felt to be likely secondary to his chronic silicosis. He was treated with Nitropaste for an elevated blood pressure. He has known diastolic heart failure. He was seen this morning and states that his breathing is about the same. He is not coughing or expectorating phlegm. No hemoptysis. No fevers chills or night sweats. Allergies Allergy/AdvReac Type Severity Reaction Status Date / Time No Known Allergies Allergy Verified 08/08/20 21:51 Home Medications Medication Instructions Recorded Confirmed Type Centrum Silver 1 tab PO QAM 10/25/18 08/08/20 History Symbicort 2 puff INHALATION BID 10/25/18 09/07/19 History albuterol sulfate [Ventolin HFA] 2 puff INHALATION Q6H PRN 10/25/18 08/08/20 History cholecalciferol (vitamin D3) 1,000 unit PO QAM 10/25/18 08/08/20 History [Vitamin D3] prazosin 2 mg PO HS 10/25/18 08/08/20 History metformin 1,000 mg PO BID #60 tab 10/26/18 08/08/20 Rx aspirin 81 mg PO DAILY 09/07/19 08/08/20 History magnesium oxide 420 mg PO BID 09/07/19 08/08/20 History simvastatin 20 mg PO HS 09/07/19 08/08/20 History alogliptin 6.25 mg PO DAILY 08/08/20 08/08/20 History budesonide-formoterol 2 puff INHALATION BID 08/08/20 08/08/20 History bumetanide 1 mg PO DAILY 08/08/20 08/08/20 History potassium chloride 10 meq PO DAILY 08/08/20 08/08/20 History quetiapine 25 mg PO BID 08/08/20 08/08/20 History Patient History Medical History (Updated 08/09/20 @ 04:29 by Arsenio Leslie MD) Anemia Asthma BPH (benign prostatic hyperplasia) Chronic silicosis Diabetes mellitus, type 2 NIDDM Epistaxis GI bleed H/O H/O cardiac pacemaker 09/01/2014, FOLLOWS WITH DR ARRIAGA ([place]). LAST CHECKED JUNE 24, 2018. Hearing deficit BILATERAL AIDES HTN (hypertension) Hyperlipidemia Surgical History H/O inguinal hernia repair H/O sinus surgery ENDOCAUTERY (30 YEARS AGO) History of colonoscopy History of esophagogastroduodenoscopy (EGD) History of herniorrhaphy RIGHT & LEFT INGUINAL HERNIA REPAIR History of orchiectomy RIGHT Family History Mother Family history of diabetes mellitus Other Dyslipidemia Hypertension Social History Smoking Status: Never smoker Second Hand Exposure: No; Hx Alcohol Use: No Hx Substance Use: No Preferred Language: Armenian Communication Ability: Effective Swager Operator Required: No Beliefs That Will Affect Care: None Current Living Situation: Family Other Information That Helps Us Care for You: No Feels Safe at Home: Yes Safety Concerns: Feels Safe At This Time Assistive Devices: Denture - Upper, Glasses and Oxygen - Continuous Review of Systems Review of Systems: All systems reviewed & are unremarkable except as noted in HPI & below Physical Exam Physical Exam: The patient is awake, on BiPAP, otherwise normocephalic and atraumatic. HEENT--PERRL, EOMI, mucous membranes and oropharynx dry. Neck--supple. No JVD. No bruits. Thyroid normal, trachea midline, no adenopat hy. Heart--normal S1 and S2. No murmurs, rubs or gallops. Lungs--coarse breath sounds bilaterally. No respiratory distress or accessory muscle use on BiPAP Abdomen--normal bowel sounds and soft. Nontender. Nondistended. Extremities--no cyanosis or clubbing. There is 2+ bilateral pretibial pitting edema Dermatologic--normal skin turgor, normal color, no abnormal lymph nodes, no rash. Neurologic--cranial nerves II through XII grossly intact. Rheumatologic--limited exam Psychiatric--normal affect. Results & Data Results & Data ([facility]) Vital Signs (Past 12 Hours) Vital Signs Temp Pulse Pulse Pulse Pulse Resp BP 08/09/20 08:00 36.6 C 76 94 H 18 08/09/20 07:11 60 60 17 08/09/20 03:19 36.8 C 68 28 H 08/09/20 03:09 61 28 H 08/09/20 01:41 79 31 H 08/09/20 01:02 70 12/07/20 00:15 36.5 C 75 28 H 08/08/20 23:30 66 26 H 164/84 H 08/08/20 23:00 146/77 H 08/08/20 22:30 60 19 124/65 08/08/20 22:02 65 25 H 149/71 H BP BP Pulse Ox 08/09/20 08:00 149/74 H 95 08/09/20 07:11 96 08/09/20 03:19 147/85 H 97 08/09/20 03:09 100 08/09/20 01:41 95 08/09/20 01:02 08/09/20 00:15 155/78 H 99 08/08/20 23:30 99 08/08/20 23:00 100 08/08/20 22:30 100 08/08/20 22:02 100 Laboratory Results 08/09/20 05:46 08/09/20 05:40 Diagnostic Findings Patient's chest x-ray was independently reviewed and compared to prior chest x- rays and CT scans from a year ago there is elevation of the right hemidiaphragm with interstitial markings unchanged from prior and the 5 cm right perihilar mass. The CT scan from September 2019 had demonstrated some mild progression with progressive adenopathy and small bilateral pleural effusions with some bronchial wall thickening/narrowing PG Care Time/CCT Total # of Minutes Spent Total Time Spent with Patient: Total time spent is greater than 50% in coordination of care (as documented) at patient's floor/unit and/or counseling patient: Coding Level of Care Code 51034 Initial Inpt Care Lvl 3 Diagnoses Respiratory failure, acute J96.00 Respiratory failure complication: unspecified whether with hypoxia or hypercapnia Dyspnea R06.00 Dyspnea type: unspecified Lung mass R91.8
--- NOTE | 2020-08-09 11:11 | Pharmacy Report ---
Pharmacy Abx Dose Short Note - Date of Service August 09, 2020 - Assessment & Plan Assessment 85 year old M receiving vancomycin and Zosyn for treatment of pneumonia Day # 1 of antimicrobial therapy. Plan Vancomycin Patient meets criteria for vancomycin AUC dosing nomogram AUC/HI is the preferred PK/PD target for vancomycin * Target AUC/HI = 400-600 * AUC guided dosing is effective and associated with decreased risk of nephrotoxicity Zosyn 3.375 gm IV x 1 followed by Zosyn 3.375 gm IV q8 hours Pharmacy will continue to follow and will adjust dose/frequency as necessary. Thank you.
[2020-08-09] MEDS ORDERED: GLUCOSE 10 TABS/TUBE PO PRN (15:28)
[2020-08-09] MEDS ORDERED: DEXTROSE 50% 50 ML SYRINGE IV PRN (15:28)
[2020-08-09] MEDS ORDERED: CARBOHYDRATES FOR HYPOGLYCEMIA PO PRN (15:28)
[2020-08-09] MEDS ORDERED: GLUCAGON FOR INJ 1 MG VIAL SQ PRN (15:28)
[2020-08-09] MEDS ORDERED: GLUCOSE 40% GEL 15 GM TUBE PO PRN (15:28)
--- NOTE | 2020-08-09 15:31 | Hospitalist Progress Note ---
Date of Service August 09, 2020 Assessment & Plan (1) Acute and chronic respiratory failure with hypoxia: Acute on chronic respiratory failure with hypoxia/lower extreme edema/pleural effusion- The patient will be admitted to telemetry for serial cardiac enzymes, serial EKG's, cardiac rhythm monitoring. Given furosemide 40 mg IV in the ED. Admitted on bumetanide 1 mg IV twice daily. Hold oral bumetanide Continue potassium chloride and magnesium oxide Trop 0.029 on admission, repeat unchanged EKG noted to be in rate controlled afib, which is stable from prior Upper airway excretions noted, add mucomyst 08/09 (2) Lower extremity edema: See above, states it is at his usual LE swelling now (08/09) WCC pending for LE ulcerations (3) Pleural effusion: See above (4) CKD (chronic kidney disease) stage 3, GFR 30-59 ml/min: Creatinine 1.59 upon admission, with range 1.25-1.88 Follow serially (5) Diabetes mellitus, type 2: Hold alogliptin and Metformin. Placed on Accu-Cheks before meals and at bedtime with NovoLog coverage per scale (6) HTN (hypertension): Continue aspirin. (7) Hyperlipidemia: Continue simvastatin 20 mg at bedtime (8) Chronic silicosis: Ventolin HFA 2 puffs every 6 hours as needed Admission and Anticipated Discharge Date Admission Date: August 08, 2020 Subjective Pt states he feels his SOB is better. He has been tolerating PO. Pt denies fever, chest pain, abd pain, n/v/c/d, LE pain. He has baseline LE swelling that is at its usual. Review of Systems Review of Systems: Pertinent positives and negatives reviewed in HPI--all others negative Physical Exam Constitutional: WD/WN, vitals as above Eyes: normal visual calloway by confrontation and + anicteric sclerae Neck: normal visual inspection and trachea midline Respiratory: normal respiratory effort; no respiratory distress Auscultation: + crackles; + lungs not clear to auscultation (upper airway sounds noted) and no wheezes Cardiovascular: Rate/Rhythm: regular rate and regular rhythm Extremities: + edema (b/l LE swelling) Gastrointestinal (Abdomen): Inspection/Auscultation: abdomen not distended Percussion/Palpation: abdomen soft; abdomen nontender Musculoskeletal: Head/Neck/Chest: normocephalic and head atraumatic peripheral pulses intact Skin: no rashes, warm and dry + ulcer (multiple areas noted) and + wound (multiple areas noted) Neurologic: awake; not confused Speech / Cognition: normal speech Psychiatric: A+Ox3, euthymic affect Results & Data Results & Data ([facility]) Vital Signs (Past 12 Hours) Vital Signs Temp Pulse Pulse Pulse Pulse Resp BP 08/09/20 15:21 36.7 C 62 16 165/79 H 08/09/20 15:04 62 25 H 08/09/20 12:51 36.8 C 71 22 147/66 H 08/09/20 10:59 66 23 08/09/20 10:54 72 28 H 08/09/20 08:00 36.6 C 76 94 H 18 149/74 H 08/09/20 07:11 60 60 17 Pulse Ox 08/09/20 15:21 98 08/09/20 15:04 98 08/09/20 12:51 92 08/09/20 10:59 100 08/09/20 10:54 99 08/09/20 08:00 95 08/09/20 07:11 96 PG Care Time/CCT Total # of Minutes Spent Total Time Spent with Patient: Total time spent is greater than 50% in coordination of care (as documented) at patient's floor/unit and/or counseling patient: Coding Level of Care Code 75619 Subseq Hosp Care Lvl 3 Diagnoses Acute and chronic respiratory failure with hypoxia J96.21 Lower extremity edema R60.0 Pleural effusion J90 CKD (chronic kidney disease) stage 3, GFR 30-59 ml/min N18.3 Diabetes mellitus, type 2 E11.9 HTN (hypertension) I10 Hyperlipidemia E78.5 Chronic silicosis J62.8
[2020-08-09] MEDS: INSULIN ASPART 100 UNITS/ML 3 ML PEN SC SCH ×2 (17:02→20:34)
[2020-08-09] MEDS ORDERED: AZITHROMYCIN 500 MG in DEXTROSE 5% 250 ML IV ONE (17:45)
[2020-08-09] MEDS: cefTRIAXone SODIUM 2,000 MG in DEXTROSE 5% 50 ML IV SCH (18:09)
[2020-08-09] MEDS: ACETYLCYSTEINE 20% INHAL SOLN 4ML ***DISPENSED BY RESP. INH SCH (19:06)
[2020-08-09] MEDS: SIMVASTATIN 20 MG TAB PO SCH (19:51)
[2020-08-09] MEDS: PRAZOSIN HCL 1 MG CAP PO SCH (19:51)
[2020-08-10] MEDS ORDERED: VANCOMYCIN HCL 1,500 MG in SODIUM CHLORIDE 0.9% 500 ML IV SCH (04:00)
[2020-08-10] MEDS: ACETYLCYSTEINE 20% INHAL SOLN 4ML ***DISPENSED BY RESP. INH SCH ×2 (07:17→19:23)
[2020-08-10] MEDS: ALBUT/IPRATROP 3MG/0.5MG NEB 3 ML VIAL NEB SCH ×4 (07:17→19:23)
[2020-08-10 07:29] LABS: Basophils # (auto) 0.01 K/uL (0-0.2); Basophils % (auto) 0.1 %; Hematocrit (blood only) 37.6 % (42-52); Immature Granulocytes # (auto) 0.03 K/uL (0.00-0.02); Immature Granulocytes % (auto) 0.3 %; Lymphocytes # (auto) 0.55 K/uL (1.2-3.4); Mean Corpuscular Hemoglobin 29.3 pg (25-34); Mean Corpuscular Hgb Conc 31.9 g/dL (32-36); Mean Corpuscular Volume 91.7 fL (80-100); Mean Platelet Volume 11.1 fL (7.4-10.4); Monocytes # (auto) 0.49 K/uL (0.11-0.59); Monocytes % (auto) 5.4 %; Neutrophils # (auto) 8.05 K/uL (1.4-6.5); Neutrophils % (auto) 88.2 %; Platelet Count 148 K/uL (130-400); RDW Coefficient of Variation 14.8 % (11.5-14.5); RDW Standard Deviation 50.1 fL (36.4-46.3); White Blood Count 9.13 K/uL (4.8-10.8)
[2020-08-10 07:40] LABS: INR 1.2 (0.9-1.1); Partial Thromboplastin Ratio 1.1; Partial Thromboplastin Time 31.2 Seconds (21.0-31.0); Prothrombin Time 12.9 Seconds (9.0-12.0)
[2020-08-10 08:01] LABS: Albumin Level 3.3 gm/dl (3.4-5.0); BUN Creatinine Ratio 28.5 (10-20); Calcium 9.2 mg/dl (8.5-10.1); Creatinine Clr Calc Pharmacy 29.7 ml/min; Est GFR (African American) 38.1; Est GFR (Non-African American) 32.9; Potassium 3.7 mmol/L (3.5-5.1)
[2020-08-10 08:04] LABS: Albumin Globulin Ratio 0.9 (0.9-2); Bilirubin,Total 0.6 mg/dl (0.2-1); Globulin 3.7 gm/dl (2.5-4.0)
[2020-08-10] MEDS: QUEtiapine FUMARATE 25 MG TABLET PO SCH ×2 (09:03→20:15)
[2020-08-10] MEDS: FLUTICASONE/VILANTEROL 200/25MCG 14 PUFFS/INHALER INH SCH (09:03)
[2020-08-10] MEDS: CHOLECALCIFEROL 1,000 UNITS 25 MCG TAB PO SCH (09:03)
[2020-08-10] MEDS: POTASSIUM CHLORIDE 10 MEQ TABCR PO SCH (09:03)
[2020-08-10] MEDS: ASPIRIN 81 MG ECTAB PO SCH (09:04)
[2020-08-10] MEDS: BUMETANIDE 1 MG in SYRINGE 0 ML IV SCH ×2 (09:05→17:32)
[2020-08-10] MEDS: INSULIN ASPART 100 UNITS/ML 3 ML PEN SC SCH ×4 (09:07→21:11)
--- NOTE | 2020-08-10 09:28 | Pulmonology Progress Note ---
Date of Service August 10, 2020 Assessment & Plan (1) Respiratory failure, acute: Respiratory failure complication: unspecified whether with hypoxia or hypercapnia Qualified Code(s): J96.00 - Acute respiratory failure, unspecified whether with hypoxia or hypercapnia (2) Dyspnea: Dyspnea type: unspecified Qualified Code(s): R06.00 - Dyspnea, unspecified (3) Lung mass: Impression: 85-year-old male with history of chronic silicosis and stable to very slightly enlarged right perihilar mass. The patient has declined evaluation for this previously and given his advanced age and medical comorbidities, I do not think he is a candidate for any aggressive interventions at this point time. He does have adenopathy on his prior CT scans. He was admitted with respiratory distress likely secondary to diastolic dysfunction superimposed on hypertension. He appears to be returning back to his baseline. Recommendations: 1. Abnormal CT scan: As per previous note. The patient has declined any evaluation from this and it likely represents sequelae of his occupational lung disease/chronic silicosis. 2. Hypoxemic respiratory failure: Multifactorial due to commendations of diastolic dysfunction and hypertensive urgency as well as interstitial lung disease. Continue oxygen as tolerated. 3. No indication for thymic steroids based on my evaluation. The patient was placed on Zosyn and vancomycin. Deescalated to Rocephin and azithromycin. Can change azithromycin to oral. White count now normal. 4. Patient uses CPAP at home. He can bring his home unit and for use in the hospital or continue to use our unit. 5. BNP is significantly elevated. He does have a significant murmur currently but his echocardiogram from October 2018 did not show any significant valvular disease. 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 I would recommend diuresis as tolerated by his kidney function.. I agree with DNR/DNI status. Available to see if needed. Please call if we can be of additional assistance. Admission and Anticipated Discharge Date Admission Date: August 08, 2020 Subjective Patient seen and examined. He is doing well. He reports his breathing is at baseline. He is not oxygen dependent at home but his oxygen saturations have improved. He is coughing and expectorating small amounts of phlegm. No hemoptysis. He used BiPAP overnight. He does use BiPAP at home. Review of Systems Review of Systems: All systems reviewed & are unremarkable except as noted in HPI & below Physical Exam Constitutional: WD/WN, vitals as above Neck: trachea midline, no thyromegaly Respiratory: normal respiratory effort, lungs clear to auscultation Cardiovascular: Heart Sounds: normal S1, normal S2 and + murmur Extremi ties: + edema Gastrointestinal (Abdomen): normal bowel sounds, soft, nontender, no hepatosplenomegaly Musculoskeletal: Extremities: extremities normal to inspection Skin: no rashes, warm and dry Neurologic: Nonfocal exam Lymphatic: no cervical lymphadenopathy Results & Data Results & [facility] ([facility]) Vital Signs (Past 12 Hours) Vital Signs Temp Pulse Resp BP Pulse Ox 08/10/20 07:45 36.6 C 60 22 152/65 H 95 08/10/20 07:17 60 23 98 08/10/20 04:01 36.4 C L 60 18 121/68 99 08/09/20 23:18 36.7 C 66 20 125/63 96 Laboratory Results 08/10/20 06:34 08/10/20 06:34 PG Care Time/CCT Total # of Minutes Spent Total Time Spent with Patient: Total time spent is greater than 50% in coordination of care (as documented) at patient's floor/unit and/or counseling patient: Coding Level of Care Code 51595 Subseq Hosp Care Lvl 2 Diagnoses Respiratory failure, acute J96.00 Respiratory failure complication: unspecified whether with hypoxia or hypercapnia Dyspnea R06.00 Dyspnea type: unspecified Lung mass R91.8
[2020-08-10] MEDS: AZITHROMYCIN 250 MG TAB PO SCH (09:55)
[2020-08-10] MEDS ORDERED: AZITHROMYCIN 250 MG in DEXTROSE 5% 250 ML IV SCH (12:00)
--- NOTE | 2020-08-10 14:31 | Hospitalist Progress Note ---
Date of Service August 10, 2020 Assessment & Plan (1) Acute and chronic respiratory failure with hypoxia: Acute on chronic respiratory failure with hypoxia/lower extreme edema/pleural effusion- The patient will be admitted to telemetry for serial cardiac enzymes, serial EKG's, cardiac rhythm monitoring. Given furosemide 40 mg IV in the ED. Admitted on bumetanide 1 mg IV twice daily. Hold oral bumetanide Continue potassium chloride and magnesium oxide Trop 0.029 on admission, repeat unchanged EKG noted to be in rate controlled afib, which is stable from prior Upper airway excretions noted, add mucomyst 08/09 PNA noted on admission, started on vanco/zosyn Changed to rocephin/azithro on 08/09 acute HFpEF noted on admission Slight increase in cr but still around pt's baseline range, will monitor and if again increased tomorrow, t/c decrease bumex dosing Hx of lung mass, pt has declined evaluation in the past and did so again during this admission (2) Lower extremity edema: See above, states it is at his usual LE swelling on 08/09, however further improved on 08/10 WCC for LE ulcerations (3) Pleural effusion: See above (4) CKD (chronic kidney disease) stage 3, GFR 30-59 ml/min: Creatinine 1.59 upon admission, with range 1.25-1.88 Follow serially (5) Diabetes mellitus, type 2: Hold alogliptin and Metformin. Placed on Accu-Cheks before meals and at bedtime with NovoLog coverage per scale (6) HTN (hypertension): Continue aspirin. (7) Hyperlipidemia: Continue simvastatin 20 mg at bedtime (8) Chronic silicosis: Ventolin HFA 2 puffs every 6 hours as needed Admission and Anticipated Discharge Date Admission Date: August 08, 2020 Subjective Pt again notes feeling improved. Denies SOB at rest, but had not been OOB yet during our discussion. Tolerating PO without issue. Pt denies fever, chest pain, abd pain, n/v/c/d, LE pain. LE swelling again noted, feels it is somewhat improved. Review of Systems Review of Systems: Pertinent positives and negatives reviewed in HPI--all others negative Physical Exam Constitutional: WD/WN, vitals as above Eyes: normal visual calloway by confrontation and + anicteric sclerae Neck: normal visual inspection and trachea midline Respiratory: normal respiratory effort; no respiratory distress Auscultation: + crackles; + lungs not clear to auscultation (upper airway sounds resolved with only crackles now) and no wheezes Cardiovascular: Rate/Rhythm: regular rate and regular rhythm Extremities: + edema (b/l LE swelling improving) Gastrointestinal (Abdomen): Inspection/Auscultation: abdomen not distended Percussion/Palpation: abdomen soft; abdomen nontender Musculoskeletal: Head/Neck/Chest: normocephalic and head atraumatic Skin: no rashes, warm and dry + ulcer (multiple areas noted) and + wound (multiple areas noted) Neurologic: awake; not confused Speech / Cognition: normal speech Psychiatric: A+Ox3, euthymic affect Results & Data Results & Data ([facility]) Vital Signs (Past 12 Hours) Vital Signs Temp Pulse Resp BP Pulse Ox 08/10/20 12:09 36.8 C 74 20 151/73 H 95 08/10/20 11:11 61 22 94 08/10/20 07:45 36.6 C 60 22 152/65 H 95 08/10/20 07:17 60 23 98 08/10/20 04:01 36.4 C L 60 18 121/68 99 PG Care Time/CCT Total # of Minutes Spent Total Time Spent with Patient: Total time spent is greater than 50% in coordination of care (as documented) at patient's floor/unit and/or counseling patient: Coding Level of Care Code 26130 Subseq Hosp Care Lvl 3 Diagnoses Acute and chronic respiratory failure with hypoxia J96.21 Lower extremity edema R60.0 Pleural effusion J90 CKD (chronic kidney disease) stage 3, GFR 30-59 ml/min N18.3 Diabetes mellitus, type 2 E11.9 HTN (hypertension) I10 Hyperlipidemia E78.5 Chronic silicosis J62.8
[2020-08-10] MEDS: PRAZOSIN HCL 1 MG CAP PO SCH (20:15)
[2020-08-10] MEDS: ENOXAPARIN INJ 40 MG/0.4 ML SYR SQ SCH (20:15)
[2020-08-10] MEDS: SIMVASTATIN 20 MG TAB PO SCH (20:16)
[2020-08-10] MEDS: cefTRIAXone SODIUM 2,000 MG in DEXTROSE 5% 50 ML IV SCH (20:38)
[2020-08-10] MEDS ORDERED: diphenhydrAMINE 50 MG/ML VIAL IV STA (22:39)
[2020-08-10] MEDS ORDERED: LORazepam 1 MG/2 ML VIAL IV STA (22:41)
[2020-08-10] MEDS ORDERED: LORazepam 2 MG/4 ML VIAL ONE (22:45)
[2020-08-11] MEDS ORDERED: LORazepam 1 MG/2 ML VIAL IV STA (03:33)
[2020-08-11] MEDS ORDERED: LORazepam 2 MG/4 ML VIAL ONE (03:34)
[2020-08-11] MEDS: ACETYLCYSTEINE 20% INHAL SOLN 4ML ***DISPENSED BY RESP. INH SCH (07:01)
[2020-08-11] MEDS: ALBUT/IPRATROP 3MG/0.5MG NEB 3 ML VIAL NEB SCH ×4 (07:01→18:53)
[2020-08-11] MEDS: BUMETANIDE 1 MG in SYRINGE 0 ML IV SCH (07:45)
[2020-08-11] MEDS: INSULIN ASPART 100 UNITS/ML 3 ML PEN SC SCH ×4 (07:47→22:32)
--- NOTE | 2020-08-11 10:12 | XRay Report ---
XR chest 1V portable HISTORY: 85 years-old Male SOB acute shortness of breath COMPARISON: Chest radiograph 08/09/2020, CTA of the chest 08/07/2020 TECHNIQUE: Portable AP view of the chest FINDINGS: Cardiac silhouette is enlarged. Left subclavian pacer. Calcified plaque of the thoracic aorta. Unchan ged right hemidiaphragmatic elevation. 5 cm right perihilar mass redemonstrated. Left hilar prominenc e is redemonstrated. There is chronic reticular nodular opacities with progressively worsened interst itial coarsening with patchy alveolar densities. Is small pleural effusions. Degenerative changes of the shoulders and spine. Healed remote left clavicular fracture deformity. IMPRESSION: 1. 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 2. Progressively worsened bilateral mixed interstitial and alveolar opacities may reflect superimpose d pulmonary edema and/or pneumonia. 3. Small pleural effusions. ACT 112: Negative or not required by law. The above report was generated using voice recognition software. It may contain grammatical, syntax o r spelling errors. Electronically signed by: Kong Ko M.D. 08/11/2020 10:10 AM
[2020-08-11] MEDS: POTASSIUM CHLORIDE 10 MEQ TABCR PO SCH (10:48)
[2020-08-11] MEDS: CHOLECALCIFEROL 1,000 UNITS 25 MCG TAB PO SCH (10:48)
[2020-08-11] MEDS: QUEtiapine FUMARATE 25 MG TABLET PO SCH ×2 (10:48→20:40)
[2020-08-11] MEDS: AZITHROMYCIN 250 MG TAB PO SCH (10:48)
[2020-08-11] MEDS: FLUTICASONE/VILANTEROL 200/25MCG 14 PUFFS/INHALER INH SCH (10:48)
[2020-08-11] MEDS: ASPIRIN 81 MG ECTAB PO SCH (10:48)
[2020-08-11 11:04] LABS: Basophils # (auto) 0.01 K/uL (0-0.2); Basophils % (auto) 0.1 %; Eosinophils # (auto) 0.01 K/uL (0-0.5); Eosinophils % (auto) 0.1 %; Hematocrit (blood only) 39.3 % (42-52); Hemoglobin 12.3 g/dL (14.0-18.0); Immature Granulocytes # (auto) 0.02 K/uL (0.00-0.02); Immature Granulocytes % (auto) 0.3 %; Lymphocytes # (auto) 0.34 K/uL (1.2-3.4); Lymphocytes % (auto) 4.5 %; Mean Corpuscular Hemoglobin 28.9 pg (25-34); Mean Corpuscular Hgb Conc 31.3 g/dL (32-36); Mean Corpuscular Volume 92.5 fL (80-100); Mean Platelet Volume 10.5 fL (7.4-10.4); Monocytes # (auto) 0.25 K/uL (0.11-0.59); Monocytes % (auto) 3.3 %; Neutrophils # (auto) 6.98 K/uL (1.4-6.5); Neutrophils % (auto) 91.7 %; Platelet Count 151 K/uL (130-400); RDW Coefficient of Variation 14.9 % (11.5-14.5); RDW Standard Deviation 50.4 fL (36.4-46.3); Red Blood Count 4.25 M/uL (4.7-6.1); White Blood Count 7.61 K/uL (4.8-10.8)
[2020-08-11 11:05] LABS: Eosinophils # (auto) 0.01 K/uL (0-0.5); Eosinophils % (auto) 0.1 %; Hematocrit (blood only) 39.1 % (42-52); Hemoglobin 12.2 g/dL (14.0-18.0); Immature Granulocytes # (auto) 0.02 K/uL (0.00-0.02); Immature Granulocytes % (auto) 0.3 %; Lymphocytes # (auto) 0.29 K/uL (1.2-3.4); Lymphocytes % (auto) 3.7 %; Mean Corpuscular Hemoglobin 28.8 pg (25-34); Mean Corpuscular Hgb Conc 31.2 g/dL (32-36); Mean Corpuscular Volume 92.4 fL (80-100); Mean Platelet Volume 10.7 fL (7.4-10.4); Monocytes % (auto) 3.9 %; Neutrophils # (auto) 7.14 K/uL (1.4-6.5); Platelet Count 163 K/uL (130-400); RDW Coefficient of Variation 14.8 % (11.5-14.5); Red Blood Count 4.23 M/uL (4.7-6.1); White Blood Count 7.76 K/uL (4.8-10.8)
[2020-08-11 11:19] LABS: INR 1.2 (0.9-1.1); Partial Thromboplastin Time 29.2 Seconds (21.0-31.0); Prothrombin Time 12.4 Seconds (9.0-12.0)
[2020-08-11 11:22] LABS: Albumin Level 3.2 gm/dl (3.4-5.0); BUN Creatinine Ratio 33.6 (10-20); Calcium 8.8 mg/dl (8.5-10.1); Creatinine Clr Calc Pharmacy 29.7 ml/min; Est GFR (African American) 38.6; Est GFR (Non-African American) 33.3; Magnesium 2.2 mg/dl (1.8-2.4); Potassium 3.8 mmol/L (3.5-5.1)
[2020-08-11 11:28] LABS: Albumin Globulin Ratio 0.8 (0.9-2); Bilirubin,Total 0.4 mg/dl (0.2-1); Phosphorus 4.8 mg/dl (2.5-4.9); Total Protein 7.2 gm/dl (6.4-8.2); Troponin I 0.022 ng/ml (0-0.045)
--- NOTE | 2020-08-11 12:07 | Pulmonology Progress Note ---
Date of Service August 11, 2020 Assessment & Plan (1) Respiratory failure, acute: Respiratory failure complication: unspecified whether with hypoxia or hypercapnia Qualified Code(s): J96.00 - Acute respiratory failure, unspecified whether with hypoxia or hypercapnia (2) Dyspnea: Dyspnea type: unspecified Qualified Code(s): R06.00 - Dyspnea, unspecified (3) Lung mass: Impression: 85-year-old male with history of chronic silicosis and stable to very slightly enlarged right perihilar mass. The patient has declined evaluation for this previously and given his advanced age and medical comorbidities, I do not think he is a candidate for any aggressive interventions at this point time. He does have adenopathy on his prior CT scans. He was admitted with respiratory distress likely secondary to diastolic dysfunction superimposed on hypertension. He appears to be returning back to his baseline. Recommendations: 1. Abnormal CT scan: As per previous note. The patient has declined any evaluation from this and it likely represents sequelae of his occupational lung disease/chronic silicosis. 2. Hypoxemic respiratory failure: Multifactorial due to commendations of diastolic dysfunction and hypertensive urgency as well as interstitial lung disease. Continue oxygen as tolerated. 3. No indication for thymic steroids based on my evaluation. The patient was placed on Zosyn and vancomycin. Deescalated to Rocephin and azithromycin. Can change azithromycin to oral. White count now normal. 4. Patient uses CPAP at home. He can bring his home unit and for use in the hospital or continue to use our unit. 5. BNP is significantly elevated. He does have a significant murmur currently but his echocardiogram from October 2018 did not show any significant valvular disease. 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 I would recommend diuresis as tolerated by his kidney function.. I agree with DNR/DNI status. Pulmonary will sign off at this time. The patient can follow-up with Dr. Singh in the outpatient setting. Admission and Anticipated Discharge Date Admission Date: August 08, 2020 Subjective Patient offers no new complaints. His breathing is stable Review of Systems Review of Systems: Unchanged from prior Physical Exam Constitutional: WD/WN, vitals as above Neck: trachea midline, no thyromegaly Respiratory: normal respiratory effort, lungs clear to auscultation Cardiovascular: Heart Sounds: normal S1, normal S2 and + murmur Extremities: + edema Gastrointestinal (Abdomen): normal bowel sounds, soft, nontender, no hepatosplenomegaly Musculoskeletal: Extremities: extremities normal to inspection Skin: no rashes, warm and dry Lymphatic: no cervical lymphadenopathy Results & Data Results & Data ([facility]) Vital Signs (Past 12 Hours) Vital Signs Temp Pulse Pulse Resp BP Pulse Ox 08/11/20 11:12 78 78 16 94 08/11/20 10:34 66 20 96 08/11/20 08:26 36.3 C L 74 19 151/69 H 99 08/11/20 07:02 75 21 98 08/11/20 03:40 36.5 C 80 23 155/73 H 95 08/11/20 01:35 60 Laboratory Results 08/11/20 10:44 08/11/20 10:44 Diagnostic Findings No new imaging PG Care Time/CCT Total # of Minutes Spent Total Time Spent with Patient: Total time spent is greater than 50% in coordination of care (as documented) at patient's floor/unit and/or counseling patient: Coding Level of Care Code 81121 Subseq Hosp Care Lvl 2 Diagnoses Respiratory failure, acute J96.00 Respiratory failure complication: unspecified whether with hypoxia or hypercapnia Dyspnea R06.00 Dyspnea type: unspecified Lung mass R91.8
--- NOTE | 2020-08-11 14:13 | Electrocardiogram Report ---
Test Reason : Blood Pressure : / mmHG Vent. Rate : 075 BPM Atrial Rate : 082 BPM P-R Int : 000 ms QRS Dur : 114 ms QT Int : 408 ms P-R-T Axes : 000 -71 080 degrees QTc Int : 455 ms Poor data quality, interpretation may be adversely affected Atrial fibrillation with occasional ventricular-paced complexes Left anterior fascicular block Abnormal ECG When compared with ECG of 08-AUG-2020 20:22, Electronic ventricular pacemaker has replaced Atrial fibrillation Confirmed by Javier Moon ([id number]) on 08/11/2020 2:13:19 PM Referred By: REFERRED SELF Confirmed By:Javier Moon
[2020-08-11] MEDS ORDERED: MoRPHine SULFATE 2 MG/ML CARP IV STA (14:20)
[2020-08-11] MEDS ORDERED: MoRPHine SULFATE 2 MG/ML CARP ONE (14:28)
[2020-08-11] MEDS ORDERED: DEXTROSE 5% IV SCH (14:30)
[2020-08-11] MEDS ORDERED: BUMETANIDE IV SCH (14:30)
[2020-08-11] MEDS ORDERED: RACEPINEPHRINE 2.25% NEBU SOLN 0.5 ML VIAL NEB STA (14:39)
[2020-08-11] MEDS: BUMETANIDE 4 MG in SYRINGE 0 ML IV SCH (16:06)
[2020-08-11] MEDS: MoRPHine SULFATE 2 MG/ML CARP IV PRN ×2 (16:21→20:39)
--- NOTE | 2020-08-11 17:56 | Hospitalist Progress Note ---
Date of Service August 11, 2020 Assessment & Plan (1) Acute and chronic respiratory failure with hypoxia: Acute on chronic respiratory failure with hypoxia/lower extreme edema/pleural effusion- The patient will be admitted to telemetry for serial cardiac enzymes, serial EKG's, cardiac rhythm monitoring. Given furosemide 40 mg IV in the ED. Admitted on bumetanide 1 mg IV twice daily. Hold oral bumetanide Continue potassium chloride and magnesium oxide Trop 0.029 on admission, repeat unchanged EKG noted to be in rate controlled afib, which is stable from prior Upper airway excretions noted, add mucomyst 08/09 PNA noted on admission, started on vanco/zosyn Changed to rocephin/azithro on 08/09 acute HFpEF noted on admission Slight increase in cr but still around pt's baseline range, will monitor and if again increased tomorrow, t/c decrease bumex dosing Hx of lung mass, pt has declined evaluation in the past and did so again during this admission Worsening O2 status this AM with hypoxia requiring higher O2 requirements CXR with worsening PNA Pulm recs for increased diuresis with change of nebs/inhalers Slowly improving (2) Lower extremity edema: See above, states it is at his usual LE swelling on 08/09, however further improved on 08/10 [facility] for LE ulcerations (3) Pleural effusion: See above (4) CKD (chronic kidney disease) stage 3, GFR 30-59 ml/min: Creatinine 1.59 upon admission, with range 1.25-1.88 Follow serially (5) Diabetes mellitus, type 2: Hold alogliptin and Metformin. Placed on Accu-Cheks before meals and at bedtime with NovoLog coverage per scale (6) HTN (hypertension): Continue aspirin. (7) Hyperlipidemia: Continue simvastatin 20 mg at bedtime (8) Chronic silicosis: Ventolin HFA 2 puffs every 6 hours as needed Admission and Anticipated Discharge Date Admission Date: August 08, 2020 Subjective Pt was very restless and SOB overnight. He was given ativan and has not been very interactive this AM. He has had increased O2 requirements and with ongoing SOB. CXR noted for progressive PNA. Labs stable from prior. Pt given increased bumex dosing and morphine and this has improved his status. He has been able to tolerate lower O2 on a facemask. Less restless and not taking off mask. Less SOB. Denies pain or SOB during discussion, however. Review of Systems Review of Systems: Pertinent positives and negatives reviewed in HPI--all others negative Physical Exam Constitutional: WD/WN, vitals as above Eyes: normal visual calloway by confrontation and + anicteric sclerae Neck: normal visual inspection and trachea midline Respiratory: + respiratory distress and + labored breathing; + abnormal respiratory effort Auscultation: + crackles; + lungs not clear to auscultation (upper airway sounds resolved with only crackles now) and no wheezes Cardiovascular: Rate/Rhythm: regular rate and regular rhythm Extremities: + edema (b/l LE swelling improving) Gastrointestinal (Abdomen): Inspection/Auscultation: abdomen not distended Percussion/Palpation: abdomen soft; abdomen nontender Musculoskeletal: Head/Neck/Chest: normocephalic and head atraumatic Skin: no rashes, warm and dry + ulcer (multiple areas noted) and + wound (multiple areas noted) Neurologic: awake; not confused Speech / Cognition: normal speech Psychiatric: Affect: + anxious affect Results & Data Results & Data ([facility]) Vital Signs (Past 12 Hours) Vital Signs Temp Pulse Pulse Resp BP Pulse Ox 08/11/20 17:32 65 158/83 H 98 08/11/20 15:35 36.7 C 68 19 162/93 H 95 08/11/20 15:11 86 20 95 08/11/20 11:47 36.4 C L 76 22 154/78 H 92 08/11/20 11:12 78 78 16 94 08/11/20 10:34 66 20 96 08/11/20 08:26 36.3 C L 74 19 151/69 H 99 08/11/20 07:02 75 21 98 PG Care Time/CCT Total # of Minutes Spent Total Time Spent with Patient: Total time spent is greater than 50% in coordination of care (as documented) at patient's floor/unit and/or counseling patient: Coding Level of Care Code 69869 Subseq Hosp Care Lvl 3 Diagnoses Acute and chronic respiratory failure with hypoxia J96.21 Lower extremity edema R60.0 Pleural effusion J90 CKD (chronic kidney disease) stage 3, GFR 30-59 ml/min N18.3 Diabetes mellitus, type 2 E11.9 HTN (hypertension) I10 Hyperlipidemia E78.5 Chronic silicosis J62.8
[2020-08-11] MEDS: BUDESONIDE 0.5 MG/2 ML VIAL (PULMICORT) NEB SCH (18:52)
[2020-08-11] MEDS: FORMOTEROL 20 MCG/2 ML VIAL NEB SCH (18:52)
[2020-08-11] MEDS: ENOXAPARIN INJ 40 MG/0.4 ML SYR SQ SCH (20:39)
[2020-08-11] MEDS: SIMVASTATIN 20 MG TAB PO SCH (20:40)
[2020-08-11] MEDS: PRAZOSIN HCL 1 MG CAP PO SCH (20:41)
[2020-08-11] MEDS: cefTRIAXone SODIUM 2,000 MG in DEXTROSE 5% 50 ML IV SCH (22:34)
[2020-08-12] MEDS: MoRPHine SULFATE 2 MG/ML CARP IV PRN ×3 (00:16→08:39)
[2020-08-12] MEDS: ALBUT/IPRATROP 3MG/0.5MG NEB 3 ML VIAL NEB SCH ×5 (02:08→19:35)
[2020-08-12] MEDS: FORMOTEROL 20 MCG/2 ML VIAL NEB SCH ×2 (07:22→19:35)
[2020-08-12] MEDS: BUDESONIDE 0.5 MG/2 ML VIAL (PULMICORT) NEB SCH ×2 (07:22→19:35)
[2020-08-12] MEDS: QUEtiapine FUMARATE 25 MG TABLET PO SCH ×2 (08:28→21:18)
[2020-08-12] MEDS: BUMETANIDE 4 MG in SYRINGE 0 ML IV SCH ×2 (08:30→17:18)
[2020-08-12] MEDS: ASPIRIN 81 MG ECTAB PO SCH (08:31)
[2020-08-12] MEDS: AZITHROMYCIN 250 MG TAB PO SCH (08:31)
[2020-08-12] MEDS: CHOLECALCIFEROL 1,000 UNITS 25 MCG TAB PO SCH (08:31)
[2020-08-12] MEDS: POTASSIUM CHLORIDE 10 MEQ TABCR PO SCH (08:32)
[2020-08-12] MEDS: INSULIN ASPART 100 UNITS/ML 3 ML PEN SC SCH ×4 (08:47→21:30)
[2020-08-12 09:34] LABS: Basophils # (auto) 0.01 K/uL (0-0.2); Basophils % (auto) 0.2 %; Eosinophils # (auto) 0.01 K/uL (0-0.5); Eosinophils % (auto) 0.2 %; Hemoglobin 12.4 g/dL (14.0-18.0); Immature Granulocytes # (auto) 0.01 K/uL (0.00-0.02); Immature Granulocytes % (auto) 0.2 %; Lymphocytes # (auto) 0.58 K/uL (1.2-3.4); Lymphocytes % (auto) 9.5 %; Mean Corpuscular Hemoglobin 28.8 pg (25-34); Mean Corpuscular Hgb Conc 31.8 g/dL (32-36); Mean Corpuscular Volume 90.5 fL (80-100); Mean Platelet Volume 10.8 fL (7.4-10.4); Monocytes # (auto) 0.21 K/uL (0.11-0.59); Monocytes % (auto) 3.4 %; Neutrophils # (auto) 5.28 K/uL (1.4-6.5); Neutrophils % (auto) 86.5 %; Platelet Count 146 K/uL (130-400); RDW Coefficient of Variation 14.5 % (11.5-14.5); RDW Standard Deviation 48.5 fL (36.4-46.3); Red Blood Count 4.31 M/uL (4.7-6.1)
--- NOTE | 2020-08-12 09:47 | Pulmonology Progress Note ---
Date of Service August 12, 2020 Assessment & Plan (1) Respiratory failure, acute: Respiratory failure complication: unspecified whether with hypoxia or hypercapnia Qualified Code(s): J96.00 - Acute respiratory failure, unspecified whether with hypoxia or hypercapnia (2) Dyspnea: Dyspnea type: unspecified Qualified Code(s): R06.00 - Dyspnea, unspecified (3) Lung mass: Impression: 85-year-old male with history of chronic silicosis and stable to very slightly enlarged right perihilar mass. The patient has declined evaluation for this previously and given his advanced age and medical comorbidities, I do not think he is a candidate for any aggressive interventions at this point time. He does have adenopathy on his prior CT scans. He was admitted with respiratory distress likely secondary to diastolic dysfunction superimposed on hypertension. He appears to be returning back to his baseline. He was doing well but I was called back to see the patient yesterday due to an episode of increasing respiratory distress which apparently appears to have responded to transition to nebulized medications as well as racemic epinephrine. There was some question about potential vocal cord spasm or edema. Chest x-ray did show fluid overload. Recommendations: 1. Abnormal CT scan: As per previous note. The patient has declined any evaluation from this and it likely represents sequelae of his occupational lung disease/chronic silicosis. 2. Hypoxemic respiratory failure: Multifactorial due to commendations of diastolic dysfunction and hypertensive urgency as well as interstitial lung disease. Continue oxygen as tolerated. The episode yesterday is of unclear etiology but appears to have resolved. He appears to have some degree of owning which likely was exacerbated by Ativan. Would avoid additional benzodiazepines and management of the patient's delirium is deferred to the hospitalist service. 3. No indication for systemic steroids based on my evaluation. The patient was placed on Zosyn and vancomycin. Deescalated to Rocephin and azithromycin. Can change azithromycin to oral. White count now normal. 4. Patient uses CPAP at home. He can bring his home unit and for use in the hospital or continue to use our unit. 5. BNP is significantly elevated. He does have a significant murmur currently but his echocardiogram from October 2018 did not show any significant valvular disease. 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 I would recommend diuresis as tolerated by his kidney function. He was given additional diuretics yesterday with significant improvement in his fluid balance. Recommend following kidney function I agree with DNR/DNI status. Patient family to be updated by hospitalist I will check on him again tomorrow. The patient can follow-up with Dr. Singh in the outpatient setting. Admission and Anticipated Discharge Date Admission Date: August 08, 2020 Subjective Patient seen and examined. He is sitting up at the bedside eating breakfast. He appears confused but is able to answer questions. He denies any shortness of breath or respiratory problems. Review of Systems Review of Systems: Unobtainable due to cognitive status Physical Exam Constitutional: + altered mental status; no acute distress and not ill appearing Neck: trachea midline, no thyromegaly Respiratory: normal respiratory effort Auscultation: + rales; no wheezes Cardiovascular: RRR, no murmur, no edema Gastrointestinal (Abdomen): normal bowel sounds, soft, nontender, no hepatosplenomegaly Musculoskeletal: Extremities: extremities normal to inspection Skin: no rashes, warm and dry Neurologic: Nonfocal exam Lymphatic: no cervical lymphadenopathy Results & Data Results & Data ([facility]) Vital Signs (Past 12 Hours) Vital Signs Temp Pulse Pulse Resp BP Pulse Ox 08/12/20 07:42 71 14 97 08/12/20 07:23 62 24 97 08/12/20 04:36 36.6 C 60 18 137/78 97 08/12/20 02:08 65 24 95 08/12/20 00:53 36.5 C 60 20 124/71 95 Laboratory Results 08/12/20 08:59 Diagnostic Findings No new imaging PG Care Time/CCT Total # of Minutes Spent Total Time Spent with Patient: Total time spent is greater than 50% in coordination of care (as documented) at patient's floor/unit and/or counseling patient: Coding Level of Care Code 70315 Subseq Hosp Care Lvl 3 Diagnoses Respiratory failure, acute J96.00 Respiratory failure complication: unspecified whether with hypoxia or hypercapnia Dyspnea R06.00 Dyspnea type: unspecified Lung mass R91.8
[2020-08-12 09:57] LABS: BUN Creatinine Ratio 36.7 (10-20); Calcium 9.6 mg/dl (8.5-10.1); Creatinine Clr Calc Pharmacy 30.6 ml/min; Est GFR (African American) 44.6; Est GFR (Non-African American) 38.5; Potassium 3.6 mmol/L (3.5-5.1)
--- NOTE | 2020-08-12 10:13 | Palliative Care Consultation ---
Date of Consultation August 12, 2020 Assessment & Plan (1) Palliative care encounter: This is an 85 year old male male who presented to the [facility] via EMS with hypoxia and chest tightness. Additional extensive PMH includes: CKD stage III, lung mass, hypoxia, pleural effusion, acute on chronic respiratory failure with hypoxia, hyperlipidemia, hypertension, diabetes mellitus type 2, chronic silicosis, BPH, epistaxis and history of hypotension. He was placed on BiPAP when he arrived to the hospital and was started on diuretics, nebulizers and antibiotics. I met with Jeremie in room 237. He was sleeping and mostly unresponsive. He did open his eyes for me when I spoke loudly in his left ear. He would not follow commands nor answer questions. Per his nurse, Lashay, he did eat some breakfast and sat on the side of the bed earlier. He did receive a low dose of Morphine and his unresponsiveness may improve once this wears off. I reached out to his son, Bryson ([phone]) and talked extensively about his goals for his father. He expressed that he has really declined over the past year after his has and has become less independent. He lives directly next door to his father and has other family that also live on their street. His ultimate goal is for him to complete treatment, including antibiotics, but ultimately shift focus to a more conservative approach upon discharge, which he would prefer is home with hospice services. I ultimately explained hospice services and how he would benefit. Patient ultimately would not utilize BiPAP if he did return home with hospice. Family is understanding of this. Also suggested supplemental services for additional caregivers. Son expressed that he has multiple family members to assist upon discharge. Email sent to case management to follow up. The above was communicated with Dr. Sarabia, his hospitalist as well. A POLST form would be helpful upon discharge to home. Palliative care will follow. (2) Acute diastolic (congestive) heart failure: (3) Lung mass: (4) Hypoxia: (5) Respiratory failure, acute: Respiratory failure complication: unspecified whether with hypoxia or hypercapnia Qualified Code(s): J96.00 - Acute respiratory failure, unspecified whether with hypoxia or hypercapnia (6) CKD (chronic kidney disease) stage 3, GFR 30-59 ml/min: History of Present Illness Reason for Consultation: Goals of Care Requesting Physician: Dr.. Sarabia Attending Physician: Moody Sarabia MD History of Present Illness This is an 85 year old male male who presented to the [facility] via EMS with hypoxia and chest tightness. Additional extensive PMH includes: CKD stage III, lung mass, hypoxia, pleural effusion, acute on chronic respiratory failure with hypoxia, hyperlipidemia, hypertension, diabetes mellitus type 2, chronic silicosis, BPH, epistaxis and history of hypotension. He was placed on BiPAP when he arrived to the hospital and was started on diuretics, nebulizers and antibiotics. Allergies Allergy/AdvReac Type Severity Reaction Status Date / Time No Known Allergies Allergy Verified 08/08/20 21:51 Home Medications Medication Instructions Recorded Confirmed Type Centrum Silver 1 tab PO QAM 10/25/18 08/08/20 History Symbicort 2 puff INHALATION BID 10/25/18 09/07/19 History albuterol sulfate [Ventolin HFA] 2 puff INHALATION Q6H PRN 10/25/18 08/08/20 History cholecalciferol (vitamin D3) 1,000 unit PO QAM 10/25/18 08/08/20 History [Vitamin D3] prazosin 2 mg PO HS 10/25/18 08/08/20 History metformin 1,000 mg PO BID #60 tab 10/26/18 08/08/20 Rx aspirin 81 mg PO DAILY 09/07/19 08/08/20 History magnesium oxide 420 mg PO BID 09/07/19 08/08/20 History simvastatin 20 mg PO HS 09/07/19 08/08/20 History alogliptin 6.25 mg PO DAILY 08/08/20 08/08/20 History budesonide-formoterol 2 puff INHALATION BID 08/08/20 08/08/20 History bumetanide 1 mg PO DAILY 08/08/20 08/08/20 History potassium chloride 10 meq PO DAILY 08/08/20 08/08/20 History quetiapine 25 mg PO BID 08/08/20 08/08/20 History Patient History Medical History (Updated 08/12/20 @ 18:26 by ASHLEY Bui) Anemia Asthma BPH (benign prostatic hyperplasia) Chronic silicosis Diabetes mellitus, type 2 NIDDM Epistaxis GI bleed H/O H/O cardiac pacemaker 09/01/2014, FOLLOWS WITH DR ARRIAGA ([place]). LAST CHECKED JUNE 24, 2018. 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 Beliefs That Will Affect Care: None marital status: Unknown Current Living Situation: Family Feels Safe at Home: Yes Assistive Devices: None Review of Systems Review of Systems: Unobtainable due to reduced consciousness Physical Exam Constitutional: + ill appearing, + thin and + frail appearing; no acute distress Respiratory: normal respiratory effort Auscultation: + diminished lung sounds and + rales Cardiovascular: Heart Sounds: normal S1 and normal S2 Extremities: normal capillary refill Gastrointestinal (Abdomen): normal bowel sounds, soft, nontender, no hepatosplenomegaly Skin: no rashes, warm and dry + crusts (on feet bilateral), + dry skin and + pallor Psychiatric: A+Ox3, euthymic affect Orientation: alert Lymphatic: + lymphedema Results & Data ([facility]) Vital Signs (Past 12 Hours) Vital Signs Temp Pulse Pulse Resp BP Pulse Ox 08/12/20 07:42 71 14 97 08/12/20 07:23 62 24 97 08/12/20 04:36 36.6 C 60 18 137/78 97 08/12/20 02:08 65 24 95 08/12/20 00:53 36.5 C 60 20 124/71 95 PG Care Time/CCT Total # of Minutes Spent Total Time Spent with Patient: Total time spent is greater than 50% in coordination of care (as documented) at patient's floor/unit and/or counseling patient: 70 Coding Level of Care Code 45848 Inpt Consult Level 3 Diagnoses Palliative care encounter Z51.5 Acute diastolic (congestive) heart failure I50.31 Lung mass R91.8 Hypoxia R09.02 Respiratory failure, acute J96.00 Respiratory failure complication: unspecified whether with hypoxia or hypercapnia CKD (chronic kidney disease) stage 3, GFR 30-59 ml/min N18.3 Time Spent (min) 70 Time Spent Midlevel Total time spent 70 minutes with > 50% of that time spent assessing the patient, discussing goals of care with the patients son and collaborating with IDT
--- NOTE | 2020-08-12 13:04 | Hospitalist Progress Note ---
Date of Service August 12, 2020 Assessment & Plan (1) Acute and chronic respiratory failure with hypoxia: Supplemental oxygen to maintain saturation greater than 90%. 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 Continue to treat CHF. Serial chest x-ray. (2) CKD (chronic kidney disease) stage 3, GFR 30-59 ml/min: Creatinine 1.59 upon admission, with range 1.25-1.88. Currently stable. Serial lab studies with continued diuresis with parenteral Bumex. Monitor intake and output. Serial lab studies. (3) Pneumonia: Suspected pneumonia on admission. Currently on oral azithromycin and IV Rocephin. Obtain sputum culture if sputum is produced Present on Admission?: Yes (4) Acute diastolic (congestive) heart failure: Continue parenteral Bumex. Monitor urine output. Limit salt intake. Present on Admission?: Yes (5) Diabetes mellitus, type 2: Hold alogliptin and Metformin. ADA diet. Sliding scale insulin coverage as needed. (6) HTN (hypertension): Stable. Continue med management. (7) Hyperlipidemia: Continue simvastatin 20 mg at bedtime (8) Chronic silicosis: Causing severe pulmonary fibrosis/interstitial lung disease. Continue Ventolin HFA 2 puffs every 6 hours as needed Admission and Anticipated Discharge Date Admission Date: August 08, 2020 Subjective The patient is lethargic and nonverbal with me. Palliative care consult has be en requested. He remains on oxygen supplementation per nasal cannula. Continue parenteral Bumex diuresis and monitor intake and output. Serial lab studies. Metformin and alogliptin remain on hold. Review of Systems Review of Systems: Unobtainable due to cognitive status Physical Exam Physical Exam: General-lethargic but arousable. Nonverbal HEENT-head atraumatic and normocephalic, TMs intact bilaterally, pupils equal and reactive to light, extraocular muscles intact Neck-no lymphadenopathy or thyromegaly, trachea midline Chest-diminished bilaterally. Adventitious respiratory sounds. Cardiac-regular rate and rhythm, normal S1 and S2, no murmurs Abdomen-normal bowel sounds, nontender, no hepatosplenomegaly Extremities-no cyanosis, clubbing, or edema Neuro-lethargic. No apparent focal deficits. Results & Data Results & Data ([facility]) Vital Signs (Past 12 Hours) Vital Signs Temp Pulse Pulse Resp BP BP Pulse Ox 08/12/20 11:08 62 18 99 08/12/20 11:01 36.6 C 60 20 143/72 H 99 08/12/20 09:00 16 97 08/12/20 08:00 36.3 C L 61 28 H 154/75 H 90 08/12/20 07:42 71 14 97 08/12/20 07:23 62 24 97 08/12/20 04:36 36.6 C 60 18 137/78 97 08/12/20 02:08 65 24 95 Laboratory Results 08/12/20 08:59 08/12/20 08:59 PG Care Time/CCT Total # of Minutes Spent Total Time Spent with Patient: Total time spent is greater than 50% in coordination of care (as documented) at patient's floor/unit and/or counseling patient: Coding Level of Care Code 08994 Subseq Hosp Care Lvl 3 Diagnoses Acute and chronic respiratory failure with hypoxia J96.21 CKD (chronic kidney disease) stage 3, GFR 30-59 ml/min N18.3 Pneumonia J18.9 Acute diastolic (congestive) heart failure I50.31 Diabetes mellitus, type 2 E11.9 HTN (hypertension) I10 Hyperlipidemia E78.5 Chronic silicosis J62.8
[2020-08-12] MEDS: PRAZOSIN HCL 1 MG CAP PO SCH (21:17)
[2020-08-12] MEDS: ENOXAPARIN INJ 40 MG/0.4 ML SYR SQ SCH (21:18)
[2020-08-12] MEDS: SIMVASTATIN 20 MG TAB PO SCH (21:18)
[2020-08-12] MEDS: cefTRIAXone SODIUM 2,000 MG in DEXTROSE 5% 50 ML IV SCH (21:20)
[2020-08-13] MEDS: ALBUT/IPRATROP 3MG/0.5MG NEB 3 ML VIAL NEB SCH ×4 (07:15→19:48)
[2020-08-13] MEDS: BUDESONIDE 0.5 MG/2 ML VIAL (PULMICORT) NEB SCH ×2 (07:15→19:49)
[2020-08-13] MEDS: FORMOTEROL 20 MCG/2 ML VIAL NEB SCH ×2 (07:16→19:49)
[2020-08-13] MEDS: BUMETANIDE 4 MG in SYRINGE 0 ML IV SCH ×2 (08:03→17:25)
[2020-08-13] MEDS: QUEtiapine FUMARATE 25 MG TABLET PO SCH ×2 (08:04→21:22)
[2020-08-13] MEDS: CHOLECALCIFEROL 1,000 UNITS 25 MCG TAB PO SCH (08:04)
[2020-08-13] MEDS: AZITHROMYCIN 250 MG TAB PO SCH (08:04)
[2020-08-13] MEDS: POTASSIUM CHLORIDE 10 MEQ TABCR PO SCH ×2 (08:04→21:22)
[2020-08-13] MEDS: ASPIRIN 81 MG ECTAB PO SCH (08:04)
[2020-08-13] MEDS: INSULIN ASPART 100 UNITS/ML 3 ML PEN SC SCH ×4 (08:06→21:23)
[2020-08-13 08:27] LABS: Basophils # (auto) 0.01 K/uL (0-0.2); Basophils % (auto) 0.2 %; Eosinophils # (auto) 0.09 K/uL (0-0.5); Eosinophils % (auto) 1.5 %; Hematocrit (blood only) 40.1 % (42-52); Hemoglobin 12.9 g/dL (14.0-18.0); Lymphocytes # (auto) 0.69 K/uL (1.2-3.4); Lymphocytes % (auto) 11.7 %; Mean Corpuscular Hemoglobin 29.2 pg (25-34); Mean Corpuscular Hgb Conc 32.2 g/dL (32-36); Mean Corpuscular Volume 90.7 fL (80-100); Mean Platelet Volume 10.1 fL (7.4-10.4); Monocytes # (auto) 0.22 K/uL (0.11-0.59); Monocytes % (auto) 3.7 %; Neutrophils # (auto) 4.88 K/uL (1.4-6.5); Neutrophils % (auto) 82.9 %; Platelet Count 152 K/uL (130-400); RDW Coefficient of Variation 14.3 % (11.5-14.5); RDW Standard Deviation 47.7 fL (36.4-46.3); Red Blood Count 4.42 M/uL (4.7-6.1); White Blood Count 5.89 K/uL (4.8-10.8)
[2020-08-13 08:55] LABS: BUN Creatinine Ratio 35.5 (10-20); Calcium 9.4 mg/dl (8.5-10.1); Creatinine Clr Calc Pharmacy 35.5 ml/min; Est GFR (African American) 53.4; Potassium 3.5 mmol/L (3.5-5.1)
--- NOTE | 2020-08-13 09:54 | XRay Report ---
XR chest 1V portable HISTORY: 85 years-old Male CHF, ILD acute shortness of breath with congestive heart failure. COMPARISON: Chest radiograph 08/11/2020, CTA chest 09/07/2019 TECHNIQUE: Portable AP view the chest FINDINGS: Cardiac silhouette is enlarged. Left subclavian pacer. Calcified plaque of the thoracic aorta. Unchan ged right hemidiaphragmatic elevation. 5 cm right perihilar mass redemonstrated. Left hilar prominenc e is redemonstrated. There is chronic reticular nodular opacities with mildly improved interstitial c oarsening with patchy alveolar densities. And probable trace pleural effusions. Degenerative changes of the shoulders and spine. Healed remote left clavicular fracture deformity. IMPRESSION: 1. Cardiomegaly with mildly improved aeration of the lungs. 2. Chronic reticulonodular opacities with masslike densities in the bilateral blu are again noted smith ggestive of progressive massive fibrosis with granulomatous disease. 3. Trace pleural effusions. ACT 112: Negative or not required by law. The above report was generated using voice recognition software. It may contain grammatical, syntax o r spelling errors. Electronically signed by: Kong Ko M.D. 08/13/2020 9:53 AM
--- NOTE | 2020-08-13 10:54 | Pulmonology Progress Note ---
Date of Service August 13, 2020 Assessment & Plan (1) Respiratory failure, acute: Respiratory failure complication: unspecified whether with hypoxia or hypercapnia Qualified Code(s): J96.00 - Acute respiratory failure, unspecified whether with hypoxia or hypercapnia (2) Dyspnea: Dyspnea type: unspecified Qualified Code(s): R06.00 - Dyspnea, unspecified (3) Lung mass: Impression: 85-year-old male with history of chronic silicosis and stable to very slightly enlarged right perihilar mass. The patient has declined evaluation for this previously and given his advanced age and medical comorbidities, I do not think he is a candidate for any aggressive interventions at this point time. He does have adenopathy on his prior CT scans. He was admitted with respiratory distress likely secondary to diastolic dysfunction superimposed on hypertension. He appears to be returning back to his baseline. He appears improved today. Recommendations: 1. Abnormal CT scan: As per previous note. The patient has declined any evaluation from this and it likely represents sequelae of his occupational lung disease/chronic silicosis. 2. Hypoxemic respiratory failure: Multifactorial due to commendations of rodriguez tolic dysfunction and hypertensive urgency as well as interstitial lung disease. Continue oxygen as tolerated. The episode yesterday is of unclear etiology but appears to have resolved. He appears to have some degree of owning which likely was exacerbated by Ativan. Would avoid additional benzodiazepines and management of the patient's delirium is deferred to the hospitalist service. 3. No indication for systemic steroids based on my evaluation. The patient was placed on Zosyn and vancomycin. Deescalated to Rocephin and azithromycin. Can change azithromycin to oral. White count now normal. 4. Patient uses CPAP at home. He can bring his home unit and for use in the hospital or continue to use our unit. 5. BNP is significantly elevated. He does have a significant murmur currently but his echocardiogram from October 2018 did not show any significant valvular disease. Defer to primary service as to whether or not this needs to be repeated although I doubt it would supervisor records change. I would recommend diuresis as tolerated by his kidney function. He was given additional diuretics yesterday with significant improvement in his fluid balance. Recommend following kidney function I agree with DNR/DNI status. Patient family to be updated by hospitalist Pulmonary will sign off in light of the fact that the patient appears to be transitioning to palliative care. Feel free to call us if we can be of additional assistance. The patient can follow-up with Dr. Singh in the outpatient setting. Admission and Anticipated Discharge Date Admission Date: August 08, 2020 Subjective Patient seen and examined. He is eating breakfast in bed. He appears much more alert and interactive today. He denies any respiratory problems. Denies cough. The 24-hour events were noted with consultation with palliative care and his hospitalist service. Review of Systems Review of Systems: Unchanged from prior Physical Exam Constitutional: WD/WN, vitals as above no acute distress and not ill appearing Respiratory: normal respiratory effort Auscultation: + crackles, + rales and + wheezes Cardiovascular: Rate/Rhythm: regular rate Heart Sounds: normal S1, normal S2 and + murmur Results & Data Results & Data ([facility]) Vital Signs (Past 12 Hours) Vital Signs Temp Pulse Pulse Resp BP BP Pulse Ox 08/13/20 10:48 58 L 18 94 08/13/20 07:22 61 08/13/20 07:16 36.8 C 58 L 19 144/75 H 99 08/13/20 03:44 36.6 C 61 19 152/77 H 97 08/12/20 23:23 36.7 C 60 19 134/73 98 Laboratory Results 08/13/20 08:14 08/13/20 08:14 Diagnostic Findings No new imaging PG Care Time/CCT Total # of Minutes Spent Total Time Spent with Patient: Total time spent is greater than 50% in coordination of care (as documented) at patient's floor/unit and/or counseling patient: Coding Level of Care Code 43605 Subseq Hosp Care Lvl 2 Diagnoses Respiratory failure, acute J96.00 Respiratory failure complication: unspecified whether with hypoxia or hypercapnia Dyspnea R06.00 Dyspnea type: unspecified Lung mass R91.8
--- NOTE | 2020-08-13 11:11 | Palliative Care Progress Note ---
Date of Service August 13, 2020 Assessment & Plan (1) Delirium: More alert today but remains confused with delirium behaviors such as picking at sheets and scratching his head repeatedly. Not agitated. Easily redirected. Likely exacerbated by hospitalization. Would continue luis Roper (2) Palliative care encounter: I spoke with his son, Bryson, on the phone with update that Jeremie is more alert and appears comfortable. Plan is for return home with hospice care when ready for discharge. Family has been in contact with hospice and are arranging hospital bed. Reviewed POLST form with Bryson over the phone and completed it per our discussion for DNR, comfort measures only, no artificial nutrition or hydration, antibiotics to be determined. Bryson will review when Jeremie returns home and sign. (3) Acute diastolic (congestive) heart failure: (4) Pneumonia: (5) Lung mass: (6) Chronic silicosis: Admission and Anticipated Discharge Date Admission Date: August 08, 2020 Subjective Awake and alert. Confused. Can't recall his son's name. Answers to questions not always appropriate. He does deny pain or shortness of breath. Review of Systems Review of Systems: [place] Symptom Assessment Scale Pain0/3 Dyspnea0/3 Nausea 0/3 Anxiety 1/3 Delirium 2/3 Anorexia 1/3 Drowsiness 0/3 Palliative Performance Score 30% Physical Exam Constitutional: + frail appearing picking at sheets Respiratory: + uses accessory muscles Not on bipap, tolerating O2 via nasal cannula Cardiovascular: Rate/Rhythm: regular rhythm Extremities: no edema Skin: warm and dry Psychiatric: Orientation: alert; + not oriented x 3 Results & Data ([facility]) Vital Signs (Past 12 Hours) Vital Signs Temp Pulse Pulse Resp BP BP Pulse Ox 08/13/20 10:48 58 L 18 94 08/13/20 07:22 61 08/13/20 07:16 98.2 F 58 L 19 144/75 H 99 08/13/20 03:44 97.9 F 61 19 152/77 H 97 08/12/20 23:23 98.1 F 60 19 134/73 98 PG Care Time/CCT Total # of Minutes Spent Total Time Spent with Patient: Total time spent is greater than 50% in coordination of care (as documented) at patient's floor/unit and/or counseling patient:35 minutes total time with more than 50% of time spent on discussion of hospice, plan of care and POLST completion. Coding Level of Care Code 53652 Subseq Hosp Care Lvl 3 Diagnoses Delirium R41.0 Palliative care encounter Z51.5 Acute diastolic (congestive) heart failure I50.31 Pneumonia J18.9 Lung mass R91.8 Chronic silicosis J62.8
--- NOTE | 2020-08-13 12:22 | Hospitalist Progress Note ---
Date of Service August 13, 2020 Assessment & Plan (1) Acute and chronic respiratory failure with hypoxia: Supplemental oxygen to maintain saturation greater than 90%. 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 Continue to treat CHF. Serial chest x-ray. Slowly improving. Taper down oxygen as tolerated (2) CKD (chronic kidney disease) stage 3, GFR 30-59 ml/min: Creatinine 1.59 upon admission, with range 1.25-1.88. Currently stable. Serial lab studies with continued diuresis with parenteral Bumex. Monitor intake and output. Serial lab studies. (3) Pneumonia: Suspected pneumonia on admission. Currently on oral azithromycin and IV Rocephin. Obtain sputum culture if sputum is produced (4) Acute diastolic (congestive) heart failure: Continue parenteral Bumex. Monitor urine output. Limit salt intake. Chest x-ray today, August 13, looks slightly better (5) Diabetes mellitus, type 2: Hold alogliptin. Restarted Metformin today, August 13, at a lower dose. ADA diet. Sliding scale insulin coverage as needed. (6) HTN (hypertension): Stable. Continue med management. (7) Hyperlipidemia: Continue simvastatin 20 mg at bedtime (8) Chronic silicosis: Causing severe pulmonary fibrosis/interstitial lung disease. Continue Ventolin HFA 2 puffs every 6 hours as needed Disposition: The family wishes to take the patient home with hospice tomorrow, August 14 Admission and Anticipated Discharge Date Admission Date: August 08, 2020 Subjective The patient is awake and able to converse. Chest x-ray today looks somewhat better with diuresis. Oxygen saturation 99% on 3.5 L oxygen. Creatinine down to 1.3. The family would like to take the patient home tomorrow with hospice. Low-dose Metformin restarted today. Potassium supplementation increased. Review of Systems Review of Systems: Constitutional-no fever or chills ENT-no blurred vision, no double vision, no epistaxis, no sore throat Respiratory-cough and occasional wheezing. Dyspnea on exertion. No sputum production Cardiac-no palpitations, no chest pain, no syncope GI-no nausea, vomiting, diarrhea, melena, hematochezia -no urinary retention, no urinary incontinence, no dysuria, no hematuria Musculoskeletal-no joint pain, no muscle tenderness. Generalized weakness Skin-no bruising, no rashes, no pruritus Neuro-generalized weakness Psych-no depression, no anxiety Physical Exam Physical Exam: General-alert and oriented x3, no fevers, no chills HEENT-head atraumatic and normocephalic, TMs intact bilaterally, pupils equal and reactive to light, extraocular muscles intact Neck-no lymphadenopathy or thyromegaly, trachea midline Chest-diminished breath sounds bilaterally with adventitious respiratory sounds. Cardiac-regular rate and rhythm, normal S1 and S2. Paced rhythm Abdomen-normal bowel sounds, nontender, no hepatosplenomegaly Extremities-no cyanosis, clubbing, or edema Neuro-cranial nerves II through XII intact, generalized weakness. No focal deficits. Psych-flat affect Results & Data Results & Data ([facility]) Vital Signs (Past 12 Hours) Vital Signs Temp Pulse Pulse Resp BP Pulse Ox 08/13/20 11: 36.8 C 61 18 139/74 94 08/13/20 10:48 58 L 18 94 08/13/20 07:22 61 08/13/20 07:16 36.8 C 58 L 19 144/75 H 99 08/13/20 03:44 36.6 C 61 19 152/77 H 97 Laboratory Results 08/13/20 08:14 08/13/20 08:14 PG Care Time/CCT Total # of Minutes Spent Total Time Spent with Patient: Total time spent is greater than 50% in coordination of care (as documented) at patient's floor/unit and/or counseling patient: Coding Level of Care Code 88371 Subseq Hosp Care Lvl 3 Diagnoses Acute and chronic respiratory failure with hypoxia J96.21 CKD (chronic kidney disease) stage 3, GFR 30-59 ml/min N18.3 Pneumonia J18.9 Acute diastolic (congestive) heart failure I50.31 Diabetes mellitus, type 2 E11.9 HTN (hypertension) I10 Hyperlipidemia E78.5 Chronic silicosis J62.8
[2020-08-13] MEDS: MoRPHine SULFATE 2 MG/ML CARP IV PRN ×2 (15:08→22:53)
[2020-08-13] MEDS: metFORMIN HCL 500 MG TAB PO SCH (17:21)
[2020-08-13] MEDS: ENOXAPARIN INJ 40 MG/0.4 ML SYR SQ SCH (21:22)
[2020-08-13] MEDS: SIMVASTATIN 20 MG TAB PO SCH (21:22)
[2020-08-13] MEDS: PRAZOSIN HCL 1 MG CAP PO SCH (21:22)
[2020-08-13] MEDS: cefTRIAXone SODIUM 2,000 MG in DEXTROSE 5% 50 ML IV SCH (21:22)
[2020-08-14 06:33] LABS: Basophils # (auto) 0.01 K/uL (0-0.2); Basophils % (auto) 0.2 %; Eosinophils # (auto) 0.15 K/uL (0-0.5); Eosinophils % (auto) 2.6 %; Hematocrit (blood only) 38.6 % (42-52); Hemoglobin 12.2 g/dL (14.0-18.0); Immature Granulocytes # (auto) 0.02 K/uL (0.00-0.02); Immature Granulocytes % (auto) 0.3 %; Lymphocytes # (auto) 0.34 K/uL (1.2-3.4); Lymphocytes % (auto) 5.9 %; Mean Corpuscular Hemoglobin 28.5 pg (25-34); Mean Corpuscular Hgb Conc 31.6 g/dL (32-36); Mean Corpuscular Volume 90.2 fL (80-100); Mean Platelet Volume 10.3 fL (7.4-10.4); Monocytes # (auto) 0.77 K/uL (0.11-0.59); Monocytes % (auto) 13.3 %; Neutrophils # (auto) 4.51 K/uL (1.4-6.5); Neutrophils % (auto) 77.7 %; Platelet Count 157 K/uL (130-400); RDW Coefficient of Variation 14.3 % (11.5-14.5); RDW Standard Deviation 47.5 fL (36.4-46.3); Red Blood Count 4.28 M/uL (4.7-6.1)
[2020-08-14] MEDS: FORMOTEROL 20 MCG/2 ML VIAL NEB SCH (07:16)
[2020-08-14] MEDS: BUDESONIDE 0.5 MG/2 ML VIAL (PULMICORT) NEB SCH (07:16)
[2020-08-14] MEDS: ALBUT/IPRATROP 3MG/0.5MG NEB 3 ML VIAL NEB SCH (07:17)
[2020-08-14 07:26] LABS: BUN Creatinine Ratio 30.1 (10-20); Creatinine Clr Calc Pharmacy 32.7 ml/min; Est GFR (African American) 48.2; Est GFR (Non-African American) 41.6; Potassium 3.2 mmol/L (3.5-5.1)
[2020-08-14] MEDS: ASPIRIN 81 MG ECTAB PO SCH (08:12)
[2020-08-14] MEDS: CHOLECALCIFEROL 1,000 UNITS 25 MCG TAB PO SCH (08:12)
[2020-08-14] MEDS: BUMETANIDE 4 MG in SYRINGE 0 ML IV SCH (08:12)
[2020-08-14] MEDS: AZITHROMYCIN 250 MG TAB PO SCH (08:12)
[2020-08-14] MEDS: POTASSIUM CHLORIDE 10 MEQ TABCR PO SCH (08:13)
[2020-08-14] MEDS: metFORMIN HCL 500 MG TAB PO SCH (08:13)
[2020-08-14] MEDS: QUEtiapine FUMARATE 25 MG TABLET PO SCH (08:13)
[2020-08-14] MEDS: INSULIN ASPART 100 UNITS/ML 3 ML PEN SC SCH ×2 (09:21→13:06)
[2020-08-14] MEDS ORDERED: ALBUT/IPRATROP 3MG/0.5MG NEB 3 ML VIAL NEB PRN (09:49)
--- NOTE | 2020-08-14 13:18 | Discharge Summary ---
Date of Service August 14, 2020 Admission HPI Per Admitting Provider The patient is an 85-year-old male with a past medical history including CKD stage III, lung mass, hypoxia, pleural effusion, acute on chronic respiratory failure with hypoxia, hyperlipidemia, hypertension, diabetes mellitus type 2, chronic silicosis, BPH, epistaxis and history of hypotension. Treatment by EMS in the field included placing the patient on BiPAP, and an inch of Nitropaste. The patient was continued on BiPAP in the emergency department. Work-up included the following significant laboratories: WBC 10.87, glucose 223, creatinine 1.59. SARS-CoV-2, RNA, NAAT (Negative) From the emergency department, patient received Zosyn 4.5 g IV IV, DuoNeb, and furosemide 40 mg IV. Principal Diagnosis Pt feels he is doing well. Denies SOB. Nursing/RT have been decreasing his O2. Tolerating PO without issue. Pt denies fever, chest pain, abd pain, n/v/c/d, LE pain or swelling. Discharge Exam Constitutional WD/WN, vitals as above Eyes normal visual calloway by confrontation and + anicteric sclerae Neck normal visual inspection and trachea midline Respiratory + respiratory distress and + labored breathing; + abnormal respiratory effort Auscultation: lungs clear to auscultation bilaterally; no crackles and no wheezes Cardiovascular Rate/Rhythm: regular rate and regular rhythm Extremities: + edema (b/l LE swelling improving) Gastrointestinal (Abdomen) Inspection/Auscultation: abdomen not distended Percussion/Palpation: abdomen soft; abdomen nontender Musculoskeletal Head/Neck/Chest: normocephalic and head atraumatic Skin no rashes, warm and dry + ulcer (multiple areas noted) and + wound (multiple areas noted) Neurologic awake; not confused Speech / Cognition: normal speech Psychiatric A+Ox3, euthymic affect Affect: + anxious affect Discharge Data Allergies Allergy/AdvReac Type Severity Reaction Status Date / Time No Known Allergies Allergy Verified 08/08/20 21:51 Consultations 08/08/20 21:39 ED Decision to Admit Stat 08/09/20 00:33 Consult Case Management - Discharge Planning Routine Consult Pulmonology Routine 08/12/20 08:48 Consult Palliative Care Routine Hospital Course (1) Acute and chronic respiratory failure with hypoxia: Supplemental oxygen to maintain saturation greater than 90%. 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 Continue to treat CHF as below, inhaler/neb changes as below (2) CKD (chronic kidney disease) stage 3, GFR 30-59 ml/min: Creatinine 1.59 upon admission, with range 1.25-1.88. Currently stable. Monitor with increased bumex dosing Cr on d/c 1.4 (3) Pneumonia: Suspected pneumonia on admission. Maintained on oral azithromycin and IV Rocephin Finished azithro during admission Finish 5 more days of keflex (4) Acute diastolic (congestive) heart failure: Chest x-ray on 08/13 looks slightly better Pt was on bumex 1mg BID ROLL PICKER, will d/c on 4mg BID as maintaining during admission Pt to follow closely with CHF clinic and they can titrate down as able Pt also on K 10meq BID on admission, increase to 20meq BID but should be decreased if bumex is decreased (5) Diabetes mellitus, type 2: Hold alogliptin. Restarted Metformin yesterday, will d/c on prior dosing May need to decrease if PO intake decreases (6) HTN (hypertension): Stable. Continue med management. (7) Hyperlipidemia: Continue simvastatin 20 mg at bedtime (8) Chronic silicosis: Causing severe pulmonary fibrosis/interstitial lung disease Nebs changed during admission and this has helped See below for details Pt with lung mass that has been seen in the past Pt declined tx for this in the past and again on this admission Pt is going home with hospice today Family planning 26/03 care Total Time Total Time Spent Total Time Spent (In Minutes): >30 Total Time Includes: Examination of the Patient, Discharge Planning, Medication Reconciliation, Communication With Other Providers and Other Discharge Plan Discharge Items Patient Disposition: Hospice - Home Reason For Visit: ACUTE RESP FAILURE WITH HYPOXIA, CHF Discharge Diagnosis: Acute respiratory failure with hypoxia, CHF exacerbation Activity: Resume your previous activity Non-emergency contact: Primary Care Provider Follow-up/Referrals: Mesha Riley PA-C [[employer]] - 08/19/20 10:30 am (Congestive Heart Failure Program Appointment Information Early follow up is essential to managing your heart failure. An appointment has been scheduled for you with the [facility] within 7 days of discharge. Anticipate this visit to be 30-60 minutes long. Please expect a stable cleaner phone call from one of our nurses approximately 48 hours from discharge. They will also be placing an order for lab work to be completed 1-2 days prior to your heart failure follow up appointment. Please be sure to have this done so we can go over the results when you come in. Office Location The cardiology office building is located in front of the hospital at [address] [facility]. Bring the following with you to your follow-up doctor appointments: Please bring your daily weight log any discharge paperwork all of your medication bottles with you to this visit. ) PCP,NO [Primary Care Provider] - Diet: Carb Consistent or DM2 and Low Sodium (2gm) Addtl Attending Provider Instructions: You should be seen by your PCP in the next week also Addtl Grout Worker Provider Instructions: Call your Primary Care doctor if any of the following symptoms or problems start or get worse: * Shortness of breath or difficulty breathing * Wake up at night short of breath * Chest pain * Cough * Swelling of your hands, feet, or legs * More fatigued or tired with your normal activity * Palpitations - sudden fast heart beats WEIGHT * Weigh yourself every morning after using the bathroom. * Use the same scale. * Wear the same amount of clothing. * Write your weight down on a chart. * Call your Primary Care doctor if you gain more than 2-3 pounds in 1-2 days. MEDICATIONS * Use this discharge instruction sheet for medication instructions. * Take your medications at the time your doctor ordered. * Do not skip a dose of your medicines. * If you miss a dose of medicine, take it as soon as possible, but DO NOT DOUBLE A DOSE. * Read your medicine information when you get home. * Know all of the side effects of your medicine. If in doubt, ask your pharmacist * Call your Primary Care doctor's office if you have any side effects. * Be sure all of your doctors know what medicine and herbs you take (including cold, flu, and herbal medicine). Take the following with you to your follow-up doctor appointments: * Weight Chart * Medication List * List of questions Do not drink excessive alcohol, beer or wine. Pending Studies at Discharge: No Stand-Alone Forms: My [employer] Medications and DC Order Prescriptions: New budesonide 0.5 mg/2 mL Suspension For Nebulization 0.5 mg NEB BIDR 30 Days RF: 0 potassium chloride [Klor-Con M10] 10 mEq Tablet,Er Particles/Crystals 20 meq PO BID Qty: 120 RF: 0 Perforomist 20 mcg/2 mL Solution For Nebulization 20 mcg NEB BIDR 30 Days RF: 0 cephalexin [Keflex] 500 mg capsule 500 mg PO BID 5 Days Qty: 10 RF: 0 bumetanide 2 mg tablet 4 mg PO BID Qty: 120 RF: 0 Continued albuterol sulfate [Ventolin HFA] 90 mcg/actuation Hfa Aerosol Inhaler 2 puff INHALATION Q6H PRN (Reason: Shortness Of Breath Or Wheezing) RF: 0 cholecalciferol (vitamin D3) [Vitamin D3] 1,000 unit Capsule 1,000 unit PO QAM RF: 0 Centrum Silver 0.4-300-250 mg-mcg-mcg Tablet 1 tab PO QAM RF: 0 prazosin 2 mg Capsule 2 mg PO HS RF: 0 metformin 1,000 mg tablet 1,000 mg PO BID Qty: 60 RF: 0 magnesium oxide 420 mg Tablet 420 mg PO BID RF: 0 simvastatin 40 mg Tablet 20 mg PO HS RF: 0 aspirin 81 mg Tablet,Chewable 81 mg PO DAILY RF: 0 quetiapine 25 mg Tablet 25 mg PO BID RF: 0 alogliptin 6.25 mg Tablet 6.25 mg PO DAILY RF: 0 Discontinued budesonide-formoterol [Symbicort] 160-4.5 mcg/actuation Hfa Aerosol Inhaler 2 puff INHALATION BID RF: 0 bumetanide 1 mg Tablet 1 mg PO DAILY RF: 0 budesonide-formoterol 160-4.5 mcg/actuation Hfa Aerosol Inhaler 2 puff INHALATION BID RF: 0 potassium chloride 20 mEq Tablet Extended Release 10 meq PO DAILY RF: 0 Discharge Orders: Discharge Order (Routine); Ordered 08/14/20 Ordered By: Malorie Theodore Admission Data Admit Date/Time: 08/08/20 23:19 Attending Provider: Malorie Theodore Admit Provider: Arsenio Leslie Primary Care Provider: PCP,NO Other Providers: Arsenio Leslie ; Lupillo Smith ; Susanne Yeung Coding Level of Care Code D/C Day Management >30 mins Diagnoses Acute and chronic respiratory failure with hypoxia J96.21 CKD (chronic kidney disease) stage 3, GFR 30-59 ml/min N18.3 Pneumonia J18.9 Acute diastolic (congestive) heart failure I50.31 Diabetes mellitus, type 2 E11.9 HTN (hypertension) I10 Hyperlipidemia E78.5 Chronic silicosis J62.8
== END 2020-08-14 15:04 | disposition hospice, home (50) | DRG 291 ==
LOC: ED 20:12 → 2S 23:19 → SUATTDRO 23:19 → 2S 23:56